=== PATIENT | male | born 1945 | race Caucasian/White ===

== ENCOUNTER 2019-01-08 19:21 | Inpatient (IN) ==
[2019-01-08] MEDS ORDERED: ICU PROTOCOL FOR HYPERGLYCEMIA PRN (23:19)
--- NOTE | 2019-01-08 23:45 | Critical Care Consultation ---
Date of Consultation January 08, 2019 Assessment & Plan (1) Admitted to intensive care unit: Reason Critically Ill: 73-year-old male in acute renal failure from presumed obstructive uropathy presenting with subsequent metabolic acidosis and hyperkalemia. NEURO - * CAM ICU: NEGATIVE * Pain: Consider Fentanyl if needed for flank pain in the setting of multiple renal stones. CARDIAC/VASCULAR - * Transient ?syncopal episode: * Lasted a few seconds. * No associated hypotension. * No seizure-like activity. * Nausea and diaphoresis noted. * EKG w/o acute findings. * Check trop --> will monitor trops in the severely anemic patient w/ potential for global ischemia. See Heme * EKG: NSR@83bpm. No ST/T-wave changes. QTc 493ms. * Monitor on telemetry. RESPIRATORY - * No h/o Pulmonary Disease. * Monitor for increasing O2 requirement s/p aggressive transfusion suggesting post transfusion lung injury (i.e. TACO/TRALI) GI/NUTRITION - * ??BRBPR: * No gross findings on rectal exam: Hemoccult NEGATIVE. * Prophylaxis: Famotidine * NPO currently RENAL/LYTES - * Acute Renal Failure: * Likely 2/2 Obstructive Uropathy in the setting of BPH, Multiple Ureteral Stones. * Initially put out 3L Clear urine at [facility] s/p Zuñiga placement. * Has since had gross hematuria. * In conversation w/ Urology, hematuria likely 2/2 diffuse bladder capillary injury w/ significant bladder dilation. * Monitor closely. Supportive care. * Avoid nephrotoxic Rx * Appreciate AM consultation. * Metabolic Acidosis: * 2/2 ARF. * AB.24/23/117/10, Serum BiCarb 13 * Will add Bicarb gtt. * Monitor electrolytes q4h. * Appreciate Nephrology consultation. * Hyperkalemia: * Likely 2/2 profound metabolic acidosis in combination w/ poor renal clearing. * Will treat as needed (insulin, dextrose, calcium, Kayexalate, bicarb) * Should see improvement w/ institution of BiCarb gtt. * IVF: D5W+150mEq HCO3@150mL/hr - * Prostate Enlargement: * Concerning in the setting of obstructive uropathy. * Keep Zuñiga in place. * Check PSA. * Ureterolithiasis, Nephrolithiasis: * Likely contributing to obstructive uropathy as well. * Agree w/ renal US. * Appreciate Urology consultation. * Gross Hematuria: * Per nephrology - likely diffuse bladder capillary injury. * Supportive care. * No bladder irrigation at this point. * Zuñiga in place - Strict I&Os. ENDO - * No h/o DM or Thyroid Dz * BSGs per unit protocol. ISS --> gtt per unit policy. HEME - * Anemia: * Presented to [facility] at 8.5/25 --> 7.1/21 upon arrival. * This is s/p 3 L so dilution is certainly contributing. * Of concern, however is the profound hematuria w/ significant drop in H&H over 2 hour in the department w/o any further dilution. * Will aggressively transfuse to maintain HGB ~8. * Trend Lactate for s/s of 2' ischemia. * Anticipate level of RBC/bone marrow suppression 2/2 ARF which has likely been deteriorating of the past 4 weeks. Will aggressively transfuse as patient likely to not produce significant RBCs in the acutely ill state. * Consider cell lysis in the anemic patient w/ hyperkalemia. Will add reticulocyte count. Consider haptoglobin, but as this is a send out, may be of little utility currently. ID - * No c/o infectious contribution at this time. * Trend fever curve. LINES/IV ACCESS - * PIVs x3 * Zuñiga DVT PROPHYLAXIS - * Will hold in the setting of anemia and likely degree of auto-anticoagulation in the profound uremic state. * SCDs I have personally spent 85 minutes of critical care time in the direct management of this patient. This is a life/limb threatening event. This includes time spent evaluating patient, direct bedside care, chart review, placing orders, interpretation of diagnostic studies, discussion with consultants, patient, and family members, as well as other required patient management activities. This time is exclusive of all separately billable procedures, and teaching time and separate from and in addition to any other critical care service time. Thank you for allowing us to participate in the care of this patient. Please refer to my attending physician's documentation for any further recommendations. (2) Acute renal failure (ARF): (3) Obstructive and reflux uropathy: (4) Hyperkalemia: (5) BPH (benign prostatic hyperplasia): (6) Hematuria: (7) Metabolic acidosis: (8) Syncope: (9) Anemia: Supervising Physician Co-Signing Physician Notes I have personally evaluated and examined this patient. I agree with assessment and plan of Marco Lopez PA-C. History of Present Illness Attending Physician: Franck Portillo DO History of Present Illness Patient is a 73-year-old male with significant past medical history of gout which is currently controlled with allopurinol alone who initially presented to the [facility] emergency department with complaints of ongoing abdominal discomfort and little to no urine output for the past 5 days. He reports that he has noticed some periumbilical abdominal discomfort rating his pain a 2/10 for the past month. He has noted nausea recently as well. With the poor urine output and nausea, he did present to the emergency department for further evaluation. While at the time in the emergency department, he was noted to have a significantly elevated systolic blood pressure greater than 200. He did receive 0.[address] the abdomen pelvis without contrast was obtained and demonstrated multiple renal stones as well as ureteral stones and bladder stones. His bladder was substantially distended with significant prostamegaly. Zuñiga catheter was placed and the patient drained 3 L of clear urine. Urinalysis demonstrated no signs of infection. Laboratory findings significant for anemia with hemoglobin of 8.5 and hematocrit of 25. Patient was found to be in acute renal failure with a BUN of greater than 150 and a creatinine of 25. Potassium was found to be 6.1. He received 2 L of normal saline in the emergency department and was subsequently transferred to our facility for further evaluation and management. Upon arrival in the ICU via ambulance, the patient was noted to be diaphoretic. He was complaining of some lower back pain which he equates to a prior history of back injury. The back pain is not new for him. Per nursing, during this episode of diaphoresis, he complained of nausea and did transiently lose consciousness for what was thought to be approximately 2 seconds. The patient does not remember this. During this episode, he complained of nausea alone. There was no complaints of chest pain, shortness of breath, pleuritic pain, abdominal pain, or numbness/weakness to the extremities. Patient states that he has had poor urine output for the past month, but acquitted to his history of enlarged prostate. He reports little to no urine output for the past 5 days. He does have the urge to go, but cannot pass urine. In addition, he reports that he has been constipated for the past few days as well and is only been having smears of stool. He did notice some blood in his smears recently, but no marco blood or significant black/tarry stools. Patient currently denies any headaches, dizziness, lightheadedness, chest pain, palpitations, shortness of breath, pleuritic pain, hematemesis, hematochezia or melena. He denies any significant alcohol use or illicit substance abuse. He reports a history of kidney disease. Allergies Allergy/AdvReac Type Severity Reaction Status Date / Time indomethacin [From Indocin] Allergy Unknown Unknown Verified 01/08/19 23:16 Home Medications Home Medications Medication Instructions Recorded Confirmed Type allopurinol PO DAILY 01/08/19 History Patient History Social History Preferred Language: Occitan Communication Ability: Effective Iron Pourer Required: No Beliefs That Will Affect Care: None Current Living Situation: Alone Other Information That Helps Us Care for You: No Feels Safe at Home: Yes Safety Concerns: Feels Safe At This Time Smoking Status: Former smoker Do You Dip or Chew Tobacco: No ; Hx Alcohol Use: No Hx Substance Use: No Review of Systems Review of Systems: A complete 10 point review of systems was reviewed with the patient with pertinent positives and negatives as per history of present illness. All else were negative. Physical Exam Physical Exam: VITAL SIGNS - Vital signs and nursing notes were reviewed. GENERAL - 73-year-old male appearing his stated age who is in no acute distress. Communicates well with provider and answers questions appropriately. SKIN -yellowish hue. HEAD - NC/AT. EYES - PERRL with EOMI bilaterally. Sclera anicteric. Palpebral conjunctiva pink and moist with no injection noted. EARS - No deformities of external structures noted on gross examination bilaterally. NOSE - Midline and without cyanosis. No epistaxis or purulent drainage noted. Septum midline without deviation or septal hematoma noted. MOUTH/OROPHARYNX - Without perioral cyanosis. Buccal mucosa pink and moist and without leukoplakia. Tongue midline with equal elevation of palate bilaterally. NECK - Neck with FROM. Supple to palpation. No nuchal rigidity. LUNGS - Chest wall symmetric without accessory muscle use, intercostals retractions, or central cyanosis. Normal vesicular breath sounds CTA B/L. No wheezes, rales, or rhonchi appreciated. CARDIAC - RRR with S1/S2. No murmur, rubs, or gallops appreciated. ABDOMEN - Abdominal contour flat without pulsations or visible masses. BS normoactive all four quadrants. No tenderness, palpable masses, hepatosplenomegaly, or ascites noted. EXTREMITIES - No clubbing or peripheral cyanosis. No pretibial edema present. +3/5 radial and dorsalis pedis pulses palpated throughout. +5/5 strength noted in UE/LE bilaterally. NEUROLOGIC - Cranial nerves II through XII grossly intact. Sensory intact to light touch throughout. Mild asterixis appreciated. PSYCH - A&Ox3 and cooperates fully with examiner. Pt is very pleasant and in teracts well with examiner. Results & Data Vital Signs (Past 12 Hours) Vital Signs Temp Pulse Pulse Resp BP BP Pulse Ox 01/08/19 23:01 36.7 C 86 25 H 103/59 L 100 01/08/19 23:00 92 H 16 163/103 H 98 PG Care Time/CCT Total # of Minutes Spent Total Time Spent with Patient: Total time spent is greater than 50% in coordination of care (as documented) at patient's floor/unit and/or counseling patient: Critical Care Time: Yes Total Critical Care Time: 85
[2019-01-08 23:52] LABS: iSTAT Allen Test Pass; iSTAT Art Bld Gas pCO2 Correct 23 mmHg (35-46); iSTAT Art Bld Gas pH Corrected 7.248 (7.35-7.45); iSTAT Arterial Blood Gas HCO3 10 meg/L (19-24); iSTAT Arterial Blood Gas pCO2 23 mmHg (35-46); iSTAT Arterial Blood Gas pH 7.24 (7.35-7.45); iSTAT Carbon Dioxide 11 mEq/l (24-31); iSTAT Site R Radial
[2019-01-08 23:58] LABS: INR 1.1 (0.9-1.1); Partial Thromboplastin Ratio 0.9; Partial Thromboplastin Time 25.7 Seconds (21.0-31.0); Prothrombin Time 11.5 Seconds (9.0-12.0)
[2019-01-09 00:30] LABS: Alanine Aminotransferase 11 U/L (12-78); Albumin Level 3.2 gm/dl (3.4-5.0); Alkaline Phosphatase 75 U/L (45-117); Aspartate Aminotransferase 6 U/L (15-37); BUN Creatinine Ratio 7.1 (10-20); Bilirubin Direct 0.1 mg/dl (0-0.2); Bilirubin,Total 0.5 mg/dl (0.2-1); Blood Urea Nitrogen 152 mg/dl (7-18); Carbon Dioxide 13 mmol/L (21-32); Chloride 109 mmol/L (98-107); Creatinine Clr Calc Pharmacy 2.9 ml/min; Est GFR (African American) 2.1; Est GFR (Non-African American) 1.8; Glucose 148 mg/dl (70-99); Magnesium 3.4 mg/dl (1.8-2.4); Phosphorus 8.7 mg/dl (2.5-4.9); Potassium 6.1 mmol/L (3.5-5.1); Sodium 139 mmol/L (136-145); Total Protein 7.1 gm/dl (6.4-8.2); Troponin I < 0.015 ng/ml (0-0.045)
[2019-01-09] MEDS ORDERED: NovoLIN-R INSULIN PER UNIT CHARGE IV STA (00:31)
[2019-01-09] MEDS ORDERED: DEXTROSE 50% 50 ML SYRINGE IV ONE (00:31)
[2019-01-09 00:33] LABS: Basophils # (auto) 0.01 K/uL (0-0.2); Basophils % (auto) 0.1 %; Eosinophils # (auto) 0.01 K/uL (0-0.5); Eosinophils % (auto) 0.1 %; Hematocrit (blood only) 20.9 % (42-52); Hemoglobin 7.1 g/dL (14.0-18.0); Immature Granulocytes # (auto) 0.02 K/uL (0.00-0.02); Immature Granulocytes % (auto) 0.2 %; Lymphocytes # (auto) 0.52 K/uL (1.2-3.4); Lymphocytes % (auto) 4.3 %; Mean Corpuscular Volume 91.7 fL (80-100); Mean Platelet Volume 11.1 fL (7.4-10.4); Monocytes # (auto) 0.39 K/uL (0.11-0.59); Monocytes % (auto) 3.2 %; Neutrophils # (auto) 11.26 K/uL (1.4-6.5); Neutrophils % (auto) 92.1 %; Platelet Count 143 K/uL (130-400); RDW Coefficient of Variation 14.1 % (11.5-14.5); RDW Standard Deviation 46.5 fL (36.4-46.3); Red Blood Count 2.28 M/uL (4.7-6.1); White Blood Count 12.21 K/uL (4.8-10.8)
[2019-01-09] MEDS ORDERED: SODIUM CHLORIDE 0.9% 250 ML IV PRN ×4 (00:33→19:52)
[2019-01-09 00:39] LABS: RBC Morphology Unremarkable
[2019-01-09] MEDS ORDERED: INSULIN HUMAN REGULAR PER UNIT 10 UNITS in SYRINGE 9.9 ML IV ONE (00:45)
[2019-01-09] MEDS ORDERED: CALCIUM GLUCONATE 10% 1,000 MG in SODIUM CHLORIDE 0.9% 50 ML IV ONE (00:45)
[2019-01-09 00:49] LABS: Immature Retic Fraction 6.8 % (2.3-13.4); Reticulated Hemoglobin 33.2 pg (28.2-36.6); Reticulocyte % 1.5 % (0.5-2.0); Reticulocytes # 0.03 10^6/uL (0.02-0.10)
[2019-01-09] MEDS: FAMOTIDINE 20 MG in SYRINGE 3 ML IV SCH ×3 (01:00→21:22)
[2019-01-09] MEDS: SODIUM BICARBONATE 8.4% 150 MEQ in DEXTROSE 5% 1,000 ML IV SCH ×4 (01:00→23:24)
--- NOTE | 2019-01-09 01:44 | History and Physical Report ---
DATE OF ADMISSION: 01/08/2019 CHIEF COMPLAINT: Abdominal pain, found to have MACI and hyperkalemia. HISTORY OF PRESENT ILLNESS: This is a 73-year-old male with past medical history significant gout, diagnosed with enlarged prostate about 4 years ago, but he did not follow up. He is from [place]. His family doctor is at [facility]. Currently, he has changed doctor and he is following with a nurse practitioner,has history of gout. Denies any other medical problems. He is having some abdominal discomfort since about 2-3 weeks, like whenever he leans forward, heavy ball like feeling in his belly and since last 1 week he is having very little amount of urine. He is constipated since the last few days and today also noticed small amount of blood in the stools. He went to the [facility] where he was found to have creatinine of 20.5, potassium of 6.4, and CAT scan of the abdomen and pelvis done, which showed prostatomegaly and obstructive uropathy, also multiple stones in the ureter and kidneys, status post Zuñiga catheter at [facility] and drained about 3 liters of urine and was transferred here for further management. Now, he is having hematuria in the Zuñiga bag. The patient says he is feeling somewhat chilly and shaky and he thinks possibly his blood pressure is going up and down, it is going on for the last few days. Denies any headache. Complains of some dizziness. No blurred vision, no sore throat, no difficulty swallowing. No appetite since last couple of days. Denies any chest pain, no shortness of breath, no cough, was feeling nauseous. He had some swelling of the legs, but that is gone now. No rash. Otherwise, until this happened, he was very active. He lives alone. His sister lives in [place]. ALLERGIES: INDOCIN. PAST MEDICAL HISTORY: As mentioned above. PAST SURGICAL HISTORY: Appendectomy, tonsillectomy, arthroscopy of his wrist and elbow. MEDICATIONS: Allopurinol. FAMILY HISTORY: Father of alcoholism. SOCIAL HISTORY: Used to smoke pipe, quit about 7 years ago. Denies alcoholism. No drug use. Lives alone. REVIEW OF SYMPTOMS: As per HPI. Rest of review of symptoms negative. PHYSICAL EXAMINATION: GENERAL: The patient is of moderate build, not in acute distress. VITAL SIGNS: Temperature 36.7, pulse 86, respiratory rate 24, blood pressure 103/59, oxygen 100% on room air. HEENT: No pallor, no icterus. Pupils equal, round, and reactive to light. Oral mucosa moist. NECK: No JVD, no neck masses, no carotid bruit, no lymphadenopathy. CARDIOVASCULAR: S1, S2 heard. Regular rate and rhythm. No murmur, no gallop. RESPIRATORY SYSTEM: Normal AP diameter. No accessory muscle use. No wheezing, no crackles. ABDOMEN: Soft, bowel sounds present. Mild abdominal discomfort. Palpation of mass in the lower abdomen. No flank tenderness. CENTRAL NERVOUS SYSTEM: Cranial nerves II-XII grossly intact. Nonfocal. EXTREMITIES: No edema, no erythema. LABORATORY DATA: Labs done at [facility] show PT 12.5, INR 1, APTT 31.8. WBC 5.9, hemoglobin 8.5, hematocrit 25.4, platelets 126. Lactic acid is 0.6. Sodium 138, potassium 6.4, chloride 100, bicarbonate 16, anion gap 28, blood urea nitrogen 175, creatinine 125, glucose 110, calcium 9.4, total bilirubin 0.5, AST 7, ALT 14, alkaline phosphatase 88. Amylase 265. Lipase 3400. Urinalysis unremarkable. CT abdomen and pelvis, markedly distended bladder, enlarged prostate, multiple calculi in kidneys, ureters and urinary bladder. EKG done in our hospital. Normal sinus rhythm with rate of 83, Q-waves in inferior leads. ASSESSMENT AND PLAN: This is a 73-year-old male presents with abdominal discomfort and found to have acute kidney injury and obstructive uropathy. 1. Acute kidney injury with creatinine of 25 in the [facility] labs and also CAT scan showing distended bladder with prostatomegaly and renal stones in kidney and ureter, drained about 3 liters of fluid after Zuñiga was placed at [facility]. He was notified he had enlarged prostate about 4 years ago, but did not follow up. We will continue Zuñiga. Fluids as per the rn employee health. We will consult nephrology and urology.Will get renal ultrasound. Closely monitor in the ICU. 2. Hyperkalemia. Potassium of 6.2. We will repeat the labs now. EKG looks okay, if still elevated, we will give calcium gluconate, insulin and dextrose. The patient also has anion gap metabolic acidosis secondary to above. We will discuss with the critical care about placing him on bicarbonate drip, consulting nephrology. 3. gout, on allopurinol. 4. Anemia, hemoglobin of 8.5. We will repeat labs now. He said he had a small blood in the stools today and also having Hematuria. We will check the stool sample. If necessary, we will consult GI. Urology is consulted. We will transfuse as needed. Could also be from his ongoing illness. 5. Deep venous thrombosis prophylaxis, SCDs. DISPOSITION: Closely monitor in the ICU. Level 1 full code only if there is a chance of recovery as per my discussion with the patient. MTDD
[2019-01-09 02:11] LABS: Hematocrit (blood only) 17.2 % (42-52); Hemoglobin 5.8 g/dL (14.0-18.0)
[2019-01-09 02:44] LABS: Calcium 7.9 mg/dl (8.5-10.1); Creatinine Clr Calc Pharmacy 2.9 ml/min; Est GFR (African American) 2.1; Est GFR (Non-African American) 1.8; Magnesium 3.3 mg/dl (1.8-2.4); Potassium 6.1 mmol/L (3.5-5.1)
[2019-01-09] MEDS ORDERED: SODIUM BICARB 8.4% INJ 50 MEQ/50 ML SYR IV STA (02:59)
[2019-01-09 03:01] LABS: Phosphorus 8.4 mg/dl (2.5-4.9)
[2019-01-09 03:14] LABS: BUN Creatinine Ratio 7.4 (10-20)
--- NOTE | 2019-01-09 06:01 | Critical Care Progress Note ---
Date of Service January 09, 2019 Assessment & Plan (1) Obstructive and reflux uropathy: Reason Critically Ill: 73-year-old male who presented to [facility] with weakness and abdominal distension and was found to have a Cr>21.5 & BUN >180, had 3L of fluid expressed following Christopher cath at OSH, and who was transferred here for further care and whose course was complicated by acute anemia with sanginous/serosanginous output into his christopher catheter. Neuro - CAM ICU: NEGATIVE No pain at time of exam. Fentanyl 50-100mcg PRN for pain if needed Cardiac - History of syncopal episode - Single episode lasting a few seconds prior to admission and without seizure activity, hypotension, or EKG change but with nausea and diaphoresis. - Trop I initially negative, .079 at midnight, repeat downtrending to .076 @ noon - EKG nsr without ST depression/elevation or T wave inversions. - Monitor on tele Respiratory - - No history of pulmonary disease - Lungs clear to auscultation, no congestion on CXR. - At risk for TACO/TRALI given xfusions GI - NPO advance to renal diet Famotidine 20mg IV BID Reported BRBPR, hemoccult negative RENAL/LYTES - Acute Renal Failure 2/2 Obstructive Uropathy - Admission cr 21.5 with BUN 180, no known prior renal disease - 3L clear urine output at OSH s/p christopher placement - 3L drained at once, hematuria since. Suspect diffuse bladder capillary injury. Discussed with urology. - Urology consulted, nephrology consulted - L Jugular dialysis access line placed, scheduled for dialysis today Metabolic Acidosis 2/2 Acute Renal Failure - Bicarb IV 150cc/hr - BMP Q8H - Dialysis per nephrology Hyperkalemia 2/2 ARF & metabolic acidosis - s/p insulin, dextrose, calcium, bicarb tx - Pending dialysis tx - Obstructive Uropathy 2/2 Prostatomegaly vs Nephrolithiasis - PSA 21, consistent with observed prostatomegaly - Renal US showed severe bilateral hydroureteronephrosis, a large bladder mass vs pseudomass noted by radiology to be less likely though not excluded for neoplasm given it was not on CT. Urologic consultation for cystoscopy recommended. Bladder continues to be distended, christopher was clamped prior to exam. Heterogenous clot on bedside US, case discussed with Urology who will see him at bedside this afternoon with possible placement of triple lumen Hematuria 2/2 diffuse capillary injury - Continue to follow - Clot management as noted above ENDO - Insulin aspart SSI Adequate glycemic control today HEME - - Hgb nathaniel from 5.8 to 8.8 follow 2uPRBC, +1 unit pRBC this AM for hgb fall to 7.0 - Hematuria with clot present as noted above - CBC Q8H ID - No concerns for infection at this point. Monitor fever curve. INTEGUMENTARY - No acute concerns LINES/IV ACCESS - PIVs intact. DVT PROPHYLAXIS - Heparin 5,000u SQ BID Thank you for allowing us to be part of this patient's care. Please refer to []'s documentation for any further recommendations. (2) Acute renal failure (ARF): (3) Hyperkalemia: (4) BPH (benign prostatic hyperplasia): (5) Hematuria: (6) Metabolic acidosis: (7) Anemia: (8) Nephrolithiasis: (9) Hyperphosphatemia: (10) Hypertension: (11) Admitted to intensive care unit: Supervising Physician Co-Signing Physician Notes Dr. Mcghee was resident physician during care of patient. I separately evaluated patient for burnett portions of the history and the exam. I was present during the critical portion of medical decision making, and I discussed the case with the resident. I generally agree with the findings and plan. Patient will require urgent dialysis secondary to significant hyperkalemia and significant uremia. Patient is coherent and able to consent, understands gravity of situation has coherent thought processes and logical reasoning. Patient still has hematuria however it is not clotting, he has received 3 units packed red blood cells and we will continue to trend his H&H and BMP at the same time. Will start renal diet. Discussed with nephrology the patient to undergo hemodialysis today, I assisted with the placement of a left IJ temporary hemodialysis catheter. Reviewed nephrology notes and concur. I have personally spent 45 minutes of critical care time in the direct management of this patient. This is a life/limb threatening event. This includes time spent evaluating patient, direct bedside care, chart review, placing orders, interpretation of diagnostic studies, discussion with consultants, patient, and/or family members regarding treatment decisions, as well as other required patient management activities. This time is exclusive of all separately billable procedures, and teaching time and separate from and in addition to any other critical care service time. Subjective Mr. Mckenzie reports he feels fatigued today. He reports that prior to transfer to [facility] he felt tremulous, lighteaded,dizzy, and gobally weak. He reports since catheterization at OSH and transfer to [facility] he feels his tremors have gotten better. His lightheadedness/dizzyness have improved but 'I have not been out of bed yet so can't really be sure.' He denies abdominal pain, back pain, shortness of breath, chest pain, chest pressure, palpitations, back pain, flank pain, and focal weakness this morning. He reports that he didn't experience abdominal pain at any point prior to admission, but rather felt 'some pressure' and noticed 'a bowling ball in my belly.' He denies past cardiac, respiratory, urinary, alcohol, and substance use. Endorses former tobacco use. He is concerned about what the next steps in his care are, and whether he will require dialysis. His son is present at time of vist and was updated on both his presentation and history. Review of Systems Review of Systems: Constitutional: Denies fever, chills, malaise, weight change Eyes: Denies double vision, vision change, eye pain ENT: Denies ear pain, sore throat, sinus pain Cardiovascular: Denies chest pain, chest pressure, palpitations Respiratory: Denies shortness of breath, sputum production, difficulty breathing. Endorses mild cough this morning. Gastrointestinal: Denies abdominal pain, nausea, vomiting, constipation, diarrhea. Endorses low abdominal distension improved from prior. Genitourinary: Denies pain with urination. Christopher in place. Musculoskeletal: Denies endorses global weakness without focal weakness, muscle aches/pain, joint aches/pain Integumentary:Denies rash, lesions, bruising Neurological: Denies headache, numbness, tingling, focal weakness Physical Exam Physical Exam: General: A&Ox3. NAD. Cooperative. Answers questions appropriately. Thought process linear, goal directed. HEENT: Atraumatic, normocephalic. PERLAA. EoM intact without nystagmus. No scleral icterus. Pulm: CTAB A&P. -wheezes, -rales, -rhonchi. Symmetrical chest rise. No increase work of breathing. No respiratory distress. Cardiac: RRR, -mrg. Radial pulses intact and symmetrical. Abdominal: Firm low central/RLQ abdominal distension. Nontender. BS present. No CVA tenderness. : Christopher in place, clamped, with serosanguinous urine in catheter bag. Ext: Mild asterixis. No distal extremity edema. Sensation intact in distal extremiteis, strength 5/5 in distal extremities including ict customer support officer, wrist flexi on/extension, elbow flexion/extension, and ankle dorsiflexion/plantarflexion. Results & Data Vital Signs (Past 12 Hours) Vital Signs Temp Pulse Pulse Resp BP BP Pulse Ox 01/09/19 05:36 36.4 C L 16 134/89 98 01/09/19 05:25 36.4 C L 78 20 135/90 100 01/09/19 05:05 36.9 C 82 20 135/80 99 01/09/19 04:44 36.7 C 92 H 14 135/81 100 01/09/19 04:20 36.4 C L 82 18 138/89 99 01/09/19 03:49 36.6 C 86 20 136/75 100 01/09/19 03:34 36.5 C 93 H 20 131/73 100 01/09/19 03:16 36.7 C 85 20 109/70 99 01/09/19 02:30 36.7 C 92 H 18 101/59 L 98 01/09/19 02:15 36.7 C 98 H 20 105/72 100 01/09/19 01:56 36.7 C 101 H 20 80/55 L 100 01/09/19 01:00 92 H 14 110/72 100 01/09/19 00:15 87 16 104/63 100 01/09/19 00:00 98 H 13 93/59 L 99 01/08/19 23:01 36.7 C 86 25 H 103/59 L 100 01/08/19 23:00 92 H 16 163/103 H 98 PG Care Time/CCT Total # of Minutes Spent Total Time Spent with Patient: Total time spent is greater than 50% in coordination of care (as documented) at patient's floor/unit and/or counseling patient: Critical Care Time: Yes Total Critical Care Time: 45 Resident Activity Tracking Resident Involvement: Resident Care Provided Care Provided: Adult [facility] Medicine
[2019-01-09 07:06] LABS: INR 1.1 (0.9-1.1); Prothrombin Time 11.5 Seconds (9.0-12.0)
[2019-01-09 07:20] LABS: Basophilic Stippling 1+; Basophils # (auto) 0.01 K/uL (0-0.2); Basophils % (auto) 0.1 %; Hematocrit (blood only) 25.4 % (42-52); Hemoglobin 8.8 g/dL (14.0-18.0); Immature Granulocytes # (auto) 0.02 K/uL (0.00-0.02); Immature Granulocytes % (auto) 0.2 %; Lymphocytes # (auto) 0.47 K/uL (1.2-3.4); Lymphocytes % (auto) 4.8 %; Mean Corpuscular Hgb Conc 34.6 g/dL (32-36); Mean Corpuscular Volume 87.3 fL (80-100); Mean Platelet Volume 11.2 fL (7.4-10.4); Monocytes # (auto) 0.47 K/uL (0.11-0.59); Monocytes % (auto) 4.8 %; Neutrophils # (auto) 8.75 K/uL (1.4-6.5); Neutrophils % (auto) 90.1 %; Platelet Count 99 K/uL (130-400); Platelet Estimate Decreased (Normal); RDW Coefficient of Variation 14.2 % (11.5-14.5); RDW Standard Deviation 45.5 fL (36.4-46.3); Red Blood Count 2.91 M/uL (4.7-6.1); White Blood Count 9.72 K/uL (4.8-10.8)
[2019-01-09 07:22] LABS: BUN Creatinine Ratio 7.2 (10-20); Creatinine Clr Calc Pharmacy 3.1 ml/min; Est GFR (African American) 2.3; Magnesium 3.3 mg/dl (1.8-2.4); Phosphorus 8.4 mg/dl (2.5-4.9); Troponin I 0.079 ng/ml (0-0.045)
--- NOTE | 2019-01-09 07:39 | XRay Report ---
XR chest 1V portable HISTORY: Shortness of breath. congestion? COMPARISON: None. FINDINGS: The lungs are clear. Cardiac silhouette is normal in size. No pleural effusions. No pneumot horax. IMPRESSION: No acute process. Electronically signed by: Sanchez Yanes M.D. 01/09/2019 7:37 AM
--- NOTE | 2019-01-09 07:41 | Urology Consultation ---
Date of Consultation January 09, 2019 Assessment & Plan (1) BPH (benign prostatic hyperplasia): (2) Hematuria: 73yo M with ZHOU, bilateral hydronephrosis and hydroureter with severe MACI, hematuria Continue strict I&Os Discussed with Dr. Grande, need to allow for max drainage/decompression of bladder for a few days, and allow for medical stability prior to discussing surgical intervention/stenting. CT images reviewed, possible small ~2mm left distal ureteral stone however due to degree of hydroureter, pt will likely pass this spontaneously. NO plans for acute surgical intervention at this time, okay to provide diet from our standpoint. Appreciate nephrology's recommendations. Thank you for allowing us to participate in the acute care of Mr. Potts. We will continue to monitor peripherally while inpatient. Supervising Physician Co-Signing Physician Notes CT reviewed agree with above History of Present Illness Reason for Consultation: AUR, bilateral hydro, MACI Requesting Physician: Dr. Portillo Attending Physician: Franck Portillo, DO History of Present Illness 73yo M with PMHx BPH and gout admitted through [facility] with c/o worsening abdominal pain, constipation and urinary retention for a 2-3 weeks time. On presentation to [facility], his creatinine was 20.5, potassium of 6.5. CT reveals grossly bilateral severe hydronephrosis and hydroureter with distended bladder, BPH, few bladder stones. Possibly with bilateral ureteral stones, nonobstructing due to degree of hydroureter.. He did report some chills after christopher catheter placed, labile BPs. Christopher catheter placed in [facility], drained ~3L output then turned to hematuria. In addition, he was found to be hyperglycemic and acutely anemic, receiving transfusion while assessing pt this AM He appears comfortable on exam today, son at bedside. He is alert and oriented, on RA. Denies n/v/f/c. NPO awaiting our recommendations. He has previously followed with Urology in [place], has not been seen in a few years. Does not take any medications for BPH Stays active and exercises routinely, in otherwise good health. Allergies Allergy/AdvReac Type Severity Reaction Status Date / Time indomethacin [From Indocin] Allergy Unknown Unknown Verified 01/08/19 23:16 Patient History Social History Preferred Language: Divehi Communication Ability: Effective Creative Coordinator Required: No Beliefs That Will Affect Care: None Current Living Situation: Alone Other Information That Helps Us Care for You: No Feels Safe at Home: Yes Safety Concerns: Feels Safe At This Time Smoking Status: Former smoker Do You Dip or Chew Tobacco: No ; Hx Alcohol Use: No Hx Substance Use: No Review of Systems Review of Systems: Constitutional: Denies fever, chills, sweats, malaise Eyes: Denies problem reported ENMT: Denies dizziness Resp: Denies cough, Denies shortness of breath CV: Denies JVD GI: Denies nausea/vomiting : +hematuria, Denies suprapubic or flank pain, dysuria, urgency, frequency, MS: Denies swelling, stiffness Integ: Denies rash, erythema Neuro: Denies falls, weakness Psych: Denies behavior change Endo: Denies polyphagia, polydipsia Heme: Denies easy bleeding Physical Exam Constitutional: no acute distress and not ill appearing Eyes: no nystagmus ENMT: Ears: no hearing impairment Neck: trachea midline Respiratory: no respiratory distress and no cough Cardiovascular: Vessels: no JVD Chest (Breasts): Chest: normal inspection of chest Gastrointestinal (Abdomen): Inspection/Auscultation: abdomen not distended and no abdominal edema Percussion/Palpation: abdomen soft and + abdomen firm; abdomen nontender and no guarding Musculoskeletal: Head/Neck/Chest: normocephalic and head atraumatic Skin: no rashes, warm and dry Neurologic: awake; not confused and not obtunded Psychiatric: Orientation: alert and oriented x 3 Eye Contact: good eye contact Affect: no depressed affect Genitourinary: no CVA tenderness circumcised, 16fr christopher cather draining maroon colored urine. Has not required irrigation per nursing. Lymphatic: no lymphadenopathy and no lymphedema Results & Data Vital Signs (Past 12 Hours) Vital Signs Temp Pulse Pulse Resp BP BP Pulse Ox 01/09/19 07:33 37.1 C 82 23 153/116 H 98 01/09/19 07:27 37.1 C 97 H 17 152/103 H 99 01/09/19 06:40 36.5 C 91 H 20 170/95 H 99 01/09/19 06:10 36.9 C 89 14 152/78 H 99 01/09/19 05:55 36.5 C 85 20 166/83 H 100 01/09/19 05:36 36.4 C L 16 134/89 98 01/09/19 05:25 36.4 C L 78 20 135/90 100 01/09/19 05:05 36.9 C 82 20 135/80 99 01/09/19 04:44 36.7 C 92 H 14 135/81 100 01/09/19 04:20 36.4 C L 82 18 138/89 99 01/09/19 03:49 36.6 C 86 20 136/75 100 01/09/19 03:34 36.5 C 93 H 20 131/73 100 01/09/19 03:16 36.7 C 85 20 109/70 99 01/09/19 02:30 36.7 C 92 H 18 101/59 L 98 01/09/19 02:15 36.7 C 98 H 20 105/72 01/09/19 01:56 36.7 C 101 H 20 80/55 L 100 01/09/19 01:00 92 H 14 110/72 01/09/19 00:15 87 16 104/63 100 01/09/19 00:00 98 H 13 93/59 L 99 01/08/19 23:01 36.7 C 86 25 H 103/59 L 100 01/08/19 23:00 92 H 16 163/103 H 98
[2019-01-09 07:48] LABS: Base Excess VBG -4.9 mEq/L; HCO3 VBG 19 mmol/L; PCO2 VBG 32 mmHg (38-50); PO2 VBG 30 mmHg
[2019-01-09 07:53] LABS: Oxygen Saturation VBG < 60.0 %
--- NOTE | 2019-01-09 08:22 | Hospitalist Progress Note ---
Date of Service January 09, 2019 Assessment & Plan (1) Anemia: (2) Syncope: (3) Metabolic acidosis: (4) Hematuria: (5) BPH (benign prostatic hyperplasia): (6) Hyperkalemia: (7) Obstructive and reflux uropathy: (8) Acute renal failure (ARF): (9) Admitted to intensive care unit: ASSESSMENT AND PLAN: This is a 73-year-old male presents with abdominal discomfort and found to have acute kidney injury and obstructive uropathy. 1. Acute kidney injury with creatinine of 25 in the [facility] labs and also CAT scan showing distended bladder with prostatomegaly and renal stones in kidney and ureter, drained about 3 liters of fluid after Zuñiga was placed at [place]. He was notified he had enlarged prostate about 4 years ago, but did not follow up. We will continue Zuñiga. Fluids as per the feather sawyer. We will consult nephrology and urology.Will get renal ultrasound. Closely monitor in the ICU. 2. Hyperkalemia. Potassium of 6.2. We will repeat the labs now. EKG looks okay, if still elevated, we will give calcium gluconate, insulin and dextrose. The patient also has anion gap metabolic acidosis secondary to above. We will discuss with the critical care about placing him on bicarbonate drip, consulting nephrology. 3. gout, on allopurinol. 4. Anemia, hemoglobin of 8.5. We will repeat labs now. He said he had a small blood in the stools today and also having Hematuria. We will check the stool sample. If necessary, we will consult GI. Urology is consulted. We will transfuse as needed. Could also be from his ongoing illness. 5. Deep venous thrombosis prophylaxis, SCDs. ROS-No Headache, No Visual Changes, No Nausea, No Vomiting, No Fever, No Chills, No Neck Pain or Stiffness, No Chest Pain, No Palpitations, No SOB, No MOREIRA, No Cough, No Sputum, No Wheezing, No Abdominal Pain, No Diarrhea, No Hematemesis, No Hemoptysis, No Unexpected Weight Loss, No Flank pain, No Melena, No Hematochezia, No Frequency, No Urgency, No Burning, No Hematuria, No Rashes, No Diaphoresis. Appetite is Normal Physical Exam Gen-AAO x 3, NAD, Afebrile Head-NCAT, EOMI, PERRLA, Anicteric Sclera, No Posterior Pharyngeal Erythema Neck-Supple, No JVD, No Thyromegaly, No Masses, No LAD, No Bruits Lungs-Clear to Auscultation Bilaterally, No Rales, No Rhonchi, No Wheezing, No Crepitus Chest-No S4, +S1, +S2, No S3, No Murmurs, No Rubs, No Gallops, No Ectopy Abdomen-Soft, Bowel Sounds Present, Non Tender, Non Distended, No Hepatomegaly, No Splenomegaly, No Palpable Masses, No Rebound, No Rigidity, No Guarding Musculoskeletal-Full Range of Motion Bilaterally, No CVAT Extremities-No Cyanosis, No Clubbing, No Edema Nuero-Cranial Nerves II-XII grossly intact, Motor WNL, DTRs WNL, Strength WNL, Non Focal Psych-Normal Mood Results & Data Vital Signs (Past 12 Hours) Vital Signs Temp Pulse Pulse Resp BP BP Pulse Ox 01/09/19 07:33 37.1 C 82 23 153/116 H 98 01/09/19 07:27 37.1 C 97 H 17 152/103 H 99 01/09/19 06:40 36.5 C 91 H 20 170/95 H 99 01/09/19 06:10 36.9 C 89 14 152/78 H 99 01/09/19 05:55 36.5 C 85 20 166/83 H 100 01/09/19 05:36 36.4 C L 16 134/89 98 01/09/19 05:25 36.4 C L 78 20 135/90 100 01/09/19 05:05 36.9 C 82 20 135/80 99 01/09/19 04:44 36.7 C 92 H 14 135/81 100 01/09/19 04:20 36.4 C L 82 18 138/89 99 01/09/19 03:49 36.6 C 86 20 136/75 100 01/09/19 03:34 36.5 C 93 H 20 131/73 100 01/09/19 03:16 36.7 C 85 20 109/70 99 01/09/19 02:30 36.7 C 92 H 18 101/59 L 98 01/09/19 02:15 36.7 C 98 H 20 105/72 100 01/09/19 01:56 36.7 C 101 H 20 80/55 L 100 01/09/19 01:00 92 H 14 110/72 100 01/09/19 00:15 87 16 104/63 100 01/09/19 00:00 98 H 13 93/59 L 99 01/08/19 23:01 36.7 C 86 25 H 103/59 L 100 01/08/19 23:00 92 H 16 163/103 H 98 Current Diagnoses Anemia, unspecified (01/08/19) Acidosis (01/08/19) Hyperkalemia (01/08/19) Obstructive and reflux uropathy, unspecified (01/08/19) Acute kidney failure, unspecified (01/08/19) Benign prostatic hyperplasia without lower urinary tract symptoms (01/08/19) Hematuria, unspecified (01/08/19) Syncope and collapse (01/08/19) Other specified health status (01/08/19) Allergies indomethacin [From Indocin] Allergy (Unknown, Verified 01/08/19 23:16) Unknown Height/Weight/Isolation Height 5 ft 7 in Weight 76.8 kg Chemistry 01/08/19 01/09/19 01/09/19 23:34 01:57 06:25 Sodium 139 138 139 Potassium 6.1 H* 6.1 H* 6.0 H Chloride 109 H 108 H 105 Carbon Dioxide 13 L 14 L 19 L Anion Gap 18.0 H 17.0 H 15.0 H BUN 152 H 159 H 142 H Creatinine 21.50 H* 21.60 H* 19.90 H* D Glucose 148 H 261 H 210 H
[2019-01-09] MEDS: HEPARIN SOD 5,000 UNIT/0.5 ML VIAL SQ SCH ×2 (09:18→21:22)
--- NOTE | 2019-01-09 09:48 | Nephrology Consultation ---
Date of Consultation January 09, 2019 Assessment & Plan (1) Acute renal failure (ARF): Patient with acute renal failure likely due to chronic obstructive uropathy. CAT scan showed evidence of obstructive uropathy and multiple kidney stones at the outside hospital. We do not have official report. He is getting a renal ultrasound today. He is clearly uremic with multiple electrolyte derangements. I recommend starting hemodialysis for uremia, hyperkalemia and acidosis. He has consented to dialysis. We will dialyze him today for 2 hours, blood flow 250, dialysate flow 500 and no UF on a 1K bath. We will plan to dialyze him tomorrow as well. Plan was discussed with ICU attending (2) Hyperkalemia: Due to acute renal failure and acidosis. Agree with isotonic bicarbonate infusion until dialysis. We can stop the bicarb drip once a dialysis catheter is placed. We will dialyze him on a 1K bath. Patient should be on a renal diet (3) Anemia: Likely due to chronic renal failure. Will check iron stores and obtain further records from primary care doctor. He will likely need iron and Procrit if we are sure that he does not have prostate cancer. (4) Nephrolithiasis: Patient with kidney stones on imaging. He will need outpatient follow-up with nephrology for metabolic work-up of his kidney stones and further recommendations on management. (5) Hyperphosphatemia: We will start him on Renvela 800 mg 3 times daily with meals. (6) Hypertension: Blood pressure is high. Anticipate improvement with dialysis. He will likely need beta-alberto given episodes of tachycardia. No need to start antihypertensives now. Will wait to see the blood pressure trend after dialysis. History of Present Illness Reason for Consultation: Acute renal failure and hyperkalemia Requesting Physician: Eric Travis MD Attending Physician: Franck Portillo DO History of Present Illness This is a 73-year-old male with the past medical history of gout and BPH with elevated PSA 4 years ago but decided not to follow through with medical recommendations and has been managing conservatively by diet and exercise was admitted on 01/08/2019 with acute renal failure. He reports progressively worsening urinary symptoms such as urinary hesitancy and dribbling. The symptoms progressed to abdominal pain and distention which took him to the ER in [facility]. He was found to have a creatinine of 25 and a BUN of 175 with potassium of 6.4. CAT scan showed multiple small nonobstructive kidney stones and obstructive uropathy per ER report. Zuñiga catheter was placed, he was given normal saline IV and referred. He otherwise feels well denying any shortness of breath or confusion. He has nausea but no diarrhea. He did have some bloody stools yesterday. He reports some palpitations. Blood pressure was high with systolic of about 200 yesterday but now down to 150. He is also anemic with hemoglobin of 8.8. He does not smoke or drink alcohol. He lives in [place]. Son was at the bedside. Allergies Allergy/AdvReac Type Severity Reaction Status Date / Time indomethacin [From Indocin] Allergy Unknown Unknown Verified 01/08/19 23:16 Home Medications Home Medications Medication Instructions Recorded Confirmed Type allopurinol PO DAILY 01/08/19 History Patient History Social History Preferred Language: Latvian Communication Ability: Effective Global Account Executive Required: No Beliefs That Will Affect Care: None Current Living Situation: Alone Other Information That Helps Us Care for You: No Feels Safe at Home: Yes Safety Concerns: Feels Safe At This Time Smoking Status: Former smoker Do You Dip or Chew Tobacco: No ; Hx Alcohol Use: No Hx Substance Use: No Review of Systems Review of Systems: All systems reviewed & are unremarkable except as noted in HPI & below Physical Exam Physical Exam: General exam: Appears comfortable, no acute distress HEENT: Pupils are equal and reactive to light. moderate pallor Neck: No JVD, neck is supple trachea is midline Respiratory system: Clear breath sounds bilaterally. Gastrointestinal: Abdomen is soft, non distended, non tender, bowel sounds are present CVS: Regular rate and rhythm. No murmurs, rubs or gallops Musculoskeletal: No joint or muscle tenderness Extremities: Non tender, no edema, peripheral pulses are present Neuro: Oriented, + flapping tremors, no focal neurological deficits Skin: No rashes Results & Data Vital Signs (Past 12 Hours) Vital Signs Temp Pulse Pulse Resp BP BP Pulse Ox 01/09/19 07:33 37.1 C 82 23 153/116 H 98 01/09/19 07:27 37.1 C 97 H 17 152/103 H 99 01/09/19 06:40 36.5 C 91 H 20 170/95 H 99 08/27/19 06:10 36.9 C 89 14 152/78 H 99 01/09/19 05:55 36.5 C 85 20 166/83 H 100 01/09/19 05:36 36.4 C L 16 134/89 98 01/09/19 05:25 36.4 C L 78 20 135/90 100 01/09/19 05:05 36.9 C 82 20 135/80 99 01/09/19 04:44 36.7 C 92 H 14 135/81 100 01/09/19 04:20 36.4 C L 82 18 138/89 99 01/09/19 03:49 36.6 C 86 20 136/75 100 01/09/19 03:34 36.5 C 93 H 20 131/73 100 01/09/19 03:16 36.7 C 85 20 109/70 99 01/09/19 02:30 36.7 C 92 H 18 101/59 L 98 01/09/19 02:15 36.7 C 98 H 20 105/72 100 01/09/19 01:56 36.7 C 101 H 20 80/55 L 100 01/09/19 01:00 92 H 14 110/72 100 01/09/19 00:15 87 16 104/63 100 01/09/19 00:00 98 H 13 93/59 L 99 01/08/19 23:01 36.7 C 86 25 H 103/59 L 100 01/08/19 23:00 92 H 16 163/103 H 98 Laboratory Results Laboratory Results - last 24 hr 01/08/19 01/08/19 01/08/19 22:54 23:34 23:34 WBC 12.21 H RBC 2.28 L Hgb 7.1 L Hct 20.9 L* MCV 91.7 MCH 31.1 MCHC 34.0 RDW Std Deviation 46.5 H RDW Coeff of Yessy 14.1 Plt Count 143 MPV 11.1 H Immature Gran % (Auto) 0.2 Neut % (Auto) 92.1 Lymph % (Auto) 4.3 Doddridge % (Auto) 3.2 Eos % (Auto) 0.1 Baso % (Auto) 0.1 Reticulocyte % (Auto) 1.5 Immature Gran # (Auto) 0.02 Neut # (Auto) 11.26 H Lymph # (Auto) 0.52 L Doddridge # (Auto) 0.39 Eos # (Auto) 0.01 Baso # (Auto) 0.01 Reticulocyte # 0.03 Absolute Nucleated RBC 0.00 Nucleated RBC % (auto) 0.0 Platelet Estimate RBC Morphology Unremarkable Basophilic Stippling Immature Retic Fraction 6.8 Retic Hgb Content 33.2 PT INR APTT PTT Ratio Sample Site POC pH POC pCO2 POC pO2 POC HCO3 POC Total CO2 POC Base Excess ABG pH (Temp Correct) ABG pCO2 (Temp Corrct POC ABG pO2 at Pt Temp POC ABG O2 Sat Henrique Test VBG pH VBG pCO2 VBG pO2 VBG HCO3 VBG O2 Saturation VBG Base Excess Barometric Pressure O2 Delivery Device Sodium Potassium Chloride Carbon Dioxide Anion Gap BUN Creatinine Est Cr Clr Drug Dosing Est GFR ( Amer) Est GFR (Non-Af Amer) BUN/Creatinine Ratio Glucose POC Glucose Lactate Calcium Ionized Calcium Phosphorus Magnesium Total Bilirubin Direct Bilirubin AST ALT Alkaline Phosphatase Troponin I Total Protein Albumin Lipase Prostate Specific Ag Procalcitonin Nasal Screen MRSA (PCR) Negative Stool Occult Bld Scrn Hepatitis C Ab Screen Neg Blood Type Blood Type Recheck Antibody Screen Crossmatch 01/08/19 01/08/19 01/08/19 23:34 23:34 23:34 WBC RBC Hgb Hct MCV MCH MCHC RDW Std Deviation RDW Coeff of Yessy Plt Count MPV Immature Gran % (Auto) Neut % (Auto) Lymph % (Auto) Doddridge % (Auto) Eos % (Auto) Baso % (Auto) Reticulocyte % (Auto) Immature Gran # (Auto) Neut # (Auto) Lymph # (Auto) Doddridge # (Auto) Eos # (Auto) Baso # (Auto) Reticulocyte # Absolute Nucleated RBC Nucleated RBC % (auto) Platelet Estimate RBC Morphology Basophilic Stippling Immature Retic Fraction Retic Hgb Content PT 11.5 INR 1.1 APTT 25.7 PTT Ratio 0.9 Sample Site POC pH POC pCO2 POC pO2 POC HCO3 POC Total CO2 POC Base Excess ABG pH (Temp Correct) ABG pCO2 (Temp Corrct POC ABG pO2 at Pt Temp POC ABG O2 Sat Henrique Test VBG pH VBG pCO2 VBG pO2 VBG HCO3 VBG O2 Saturation VBG Base Excess Barometric Pressure O2 Delivery Device Sodium 139 Potassium 6.1 H* Chloride 109 H Carbon Dioxide 13 L Anion Gap 18.0 H BUN 152 H Creatinine 21.50 H* Est Cr Clr Drug Dosing 2.9 Est GFR ( Amer) 2.1 Est GFR (Non-Af Amer) 1.8 BUN/Creatinine Ratio 7.1 L Glucose 148 H POC Glucose Lactate 1.7 Calcium 8.0 L Ionized Calcium Phosphorus 8.7 H Magnesium 3.4 H Total Bilirubin 0.5 Direct Bilirubin 0.1 AST 6 L ALT 11 L Alkaline Phosphatase 75 Troponin I < 0.015 Total Protein 7.1 Albumin 3.2 L Lipase 1634 H Prostate Specific Ag 21.700 H Procalcitonin Nasal Screen MRSA (PCR) Stool Occult Bld Scrn Hepatitis C Ab Screen Blood Type Blood Type Recheck Antibody Screen Crossmatch 01/08/19 01/08/19 01/08/19 23:34 23:34 23:34 WBC RBC Hgb Hct MCV MCH MCHC RDW Std Deviation RDW Coeff of Yessy Plt Count MPV Immature Gran % (Auto) Neut % (Auto) Lymph % (Auto) Doddridge % (Auto) Eos % (Auto) Baso % (Auto) Reticulocyte % (Auto) Immature Gran # (Auto) Neut # (Auto) Lymph # (Auto) Doddridge # (Auto) Eos # (Auto) Baso # (Auto) Reticulocyte # Absolute Nucleated RBC Nucleated RBC % (auto) Platelet Estimate RBC Morphology Basophilic Stippling Immature Retic Fraction Retic Hgb Content PT INR APTT PTT Ratio Sample Site POC pH POC pCO2 POC pO2 POC HCO3 POC Total CO2 POC Base Excess ABG pH (Temp Correct) ABG pCO2 (Temp Corrct POC ABG pO2 at Pt Temp POC ABG O2 Sat Henrique Test VBG pH VBG pCO2 VBG pO2 VBG HCO3 VBG O2 Saturation VBG Base Excess Barometric Pressure O2 Delivery Device Sodium Potassium Chloride Carbon Dioxide Anion Gap BUN Creatinine Est Cr Clr Drug Dosing Est GFR ( Amer) Est GFR (Non-Af Amer) BUN/Creatinine Ratio Glucose POC Glucose Lactate Calcium Ionized Calcium 1.03 L Phosphorus Magnesium Total Bilirubin Direct Bilirubin AST ALT Alkaline Phosphatase Troponin I Total Protein Albumin Lipase Prostate Specific Ag Procalcitonin 0.23 Nasal Screen MRSA (PCR) Stool Occult Bld Scrn Hepatitis C Ab Screen Blood Type O Negative Blood Type Recheck Antibody Screen NEGATIVE Crossmatch See Detail 01/08/19 01/09/19 01/09/19 23:39 00:59 01:00 WBC RBC Hgb Hct MCV MCH MCHC RDW Std Deviation RDW Coeff of Yessy Plt Count MPV Immature Gran % (Auto) Neut % (Auto) Lymph % (Auto) Doddridge % (Auto) Eos % (Auto) Baso % (Auto) Reticulocyte % (Auto) Immature Gran # (Auto) Neut # (Auto) Lymph # (Auto) Doddridge # (Auto) Eos # (Auto) Baso # (Auto) Reticulocyte # Absolute Nucleated RBC Nucleated RBC % (auto) Platelet Estimate RBC Morphology Basophilic Stippling Immature Retic Fraction Retic Hgb Content PT INR APTT PTT Ratio Sample Site R Radial POC pH 7.24 L POC pCO2 23 L POC pO2 117 H POC HCO3 10 L POC Total CO2 11 L POC Base Excess -17.0 L ABG pH (Temp Correct) 7.248 L ABG pCO2 (Temp Corrct 23 L POC ABG pO2 at Pt Temp 115 POC ABG O2 Sat 98.0 H Henrique Test Pass VBG pH VBG pCO2 VBG pO2 VBG HCO3 VBG O2 Saturation VBG Base Excess Barometric Pressure O2 Delivery Device Room Air Sodium Potassium Chloride Carbon Dioxide Anion Gap BUN Creatinine Est Cr Clr Drug Dosing Est GFR ( Amer) Est GFR (Non-Af Amer) BUN/Creatinine Ratio Glucose POC Glucose Lactate Calcium Ionized Calcium Phosphorus Magnesium Total Bilirubin Direct Bilirubin AST ALT Alkaline Phosphatase Troponin I Total Protein Albumin Lipase Prostate Specific Ag Procalcitonin Nasal Screen MRSA (PCR) Stool Occult Bld Scrn Negative Hepatitis C Ab Screen Blood Type Blood Type Recheck O Negative Antibody Screen Crossmatch 01/09/19 01/09/19 01/09/19 01:57 01:57 06:25 WBC 9.72 RBC 2.91 L Hgb 5.8 L* 8.8 L D Hct 17.2 L* 25.4 L MCV 87.3 MCH 30.2 MCHC 34.6 RDW Std Deviation 45.5 RDW Coeff of Yessy 14.2 Plt Count 99 L MPV 11.2 H Immature Gran % (Auto) 0.2 Neut % (Auto) 90.1 Lymph % (Auto) 4.8 Doddridge % (Auto) 4.8 Eos % (Auto) 0.0 Baso % (Auto) 0.1 Reticulocyte % (Auto) Immature Gran # (Auto) 0.02 Neut # (Auto) 8.75 H Lymph # (Auto) 0.47 L Doddridge # (Auto) 0.47 Eos # (Auto) 0.00 Baso # (Auto) 0.01 Reticulocyte # Absolute Nucleated RBC Nucleated RBC % (auto) Platelet Estimate Decreased L RBC Morphology Basophilic Stippling 1+ Immature Retic Fraction Retic Hgb Content PT INR APTT PTT Ratio Sample Site POC pH POC pCO2 POC pO2 POC HCO3 POC Total CO2 POC Base Excess ABG pH (Temp Correct) ABG pCO2 (Temp Corrct POC ABG pO2 at Pt Temp POC ABG O2 Sat Henrique Test VBG pH VBG pCO2 VBG pO2 VBG HCO3 VBG O2 Saturation VBG Base Excess Barometric Pressure O2 Delivery Device Sodium 138 Potassium 6.1 H* Chloride 108 H Carbon Dioxide 14 L Anion Gap 17.0 H BUN 159 H Creatinine 21.60 H* Est Cr Clr Drug Dosing 2.9 Est GFR ( Amer) 2.1 Est GFR (Non-Af Amer) 1.8 BUN/Creatinine Ratio 7.4 L Glucose 261 H POC Glucose Lactate Calcium 7.9 L Ionized Calcium Phosphorus 8.4 H Magnesium 3.3 H Total Bilirubin Direct Bilirubin AST ALT Alkaline Phosphatase Troponin I Total Protein Albumin Lipase Prostate Specific Ag Procalcitonin Nasal Screen MRSA (PCR) Stool Occult Bld Scrn Hepatitis C Ab Screen Blood Type Blood Type Recheck Antibody Screen Crossmatch 01/09/19 01/09/19 01/09/19 06:25 06:25 06:25 WBC RBC Hgb Hct MCV MCH MCHC RDW Std Deviation RDW Coeff of Yessy Plt Count MPV Immature Gran % (Auto) Neut % (Auto) Lymph % (Auto) Doddridge % (Auto) Eos % (Auto) Baso % (Auto) Reticulocyte % (Auto) Immature Gran # (Auto) Neut # (Auto) Lymph # (Auto) Doddridge # (Auto) Eos # (Auto) Baso # (Auto) Reticulocyte # Absolute Nucleated RBC Nucleated RBC % (auto) Platelet Estimate RBC Morphology Basophilic Stippling Immature Retic Fraction Retic Hgb Content PT INR APTT PTT Ratio Sample Site POC pH POC pCO2 POC pO2 POC HCO3 POC Total CO2 POC Base Excess ABG pH (Temp Correct) ABG pCO2 (Temp Corrct POC ABG pO2 at Pt Temp POC ABG O2 Sat Henrique Test VBG pH Cancelled VBG pCO2 Cancelled VBG pO2 Cancelled VBG HCO3 Cancelled VBG O2 Saturation Cancelled VBG Base Excess Cancelled Barometric Pressure Cancelled O2 Delivery Device Sodium 139 Potassium 6.0 H Chloride 105 Carbon Dioxide 19 L Anion Gap 15.0 H BUN 142 H Creatinine 19.90 H* D Est Cr Clr Drug Dosing 3.1 Est GFR ( Amer) 2.3 Est GFR (Non-Af Amer) 2.0 BUN/Creatinine Ratio 7.2 L Glucose 210 H POC Glucose Lactate Calcium 8.0 L Ionized Calcium 0.95 L Phosphorus 8.4 H Magnesium 3.3 H Total Bilirubin Direct Bilirubin AST ALT Alkaline Phosphatase Troponin I 0.079 H* Total Protein Albumin Lipase Prostate Specific Ag Procalcitonin Nasal Screen MRSA (PCR) Stool Occult Bld Scrn Hepatitis C Ab Screen Blood Type Blood Type Recheck Antibody Screen Crossmatch 01/09/19 01/09/19 01/09/19 06:25 06:25 07:38 WBC RBC Hgb Hct MCV MCH MCHC RDW Std Deviation RDW Coeff of Yessy Plt Count MPV Immature Gran % (Auto) Neut % (Auto) Lymph % (Auto) Doddridge % (Auto) Eos % (Auto) Baso % (Auto) Reticulocyte % (Auto) Immature Gran # (Auto) Neut # (Auto) Lymph # (Auto) Doddridge # (Auto) Eos # (Auto) Baso # (Auto) Reticulocyte # Absolute Nucleated RBC Nucleated RBC % (auto) Platelet Estimate RBC Morphology Basophilic Stippling Immature Retic Fraction Retic Hgb Content PT 11.5 INR 1.1 APTT PTT Ratio Sample Site POC pH POC pCO2 POC pO2 POC HCO3 POC Total CO2 POC Base Excess ABG pH (Temp Correct) ABG pCO2 (Temp Corrct POC ABG pO2 at Pt Temp POC ABG O2 Sat Henrique Test VBG pH 7.40 VBG pCO2 32 L VBG pO2 30 VBG HCO3 19 VBG O2 Saturation < 60.0 VBG Base Excess -4.9 Barometric Pressure 733.3 O2 Delivery Device Sodium Potassium Chloride Carbon Dioxide Anion Gap BUN Creatinine Est Cr Clr Drug Dosing Est GFR ( Amer) Est GFR (Non-Af Amer) BUN/Creatinine Ratio Glucose POC Glucose Lactate 1.4 Calcium Ionized Calcium Phosphorus Magnesium Total Bilirubin Direct Bilirubin AST ALT Alkaline Phosphatase Troponin I Total Protein Albumin Lipase Prostate Specific Ag Procalcitonin Nasal Screen MRSA (PCR) Stool Occult Bld Scrn Hepatitis C Ab Screen Blood Type Blood Type Recheck Antibody Screen Crossmatch 01/09/19 08:13 WBC RBC Hgb Hct MCV MCH MCHC RDW Std Deviation RDW Coeff of Yessy Plt Count MPV Immature Gran % (Auto) Neut % (Auto) Lymph % (Auto) Doddridge % (Auto) Eos % (Auto) Baso % (Auto) Reticulocyte % (Auto) Immature Gran # (Auto) Neut # (Auto) Lymph # (Auto) Doddridge # (Auto) Eos # (Auto) Baso # (Auto) Reticulocyte # Absolute Nucleated RBC Nucleated RBC % (auto) Platelet Estimate RBC Morphology Basophilic Stippling Immature Retic Fraction Retic Hgb Content PT INR APTT PTT Ratio Sample Site POC pH POC pCO2 POC pO2 POC HCO3 POC Total CO2 POC Base Excess ABG pH (Temp Correct) ABG pCO2 (Temp Corrct POC ABG pO2 at Pt Temp POC ABG O2 Sat Henrique Test VBG pH VBG pCO2 VBG pO2 VBG HCO3 VBG O2 Saturation VBG Base Excess Barometric Pressure O2 Delivery Device Sodium Potassium Chloride Carbon Dioxide Anion Gap BUN Creatinine Est Cr Clr Drug Dosing Est GFR ( Amer) Est GFR (Non-Af Amer) BUN/Creatinine Ratio Glucose POC Glucose 226 H Lactate Calcium Ionized Calcium Phosphorus Magnesium Total Bilirubin Direct Bilirubin AST ALT Alkaline Phosphatase Troponin I Total Protein Albumin Lipase Prostate Specific Ag Procalcitonin Nasal Screen MRSA (PCR) Stool Occult Bld Scrn Hepatitis C Ab Screen Blood Type Blood Type Recheck Antibody Screen Crossmatch
[2019-01-09] MEDS ORDERED: SODIUM CHLORIDE 0.9% 1000ML 1,000 ML IV PRN (09:53)
--- NOTE | 2019-01-09 09:56 | Ultrasound Report ---
US renal/blad retro comp CLINICAL HISTORY: 73 years-old Male presenting with obstructive uropathy. kidney stones. TECHNIQUE: Real-time grayscale and limited color Doppler ultrasound imaging of the kidneys and bladde r was performed. COMPARISON: Outside CT of the abdomen and pelvis from 01/08/2019. FINDINGS: Right kidney: Increased echogenicity of renal parenchyma with decreased corticomedullary differentiat ion. Right kidney measures 2 cm. Severe hydronephrosis distention proximal right ureter. 5 mm hyperec hogenic focus with tingling artifact at the upper pole, likely correlating with the known calculi rosmery dent on recent CT. Exophytic 5.3 cm cyst also noted. Left kidney: Increased echogenicity of renal parenchyma with decreased corticomedullary differentiati on. Left kidney measures 13.3 cm. Severe hydronephrosis with distention of the proximal left ureter. Small exophytic cysts noted. Bladder: Distended bladder lumen. A large heterogeneously hyperechoic mass is noted within the bladde r lumen measuring 16.6 x 9.8 x 14.6 cm. This is avascular on color Doppler and was not evident on CT. The Zuñiga catheter balloon is located within the apparent mass. There is a separate polypoid isoecho ic lesion more inferiorly measuring 4.6 x 4.4 cm. Bilateral ureteral jets not visualized. Other: None. IMPRESSION: 1. Severe bilateral hydroureteronephrosis. 2. Large bladder mass or pseudomass. As this was not seen on CT, neoplasm is considered less likely though not excluded. This could alternatively represent a hematoma or ball of infectious debris. Sammy tional polypoid focus in the bladder lumen is also indeterminate. Urologic consultation for cystoscop y recommended. 3. Distended urinary bladder. It is uncertain if the Zuñiga catheter is appropriately draining the bl adder as it is contained within the large mass. Electronically signed by: Brando Walters M.D. 01/09/2019 9:55 AM
--- NOTE | 2019-01-09 10:28 | Procedure Note ---
Procedure Note Date of Service January 09, 2019 Note INTERNAL JUGULAR CENTRAL LINE PROCEDURE NOTE: Hemodialysis catheter Procedure: Internal Jugular hemodialysis catheter placement Attending: Dr. Sumit Valentin Provider: NADIA Sherwood Indication: Hemodialysis Anesthesia:Lidocaine 1% Consent was signed and placed on the chart prior to procedure. Indication, risks, and benefits were explained at length. A time-out was completed verifying correct patient, procedure, site, posit ioning, and implants(s) or special equipment if applicable. Patients left neck was cleansed and draped in the typical sterile fashion using Chloraprep. The Internal Jugular Vein and Carotid Artery were identified using ultrasound. The superficial tissue was anesthetized using 3 mL of 1% lidocaine without epinephrine under direct visualization with the ultrasound. After adequate anesthetization was achieved, the Internal Jugular vein was cannulated under direct ultrasound guidance using an introducer needle on a syringe. Good venous blood return was maintained prior to removal of syringe from introducer needle. Using Seldinger Technique, a guide wire was advanced through the introducer needle without resistance. The introducer needle was removed and ultrasound images were obtained of the guide wire within the Internal Jugular Vein and saved to the patients medical record. A small incision was made in penetrating fashion at the guide wire insertion site utilizing an 11 blade scalpel. The dilator was advanced to the vessel without resistance. The dilator was exchanged for the triple lumen catheter which was advanced into the vessel without resistance. The guide wire was removed intact from the catheter without issue. Caps were placed on each catheter tip with confirmation of good blood flow from each lumen. Each port was easily flushed with sterile saline. The catheter was placed at 15 cm and sutured in place. BioPatch was applied to the catheter and a sterile Tegaderm dressing was applied over the catheter with careful attention to sterility. Patient tolerated procedure well. No immediate complications were met. Post procedure x-ray was completed, placement was appropriate and no pneumothorax was noted. Images obtained are saved for permanent record Procedural Ultrasound Guidance: Procedure Date: 01/09/2019 Indication: HD cath insertion for hemodialysis Attending: Dr. Sumit Valentin Provider: NADIA Sherwood Artery AND Vein visualized: Yes Compressible Vein: Yes Guidewire or Short Catheter seen in vein prior to dilation: Yes Line confirmed in Vein with ultrasound: Yes Images obtained are saved for permanent record. Supervising Physician Co-Signing Physician Notes I was present and assisted during the entire procedure Coding CPT Codes Tubes, Drains, and Vasc Access - Tubes, Drains, and Vasc Access: Insertion of cannula for hemodialysis ([id number]) Tubes, Drains, and Vasc Access - Tubes, Drains, and Vasc Access: Ultrasound Guidance For Vascular ([id number])
[2019-01-09] MEDS ORDERED: DEXTROSE 50% 50 ML SYRINGE IV PRN (10:30)
[2019-01-09] MEDS ORDERED: GLUCOSE 40% GEL 15 GM TUBE PO PRN (10:30)
[2019-01-09] MEDS ORDERED: GLUCOSE 10 TABS/TUBE PO PRN (10:30)
[2019-01-09] MEDS ORDERED: CARBOHYDRATES FOR HYPOGLYCEMIA PO PRN (10:30)
[2019-01-09] MEDS ORDERED: GLUCAGON FOR INJ 1 MG VIAL SQ PRN (10:30)
--- NOTE | 2019-01-09 10:36 | XRay Report ---
XR chest 1V portable CLINICAL HISTORY: 73 years-old Male presenting with lines. TECHNIQUE: Portable upright AP view of the chest was obtained. COMPARISON: 01/09/2019 at 6:38 AM. FINDINGS: Left internal jugular central venous catheter terminates in the upper SVC with a transverse orientati on of the terminus, new from prior. Cardiomediastinal silhouette normal. No focal opacity. No large e ffusion or pneumothorax. Osseous structures normal. Hyperdense material projects over the epigastrium likely oral contrast within the bowel. IMPRESSION: 1. Interval placement of a left IJ catheter with acceptable positioning. 2. No evidence of a pneumothorax allowing for portable technique. Electronically signed by: Brando Walters M.D. 01/09/2019 10:35 AM
[2019-01-09 10:57] LABS: Base Excess VBG -1.8 mEq/L; HCO3 VBG 22 mmol/L; PCO2 VBG 36 mmHg (38-50); PO2 VBG 26 mmHg; pH VBG 7.42 (7.36-7.41)
[2019-01-09 10:58] LABS: Hematocrit (blood only) 19.9 % (42-52)
[2019-01-09 11:06] LABS: Oxygen Saturation VBG < 60.0 %
[2019-01-09 11:15] LABS: Iron 53 mcg/dl (35-175); Transferrin 133 mg/dl (200-360); Transferrin Percent Saturation 28 % (20-50)
[2019-01-09] MEDS: CALCIUM ACETATE 667 MG CAP PO SCH ×2 (11:22→18:10)
[2019-01-09] MEDS: INSULIN ASPART 100 UNITS/ML 3 ML PEN SC SCH ×4 (11:30→21:20)
[2019-01-09 11:33] LABS: BUN Creatinine Ratio 7.2 (10-20); Calcium 7.9 mg/dl (8.5-10.1); Creatinine Clr Calc Pharmacy 3.2 ml/min; Est GFR (African American) 2.4; Est GFR (Non-African American) 2.1; Hepatitis B Surface Antibody Immune; Magnesium 3.1 mg/dl (1.8-2.4); Phosphorus 8.6 mg/dl (2.5-4.9); Potassium 5.1 mmol/L (3.5-5.1); Vitamin D, 25 Hydrox 42.1 ng/ml (30-100)
[2019-01-09 11:44] LABS: Hepatitis B Surface Antigen Neg (Neg)
[2019-01-09 12:40] LABS: BUN Creatinine Ratio 7.3 (10-20); Calcium 7.9 mg/dl (8.5-10.1); Creatinine Clr Calc Pharmacy 3.2 ml/min; Est GFR (African American) 2.4; Est GFR (Non-African American) 2.1; Potassium 4.6 mmol/L (3.5-5.1); Troponin I 0.076 ng/ml (0-0.045)
[2019-01-09 14:16] LABS: HCO3 VBG 27 mmol/L; PCO2 VBG 39 mmHg (38-50); PO2 VBG 29 mmHg; pH VBG 7.46 (7.36-7.41)
[2019-01-09 14:22] LABS: Oxygen Saturation VBG < 60.0 %
[2019-01-09 14:36] LABS: Magnesium 2.5 mg/dl (1.8-2.4); Phosphorus 5.2 mg/dl (2.5-4.9); Potassium 3.3 mmol/L (3.5-5.1)
[2019-01-09] MEDS ORDERED: PNEUMOCOCCAL ADMINISTRATION CHARGE ONE (16:15)
[2019-01-09] MEDS ORDERED: PNEUMOCOCCAL POLYSACCHARIDES 25 MCG/0.5 ML VIAL/SYR IM ONE (16:15)
[2019-01-09] MEDS ORDERED: fentaNYL citrate 100 MCG/2 ML VIAL ONE (16:28)
[2019-01-09] MEDS ORDERED: fentaNYL citrate 100 MCG/2 ML VIAL IV STA (16:57)
[2019-01-09 18:58] LABS: Base Excess VBG 4.4 mEq/L; pH VBG 7.48 (7.36-7.41)
[2019-01-09 19:17] LABS: Magnesium 2.7 mg/dl (1.8-2.4); Phosphorus 7.5 mg/dl (2.5-4.9)
[2019-01-09 19:24] LABS: BUN Creatinine Ratio 6.9 (10-20); Calcium 7.5 mg/dl (8.5-10.1); Creatinine Clr Calc Pharmacy 4.3 ml/min; Est GFR (African American) 3.4; Potassium 4.2 mmol/L (3.5-5.1)
[2019-01-09 19:50] LABS: Hematocrit (blood only) 18.6 % (42-52); Hemoglobin 6.6 g/dL (14.0-18.0); Mean Corpuscular Hgb Conc 35.5 g/dL (32-36); Mean Corpuscular Volume 84.9 fL (80-100); Mean Platelet Volume 11.1 fL (7.4-10.4); Platelet Count 77 K/uL (130-400); RDW Coefficient of Variation 14.3 % (11.5-14.5); RDW Standard Deviation 44.3 fL (36.4-46.3); Red Blood Count 2.19 M/uL (4.7-6.1); White Blood Count 7.41 K/uL (4.8-10.8)
[2019-01-09 19:54] LABS: Giant Platelets 1+; Immature Granulocytes # (auto) 0.01 K/uL (0.00-0.02); Immature Granulocytes % (auto) 0.1 %; Lymphocytes # (auto) 0.36 K/uL (1.2-3.4); Lymphocytes % (auto) 4.9 %; Monocytes # (auto) 0.39 K/uL (0.11-0.59); Monocytes % (auto) 5.3 %; Neutrophils # (auto) 6.65 K/uL (1.4-6.5); Neutrophils % (auto) 89.7 %
[2019-01-09 22:09] LABS: Base Excess VBG 5.9 mEq/L; Oxygen Saturation VBG 65.3 %; pH VBG 7.49 (7.36-7.41)
[2019-01-09 22:22] LABS: Magnesium 2.6 mg/dl (1.8-2.4)
[2019-01-09 23:24] LABS: Hematocrit (blood only) 21.9 % (42-52); Hemoglobin 7.8 g/dL (14.0-18.0)
[2019-01-10 03:49] LABS: Hematocrit (blood only) 20.8 % (42-52); Hemoglobin 7.4 g/dL (14.0-18.0); Mean Corpuscular Hgb Conc 35.6 g/dL (32-36); Mean Corpuscular Volume 85.2 fL (80-100); Mean Platelet Volume 11.3 fL (7.4-10.4); Platelet Count 76 K/uL (130-400); RDW Coefficient of Variation 14.1 % (11.5-14.5); Red Blood Count 2.44 M/uL (4.7-6.1); White Blood Count 8.49 K/uL (4.8-10.8)
[2019-01-10 03:59] LABS: Eosinophils # (auto) 0.01 K/uL (0-0.5); Eosinophils % (auto) 0.1 %; Immature Granulocytes # (auto) 0.02 K/uL (0.00-0.02); Immature Granulocytes % (auto) 0.2 %; Lymphocytes # (auto) 0.82 K/uL (1.2-3.4); Lymphocytes % (auto) 9.7 %; Monocytes % (auto) 8.2 %; Neutrophils # (auto) 6.94 K/uL (1.4-6.5); Neutrophils % (auto) 81.8 %; RBC Morphology Unremarkable
[2019-01-10 04:08] LABS: Alanine Aminotransferase 8 U/L (12-78); Albumin Level 2.7 gm/dl (3.4-5.0); Alkaline Phosphatase 55 U/L (45-117); Aspartate Aminotransferase 7 U/L (15-37); Bilirubin Direct < 0.1 mg/dl (0-0.2); Bilirubin,Total 0.4 mg/dl (0.2-1); Blood Urea Nitrogen 103 mg/dl (7-18); Calcium 7.3 mg/dl (8.5-10.1); Carbon Dioxide 35 mmol/L (21-32); Chloride 94 mmol/L (98-107); Creatinine Clr Calc Pharmacy 4.3 ml/min; Est GFR (African American) 3.4; Glucose 141 mg/dl (70-99); Magnesium 2.6 mg/dl (1.8-2.4); Phosphorus 8.7 mg/dl (2.5-4.9); Potassium 4.1 mmol/L (3.5-5.1); Sodium 137 mmol/L (136-145); Total Protein 5.3 gm/dl (6.4-8.2)
--- NOTE | 2019-01-10 05:45 | Critical Care Progress Note ---
Date of Service January 10, 2019 Assessment & Plan (1) Obstructive and reflux uropathy: Reason Critically Ill: 73-year-old male who presented to OSH with weakness and abdominal distension and was found to have a Cr>21.5 & BUN >180, had 3L of fluid expressed following Christopher cath at OSH, and who was transferred here for further care and whose course was complicated by acute anemia with sanginous/serosanginous output into his christopher catheter. Neuro - [facility]: NEGATIVE No pain at time of exam. Fentanyl 50-100mcg PRN for pain if needed Cardiac - History of syncopal episode - Single episode lasting a few seconds prior to admission and without seizure activity, hypotension, or EKG change but with nausea and diaphoresis. - Trop I peaked at 0.079 and down trended on 01/09/2019 - EKG nsr without ST depression/elevation or T wave inversions. - Monitor on tele Respiratory - - No history of pulmonary disease - Lungs clear to auscultation, no congestion on CXR. - At risk for TACO/TRALI given xfusions GI - Renal diet, poor appetite today nutrition consulted Discontinue famotidine 20 mg IV Reported BRBPR, hemoccult negative RENAL/LYTES - Acute Renal Failure 2/2 Obstructive Uropathy - Admission cr 21.5 with BUN 180, no known prior renal disease -3 L bladder irrigation over 24 hours, draining lightly sanguinous urine. Increase irrigation flow rate given residual clot on bedside ultrasound. - Urology, nephrology following. Appreciate recommendations. - L Jugular dialysis access line placed, scheduled for second round of dialysis today. His electrolytes and creatinine have not worsened in the interval since last hemodialysis, suggesting improving/present renal function. Creatinine stable at 14.5. Metabolic Acidosis 2/2 Acute Renal Failure -Discontinued bicarb IV - BMP Q8H - Dialysis per nephrology Hyperkalemia 2/2 ARF & metabolic acidosis Normalized to 4.1 today, no interval worsening since last dialysis - s/p insulin, dextrose, calcium, bicarb tx Continue BMP as above - Pending dialysis tx - Obstructive Uropathy 2/2 Prostatomegaly vs Nephrolithiasis - PSA 21, consistent with observed prostatomegaly -Bladder clot irrigated yesterday, triple-lumen with continuous irrigation placed. Residual clot noted on exam this morning, irrigation flow rate increas ed. Acute blood loss anemia 2/2 hematuria with suspected bladder diffuse capillary injury - Continue to follow - Clot management as noted above Hemoglobin stable this morning, transfusion threshold 7.0 Epo discussed with nephrology, they would not administer Procrit at this time given his prostatomegaly and increased PSA without biopsy/definitive work-up. They expressed concern for worsening of any underlying prostate cancer. Recommended further evaluation by urology prior to any administration. ENDO - Insulin aspart SSI Adequate glycemic control today HEME - - Hgb 7.2 from 7.4 this morning, 7.8 following 1 unit RBC yesterday. Platelets 76K following dialysis - Hematuria with clot present as noted above Transfuse 1 unit packed red blood cells, 1 unit platelets this morning - CBC Q8H ID - No concerns for infection at this point. Monitor fever curve. INTEGUMENTARY - No acute concerns LINES/IV ACCESS - PIVs intact. Left dual-lumen jugular HD central catheter in place DVT PROPHYLAXIS - Heparin 5,000u SQ BID Thank you for allowing us to be part of this patient's care. Please refer to Dr. Valentin's documentation for any further recommendations. Supervising Physician Co-Signing Physician Notes Dr. Mcghee was resident physician during care of patient. I separately evaluated patient for burnett portions of the history and the exam. I was present during the critical portion of medical decision making, and I discussed the case with the resident. I generally agree with the findings and plan. Urine continues to clear, his creatinine has not increased in approximately 10 hours from dialysis site just that he is actually producing urine. They are planning another 2-hour run of dialysis today. He has started to eat a little bit. We will discontinue additional IV fluids and I discussed Procrit with nephrology they would wait until there are records regarding possible prostate cancer evaluation. He will receive 1 unit of packed red blood cells 1 unit of platelets today for ongoing blood loss presumptive oozing from the bladder. I have personally spent 40 minutes of critical care time in the direct management of this patient. This is a life/limb threatening event. This includes time spent evaluating patient, direct bedside care, chart review, placing orders, interpretation of diagnostic studies, discussion with consultants, patient, and/or family members regarding treatment decisions, as well as other required patient management activities. This time is exclusive of all separately billable procedures, and teaching time and separate from and in addition to any other critical care service time. Subjective Serafin reports he feels fatigued today. He feels like his abdomen is continued to feel swollen. He reports he was very worn down yesterday after pain at his catheter during dialysis, back pain during dialysis, and from having his bladder irrigated. He is not in pain this morning, and is not nauseous although he notes intermittent hiccups and a overall poor appetite. He has tried to force himself to eat a little bit of eggs and toast. Denies current abdominal pain, pain at Christopher catheter, pain at his left hemodialysis catheter site. Denies fever, chills, sweats. Denies chest pain, chest pressure, palpitations. No lightheadedness, syncope, presyncope. He is concerned about pain during dialysis today, and will use the call zazueta if he experiences any tugging or pain at his catheter site. No other questions or concerns at this time. Per signout he received 1 unit of red blood cells at 2200 last night, hemoglobin recheck overnight stable. Review of Systems Review of Systems: Constitutional: Denies fever, chills. Endorses fatigue. Eyes: Denies double vision, vision change, eye pain ENT: Denies ear pain, sore throat, sinus pain Cardiovascular: Denies chest pain, chest pressure, palpitations Respiratory: Denies shortness of breath, sputum production, difficulty breathing. Endorses mild cough this morning. Gastrointestinal: Denies abdominal pain, nausea, vomiting, constipation, diarrhea. Endorses a feeling of abdominal fullness, without pain today. Endorses decreased/poor appetite. Genitourinary: Denies pain with urination. Christopher in place. No pain at Christopher site. Musculoskeletal: Denies endorses global weakness without focal weakness, muscle aches/pain, joint aches/pain Integumentary:Denies rash, lesions, bruising Neurological: Denies headache, numbness, tingling, focal weakness Physical Exam Physical Exam: General: A&Ox3. NAD. Cooperative. Answers questions appropriately. Thought process linear, goal directed. HEENT: Atraumatic, normocephalic. PERLAA. EoM intact without nystagmus. No scleral icterus. Pulm: CTAB A&P. -wheezes, -rales, -rhonchi. Symmetrical chest rise. No increase work of breathing. No respiratory distress. Cardiac: RRR, -mrg. Radial pulses intact and symmetrical. Abdominal: Firm low central abdominal distension. Nontender. BS present. No CVA tenderness. Bedside ultrasound performed and shows small heterogenous area consistent with intracystic clot improved from prior. Irrigation flow into bladder cavity observed on Doppler. : Triple-lumen Christopher in place, irrigation running, with serosanguinous urine in catheter bag. Ext: Mild asterixis. No distal extremity edema. 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 Results & Data Vital Signs (Past 12 Hours) Vital Signs Temp Pulse Resp BP Pulse Ox 01/10/19 05:00 70 17 136/67 94 01/10/19 04:00 36.9 C 67 15 141/74 H 96 01/10/19 03:00 72 16 141/67 H 97 01/10/19 02:00 69 17 125/60 94 01/10/19 01:00 70 14 139/98 97 01/10/19 00:00 36.5 C 77 16 134/84 94 01/09/19 23:00 75 16 159/78 H 97 01/09/19 22:05 36.7 C 74 20 102/89 97 01/09/19 22:00 36.6 C 71 16 164/82 H 97 01/09/19 21:21 36.5 C 76 20 144/85 H 100 01/09/19 20:51 36.6 C 75 20 144/85 H 98 01/09/19 20:36 36.7 C 78 16 148/87 H 100 01/09/19 20:18 36.6 C 81 20 142/93 H 100 01/09/19 20:00 36.6 C 82 14 138/80 99 01/09/19 19:00 77 15 104/62 97 01/09/19 18:00 80 11 L 132/65 97 PG Care Time/CCT Total # of Minutes Spent Total Time Spent with Patient: Total time spent is greater than 50% in coordination of care (as documented) at patient's floor/unit and/or counseling patient: Resident Activity Tracking Resident Involvement: Resident Care Provided Care Provided: Adult [facility]
[2019-01-10 06:00] LABS: Estimated Average Glucose 111 mg/dl; Hemoglobin A1C 5.5 % (4.5-5.6)
[2019-01-10] MEDS ORDERED: SODIUM CHLORIDE 0.9% 1000ML 1,000 ML IV SCH (06:30)
[2019-01-10] MEDS: CALCIUM ACETATE 667 MG CAP PO SCH ×3 (07:45→17:15)
[2019-01-10] MEDS: HEPARIN SOD 5,000 UNIT/0.5 ML VIAL SQ SCH ×2 (07:45→21:39)
[2019-01-10] MEDS: FAMOTIDINE 20 MG in SYRINGE 3 ML IV SCH (07:47)
[2019-01-10] MEDS: INSULIN ASPART 100 UNITS/ML 3 ML PEN SC SCH ×4 (07:58→21:39)
[2019-01-10 08:12] LABS: Hematocrit (blood only) 20.4 % (42-52); Hemoglobin 7.2 g/dL (14.0-18.0)
[2019-01-10] MEDS ORDERED: SODIUM CHLORIDE 0.9% 250 ML IV PRN ×2 (08:15→08:27)
[2019-01-10] MEDS ORDERED: SENNA 8.6 MG TAB PO PRN (08:50)
[2019-01-10] MEDS ORDERED: SODIUM CHLORIDE 0.9% 1000ML 1,000 ML IV PRN (09:08)
[2019-01-10] MEDS: BISACODYL 5 MG TABEC PO PRN (09:09)
[2019-01-10] MEDS: POLYETHYLENE (MIRALAX) 17 GM PACK PO PRN (09:09)
[2019-01-10 10:24] LABS: Reticulocyte % 1.1 % (0.5-2.0); Reticulocytes # 0.03 10^6/uL (0.02-0.10)
--- NOTE | 2019-01-10 11:39 | Urology Progress Note ---
Date of Service January 10, 2019 Assessment & Plan (1) Hematuria: 73yo M with obstructive uropathy, severe bilateral hydroureteronephrosis, MACI, anemia Continue CBI, titrate to light pink. Hand irrigate PRN for clots. Will continue to monitor H/H after transfusions. We will continue to follow with primary service. Subjective 73yo M with obstructive uropathy, severe bilateral hydroureteronephrosis, MACI, anemia Last evening approx 5PM, pt was re-evaluated by Dr. Cross due to blocked catheter. Zuñiga changed to 20fr, irrigated for copious amount of clot then converted to 24fr hematuria 3-way catheter with CBI. Per nursing pt did not require hand irrigation overnight, and once on dayshift for small clot. CBI running at moderate drip rate to keep to light pink, clear. I performed additional hand irrigation at bedside with 180cc sterile water, with light red return, no clots. Pt tolerated well. Emergent HD initiated yesterday. Pt has received multiple blood products as well. Pt states he feels better today than yesterday. Spirits are low, but he is understanding of his current situation. Review of Systems Review of Systems: All systems reviewed & are unremarkable except as noted in HPI & below Physical Exam Constitutional: no acute distress and not ill appearing Eyes: no nystagmus ENMT: Ears: no hearing impairment Neck: trachea midline Respiratory: no respiratory distress and no cough Cardiovascular: Vessels: no JVD Chest (Breasts): Chest: normal inspection of chest Gastrointestinal (Abdomen): Inspection/Auscultation: abdomen not distended and no abdominal edema Percussion/Palpation: abdomen soft; abdomen nontender Musculoskeletal: Head/Neck/Chest: normocephalic and head atraumatic Skin: no rashes, warm and dry Neurologic: awake; not confused and not obtunded Psychiatric: Orientation: alert and oriented x 3 Eye Contact: good eye contact Affect: no depressed affect Genitourinary: bladder normal to inspection; no CVA tenderness 24fr 3-way hematuria catheter intact, CBI draining light pink Lymphatic: no lymphadenopathy and no lymphedema Results & Data Vital Signs (Past 12 Hours) Vital Signs Temp Pulse Pulse Resp BP Pulse Ox 01/10/19 11:30 82 136/83 01/10/19 11:25 36.9 C 83 14 136/83 98 01/10/19 11:15 79 155/93 H 01/10/19 11:00 76 164/76 H 01/10/19 10:55 37.1 C 79 21 164/76 H 94 01/10/19 10:45 79 153/82 H 01/10/19 10:40 37 C 79 19 154/81 H 96 01/10/19 10:30 79 154/81 H 01/10/19 10:24 36.8 C 77 18 151/77 H 97 01/10/19 10:15 36.9 C 78 01/10/19 09:29 37 C 92 H 20 155/70 H 96 01/10/19 09:15 37 C 76 19 146/110 H 96 01/10/19 08:55 36.9 C 79 14 156/77 H 94 01/10/19 06:00 68 15 113/64 94 01/10/19 05:00 70 17 136/67 94 01/10/19 04:00 36.9 C 67 15 141/74 H 96 01/10/19 03:00 72 16 141/67 H 97 01/10/19 02:00 69 17 125/60 94 01/10/19 01:00 70 14 139/98 97 01/10/19 00:00 36.5 C 77 16 134/84 94
--- NOTE | 2019-01-10 12:34 | Nephrology Progress Note ---
Date of Service January 10, 2019 Assessment & Plan (1) Acute renal failure (ARF): Patient with acute renal failure likely due to chronic obstructive uropathy. CAT scan showed evidence of obstructive uropathy and multiple kidney stones at the outside hospital. Renal U/S showed bilateral hydronephrosis. He tolerated HD yesterday. We will dialyze him today for 2.5 hours, blood flow 250, dialysate flow 500 and no UF on a 2K bath. We will plan to dialyze him tomorrow as well. No need to check phosphorus daily. Plan was discussed with ICU attending (2) Hyperkalemia: Due to acute renal failure and acidosis. Improving with dialysis. We will dialyze him on a 2K bath. Patient should be on a renal diet (3) Anemia: Likely due to chronic renal failure. Other differentials include malignancy such as myeloma and cancers given patient is not uptodate with cancer screening. Will obtain further records from primary care doctor. He is getting a unit of blood. I am hesitant to give epogen with prior records to ascertain that patient does not have cancer (4) Nephrolithiasis: Patient with kidney stones on imaging. He will need outpatient follow-up with nephrology for metabolic work-up of his kidney stones and further recommendations on management. (5) Hyperphosphatemia: We will conitnue Renvela 800 mg 3 times daily with meals. Can check Phos once a week. No need to check daily (6) Hypertension: Blood pressure is high. Anticipate improvement with dialysis. No need to start antihypertensives now. Will wait to see the blood pressure trend after dialysis. Subjective Patient was seen and examined while on dialysis. he is tolerating dialysis well but CVC with low blood flow. he reports no SOB or leg swelling. he is getting bladder irrigation for the hematuria. he has back pain Review of Systems Review of Systems: All systems reviewed & are unremarkable except as noted in HPI & below Physical Exam Physical Exam: General exam: Appears comfortable, no acute distress HEENT: Pupils are equal and reactive to light Neck: No JVD, neck is supple trachea is midline Respiratory system: Clear breath sounds bilaterally. Gastrointestinal: Abdomen is soft, non distended, non tender, bowel sounds are present CVS: Regular rate and rhythm. No murmurs, rubs or gallops Musculoskeletal: No joint or muscle tenderness Extremities: Non tender, no edema, peripheral pulses are present Neuro: Oriented, no tremors, no focal neurological deficits Skin: No rashes Results & Data Vital Signs (Past 12 Hours) Vital Signs Temp Pulse Pulse Resp BP Pulse Ox 01/10/19 12:25 37 C 79 23 146/75 H 98 01/10/19 12:15 87 146/75 H 01/10/19 12:00 84 126/50 L 01/10/19 11:45 81 151/88 H 01/10/19 11:30 82 136/83 01/10/19 11:25 36.9 C 83 14 136/83 98 01/10/19 11:15 79 155/93 H 01/10/19 11:00 76 164/76 H 01/10/19 10:55 37.1 C 79 21 164/76 H 94 01/10/19 10:45 79 153/82 H 01/10/19 10:40 37 C 79 19 154/81 H 96 01/10/19 10:30 79 154/81 H 01/10/19 10:24 36.8 C 77 18 151/77 H 97 01/10/19 10:15 36.9 C 78 01/10/19 09:29 37 C 92 H 20 155/70 H 96 01/10/19 09:15 37 C 76 19 146/110 H 96 01/10/19 08:55 36.9 C 79 14 156/77 H 94 01/10/19 06:00 68 15 113/64 94 01/10/19 05:00 70 17 136/67 94 01/10/19 04:00 36.9 C 67 15 141/74 H 96 01/10/19 03:00 72 16 141/67 H 97 01/10/19 02:00 69 17 125/60 94 01/10/19 01:00 70 14 139/98 97 Laboratory Results Laboratory Results - last 24 hr 01/08/19 01/09/19 01/09/19 23:34 10:30 11:54 WBC RBC Hgb Hct MCV MCH MCHC RDW Std Deviation RDW Coeff of Yessy Plt Count MPV Immature Gran % (Auto) Neut % (Auto) Lymph % (Auto) [place] % (Auto) Eos % (Auto) Baso % (Auto) Reticulocyte % (Auto) Immature Gran # (Auto) Neut # (Auto) Lymph # (Auto) [place] # (Auto) Eos # (Auto) Baso # (Auto) Reticulocyte # Giant Platelets RBC Morphology VBG pH VBG pCO2 VBG pO2 VBG HCO3 VBG O2 Saturation VBG Base Excess Barometric Pressure Sodium 140 Potassium 4.6 Chloride 102 Carbon Dioxide 25 Anion Gap 13.0 H BUN 142 H Creatinine 19.40 H* Est Cr Clr Drug Dosing 3.2 Est GFR ( Amer) 2.4 Est GFR (Non-Af Amer) 2.1 BUN/Creatinine Ratio 7.3 L Glucose 210 H POC Glucose Estimat Average Glucose Hemoglobin A1c Calcium 7.9 L Ionized Calcium Phosphorus Magnesium Total Bilirubin Direct Bilirubin AST ALT Alkaline Phosphatase Troponin I 0.076 H* Total Protein Albumin Urine Color Cancelled Urine Appearance Cancelled Urine pH Cancelled Ur Specific Ingram Cancelled Urine Protein Cancelled Urine Glucose (UA) Cancelled Urine Ketones Cancelled Urine Blood Cancelled Urine Nitrite Cancelled Urine Bilirubin Cancelled Urine Urobilinogen Cancelled Ur Leukocyte Esterase Cancelled Urine WBC (Auto) Cancelled Urine RBC (Auto) Cancelled U Hyaline Cast (Auto) Cancelled U Epithel Cells (Auto) Cancelled Urine Bacteria (Auto) Cancelled Ur Renal Epithelial Cell Cancelled Urine Crystals Cancelled Calcium Oxalate Crystal Cancelled Uric Acid Crystals Cancelled Triple Phos Crystals Cancelled Other Crystals Cancelled Amorphous Sediment Cancelled Granular Casts Cancelled Waxy Casts Cancelled RBC Casts Cancelled WBC Casts Cancelled Other Casts Cancelled Urine Mucus Cancelled Urine Other Cancelled Urine Trichomonas Cancelled Urine Yeast Cancelled Urine Sperm Cancelled Ur Oval Fat Bodies Cancelled Blood Type O Negative Antibody Screen NEGATIVE Crossmatch See Detail 01/09/19 01/09/19 01/09/19 14:00 14:00 14:00 WBC RBC Hgb Hct MCV MCH MCHC RDW Std Deviation RDW Coeff of Yessy Plt Count MPV Immature Gran % (Auto) Neut % (Auto) Lymph % (Auto) [place] % (Auto) Eos % (Auto) Baso % (Auto) Reticulocyte % (Auto) Immature Gran # (Auto) Neut # (Auto) Lymph # (Auto) [place] # (Auto) Eos # (Auto) Baso # (Auto) Reticulocyte # Giant Platelets RBC Morphology VBG pH 7.46 H VBG pCO2 39 VBG pO2 29 VBG HCO3 27 VBG O2 Saturation < 60.0 VBG Base Excess 3.0 Barometric Pressure 732.1 Sodium Cancelled Potassium 3.3 L D Chloride Cancelled Carbon Dioxide Cancelled Anion Gap Cancelled BUN Cancelled Creatinine Cancelled Est Cr Clr Drug Dosing Cancelled Est GFR ( Amer) Cancelled Est GFR (Non-Af Amer) Cancelled BUN/Creatinine Ratio Cancelled Glucose Cancelled POC Glucose Estimat Average Glucose Hemoglobin A1c Calcium Cancelled Ionized Calcium 0.99 L Phosphorus 5.2 H D Magnesium 2.5 H Total Bilirubin Direct Bilirubin AST ALT Alkaline Phosphatase Troponin I Total Protein Albumin Urine Color Urine Appearance Urine pH Ur Specific Ingram Urine Protein Urine Glucose (UA) Urine Ketones Urine Blood Urine Nitrite Urine Bilirubin Urine Urobilinogen Ur Leukocyte Esterase Urine WBC (Auto) Urine RBC (Auto) U Hyaline Cast (Auto) U Epithel Cells (Auto) Urine Bacteria (Auto) Ur Renal Epithelial Cell Urine Crystals Calcium Oxalate Crystal Uric Acid Crystals Triple Phos Crystals Other Crystals Amorphous Sediment Granular Casts Waxy Casts RBC Casts WBC Casts Other Casts Urine Mucus Urine Other Urine Trichomonas Urine Yeast Urine Sperm Ur Oval Fat Bodies Blood Type Antibody Screen Crossmatch 01/09/19 01/09/19 01/09/19 14:00 17:02 18:31 WBC RBC Hgb Hct MCV MCH MCHC RDW Std Deviation RDW Coeff of Yessy Plt Count MPV Immature Gran % (Auto) Neut % (Auto) Lymph % (Auto) [place] % (Auto) Eos % (Auto) Baso % (Auto) Reticulocyte % (Auto) Immature Gran # (Auto) Neut # (Auto) Lymph # (Auto) [place] # (Auto) Eos # (Auto) Baso # (Auto) Reticulocyte # Giant Platelets RBC Morphology VBG pH VBG pCO2 VBG pO2 VBG HCO3 VBG O2 Saturation VBG Base Excess Barometric Pressure Sodium Potassium Cancelled Chloride Carbon Dioxide Anion Gap BUN Creatinine Est Cr Clr Drug Dosing Est GFR ( Amer) Est GFR (Non-Af Amer) BUN/Creatinine Ratio Glucose POC Glucose 229 H Estimat Average Glucose Hemoglobin A1c Calcium Ionized Calcium Phosphorus 7.5 H D Magnesium 2.7 H Total Bilirubin Direct Bilirubin AST ALT Alkaline Phosphatase Troponin I Total Protein Albumin Urine Color Urine Appearance Urine pH Ur Specific Ingram Urine Protein Urine Glucose (UA) Urine Ketones Urine Blood Urine Nitrite Urine Bilirubin Urine Urobilinogen Ur Leukocyte Esterase Urine WBC (Auto) Urine RBC (Auto) U Hyaline Cast (Auto) U Epithel Cells (Auto) Urine Bacteria (Auto) Ur Renal Epithelial Cell Urine Crystals Calcium Oxalate Crystal Uric Acid Crystals Triple Phos Crystals Other Crystals Amorphous Sediment Granular Casts Waxy Casts RBC Casts WBC Casts Other Casts Urine Mucus Urine Other Urine Trichomonas Urine Yeast Urine Sperm Ur Oval Fat Bodies Blood Type Antibody Screen Crossmatch 01/09/19 01/09/19 01/09/19 18:31 18:31 18:31 WBC RBC Hgb Hct MCV MCH MCHC RDW Std Deviation RDW Coeff of Yessy Plt Count MPV Immature Gran % (Auto) Neut % (Auto) Lymph % (Auto) [place] % (Auto) Eos % (Auto) Baso % (Auto) Reticulocyte % (Auto) Immature Gran # (Auto) Neut # (Auto) Lymph # (Auto) [place] # (Auto) Eos # (Auto) Baso # (Auto) Reticulocyte # Giant Platelets RBC Morphology VBG pH 7.48 H VBG pCO2 39 VBG pO2 32 VBG HCO3 28 VBG O2 Saturation 64.0 VBG Base Excess 4.4 Barometric Pressure 731.0 Sodium 138 Potassium 4.2 D Chloride 98 Carbon Dioxide 29 Anion Gap 11.0 BUN 100 H Creatinine 14.50 H* D Est Cr Clr Drug Dosing 4.3 Est GFR ( Amer) 3.4 Est GFR (Non-Af Amer) 3.0 BUN/Creatinine Ratio 6.9 L Glucose 191 H POC Glucose Estimat Average Glucose Hemoglobin A1c Calcium 7.5 L Ionized Calcium 0.95 L Phosphorus Magnesium Total Bilirubin Direct Bilirubin AST ALT Alkaline Phosphatase Troponin I Total Protein Albumin Urine Color Urine Appearance Urine pH Ur Specific Ingram Urine Protein Urine Glucose (UA) Urine Ketones Urine Blood Urine Nitrite Urine Bilirubin Urine Urobilinogen Ur Leukocyte Esterase Urine WBC (Auto) Urine RBC (Auto) U Hyaline Cast (Auto) U Epithel Cells (Auto) Urine Bacteria (Auto) Ur Renal Epithelial Cell Urine Crystals Calcium Oxalate Crystal Uric Acid Crystals Triple Phos Crystals Other Crystals Amorphous Sediment Granular Casts Waxy Casts RBC Casts WBC Casts Other Casts Urine Mucus Urine Other Urine Trichomonas Urine Yeast Urine Sperm Ur Oval Fat Bodies Blood Type Antibody Screen Crossmatch 01/09/19 01/09/19 01/09/19 19:12 21:16 21:58 WBC 7.41 RBC 2.19 L Hgb 6.6 L* Hct 18.6 L* MCV 84.9 MCH 30.1 MCHC 35.5 RDW Std Deviation 44.3 RDW Coeff of Yessy 14.3 Plt Count 77 L MPV 11.1 H Immature Gran % (Auto) 0.1 Neut % (Auto) 89.7 Lymph % (Auto) 4.9 [place] % (Auto) 5.3 Eos % (Auto) 0.0 Baso % (Auto) 0.0 Reticulocyte % (Auto) Immature Gran # (Auto) 0.01 Neut # (Auto) 6.65 H Lymph # (Auto) 0.36 L [place] # (Auto) 0.39 Eos # (Auto) 0.00 Baso # (Auto) 0.00 Reticulocyte # Giant Platelets 1+ RBC Morphology VBG pH VBG pCO2 VBG pO2 VBG HCO3 VBG O2 Saturation VBG Base Excess Barometric Pressure Sodium Potassium Chloride Carbon Dioxide Anion Gap BUN Creatinine Est Cr Clr Drug Dosing Est GFR ( Amer) Est GFR (Non-Af Amer) BUN/Creatinine Ratio Glucose POC Glucose 165 H Estimat Average Glucose Hemoglobin A1c Calcium Ionized Calcium Phosphorus 8.0 H Magnesium 2.6 H Total Bilirubin Direct Bilirubin AST ALT Alkaline Phosphatase Troponin I Total Protein Albumin Urine Color Urine Appearance Urine pH Ur Specific Ingram Urine Protein Urine Glucose (UA) Urine Ketones Urine Blood Urine Nitrite Urine Bilirubin Urine Urobilinogen Ur Leukocyte Esterase Urine WBC (Auto) Urine RBC (Auto) U Hyaline Cast (Auto) U Epithel Cells (Auto) Urine Bacteria (Auto) Ur Renal Epithelial Cell Urine Crystals Calcium Oxalate Crystal Uric Acid Crystals Triple Phos Crystals Other Crystals Amorphous Sediment Granular Casts Waxy Casts RBC Casts WBC Casts Other Casts Urine Mucus Urine Other Urine Trichomonas Urine Yeast Urine Sperm Ur Oval Fat Bodies Blood Type Antibody Screen Crossmatch 01/09/19 01/09/19 01/09/19 21:58 21:58 22:59 WBC RBC Hgb 7.8 L Hct 21.9 L MCV MCH MCHC RDW Std Deviation RDW Coeff of Yessy Plt Count MPV Immature Gran % (Auto) Neut % (Auto) Lymph % (Auto) [place] % (Auto) Eos % (Auto) Baso % (Auto) Reticulocyte % (Auto) Immature Gran # (Auto) Neut # (Auto) Lymph # (Auto) [place] # (Auto) Eos # (Auto) Baso # (Auto) Reticulocyte # Giant Platelets RBC Morphology VBG pH 7.49 H VBG pCO2 40 VBG pO2 32 VBG HCO3 30 VBG O2 Saturation 65.3 VBG Base Excess 5.9 Barometric Pressure 731.3 Sodium Potassium Chloride Carbon Dioxide Anion Gap BUN Creatinine Est Cr Clr Drug Dosing Est GFR ( Amer) Est GFR (Non-Af Amer) BUN/Creatinine Ratio Glucose POC Glucose Estimat Average Glucose Hemoglobin A1c Calcium Ionized Calcium 0.93 L Phosphorus Magnesium Total Bilirubin Direct Bilirubin AST ALT Alkaline Phosphatase Troponin I Total Protein Albumin Urine Color Urine Appearance Urine pH Ur Specific Ingram Urine Protein Urine Glucose (UA) Urine Ketones Urine Blood Urine Nitrite Urine Bilirubin Urine Urobilinogen Ur Leukocyte Esterase Urine WBC (Auto) Urine RBC (Auto) U Hyaline Cast (Auto) U Epithel Cells (Auto) Urine Bacteria (Auto) Ur Renal Epithelial Cell Urine Crystals Calcium Oxalate Crystal Uric Acid Crystals Triple Phos Crystals Other Crystals Amorphous Sediment Granular Casts Waxy Casts RBC Casts WBC Casts Other Casts Urine Mucus Urine Other Urine Trichomonas Urine Yeast Urine Sperm Ur Oval Fat Bodies Blood Type Antibody Screen Crossmatch 01/10/19 01/10/19 01/10/19 03:14 03:14 03:14 WBC 8.49 RBC 2.44 L Hgb 7.4 L Hct 20.8 L* MCV 85.2 MCH 30.3 MCHC 35.6 RDW Std Deviation 44.0 RDW Coeff of Yessy 14.1 Plt Count 76 L MPV 11.3 H Immature Gran % (Auto) 0.2 Neut % (Auto) 81.8 Lymph % (Auto) 9.7 [place] % (Auto) 8.2 Eos % (Auto) 0.1 Baso % (Auto) 0.0 Reticulocyte % (Auto) Immature Gran # (Auto) 0.02 Neut # (Auto) 6.94 H Lymph # (Auto) 0.82 L [place] # (Auto) 0.70 H Eos # (Auto) 0.01 Baso # (Auto) 0.00 Reticulocyte # Giant Platelets RBC Morphology Unremarkable VBG pH VBG pCO2 VBG pO2 VBG HCO3 VBG O2 Saturation VBG Base Excess Barometric Pressure Sodium 137 Potassium 4.1 Chloride 94 L Carbon Dioxide 35 H Anion Gap 8.0 BUN 103 H Creatinine 14.50 H* Est Cr Clr Drug Dosing 4.3 Est GFR ( Amer) 3.4 Est GFR (Non-Af Amer) 3.0 BUN/Creatinine Ratio 7.0 L Glucose 141 H POC Glucose Estimat Average Glucose 111 Hemoglobin A1c 5.5 Calcium 7.3 L Ionized Calcium Phosphorus 8.7 H Magnesium 2.6 H Total Bilirubin 0.4 Direct Bilirubin < 0.1 AST 7 L ALT 8 L Alkaline Phosphatase 55 Troponin I Total Protein 5.3 L D Albumin 2.7 L Urine Color Urine Appearance Urine pH Ur Specific Ingram Urine Protein Urine Glucose (UA) Urine Ketones Urine Blood Urine Nitrite Urine Bilirubin Urine Urobilinogen Ur Leukocyte Esterase Urine WBC (Auto) Urine RBC (Auto) U Hyaline Cast (Auto) U Epithel Cells (Auto) Urine Bacteria (Auto) Ur Renal Epithelial Cell Urine Crystals Calcium Oxalate Crystal Uric Acid Crystals Triple Phos Crystals Other Crystals Amorphous Sediment Granular Casts Waxy Casts RBC Casts WBC Casts Other Casts Urine Mucus Urine Other Urine Trichomonas Urine Yeast Urine Sperm Ur Oval Fat Bodies Blood Type Antibody Screen Crossmatch 01/10/19 01/10/19 01/10/19 03:14 07:32 07:47 WBC RBC Hgb 7.2 L Hct 20.4 L* MCV MCH MCHC RDW Std Deviation RDW Coeff of Yessy Plt Count MPV Immature Gran % (Auto) Neut % (Auto) Lymph % (Auto) [place] % (Auto) Eos % (Auto) Baso % (Auto) Reticulocyte % (Auto) Immature Gran # (Auto) Neut # (Auto) Lymph # (Auto) [place] # (Auto) Eos # (Auto) Baso # (Auto) Reticulocyte # Giant Platelets RBC Morphology VBG pH VBG pCO2 VBG pO2 VBG HCO3 VBG O2 Saturation VBG Base Excess Barometric Pressure Sodium Potassium Chloride Carbon Dioxide Anion Gap BUN Creatinine Est Cr Clr Drug Dosing Est GFR ( Amer) Est GFR (Non-Af Amer) BUN/Creatinine Ratio Glucose POC Glucose 127 H Estimat Average Glucose Hemoglobin A1c Calcium Ionized Calcium 0.92 L Phosphorus Magnesium Total Bilirubin Direct Bilirubin AST ALT Alkaline Phosphatase Troponin I Total Protein Albumin Urine Color Urine Appearance Urine pH Ur Specific Ingram Urine Protein Urine Glucose (UA) Urine Ketones Urine Blood Urine Nitrite Urine Bilirubin Urine Urobilinogen Ur Leukocyte Esterase Urine WBC (Auto) Urine RBC (Auto) U Hyaline Cast (Auto) U Epithel Cells (Auto) Urine Bacteria (Auto) Ur Renal Epithelial Cell Urine Crystals Calcium Oxalate Crystal Uric Acid Crystals Triple Phos Crystals Other Crystals Amorphous Sediment Granular Casts Waxy Casts RBC Casts WBC Casts Other Casts Urine Mucus Urine Other Urine Trichomonas Urine Yeast Urine Sperm Ur Oval Fat Bodies Blood Type Antibody Screen Crossmatch 01/10/19 01/10/19 07:47 12:21 WBC RBC Hgb Hct MCV MCH MCHC RDW Std Deviation RDW Coeff of Yessy Plt Count MPV Immature Gran % (Auto) Neut % (Auto) Lymph % (Auto) [place] % (Auto) Eos % (Auto) Baso % (Auto) Reticulocyte % (Auto) 1.1 Immature Gran # (Auto) Neut # (Auto) Lymph # (Auto) [place] # (Auto) Eos # (Auto) Baso # (Auto) Reticulocyte # 0.03 Giant Platelets RBC Morphology VBG pH VBG pCO2 VBG pO2 VBG HCO3 VBG O2 Saturation VBG Base Excess Barometric Pressure Sodium Potassium Chloride Carbon Dioxide Anion Gap BUN Creatinine Est Cr Clr Drug Dosing Est GFR ( Amer) Est GFR (Non-Af Amer) BUN/Creatinine Ratio Glucose POC Glucose 123 H Estimat Average Glucose Hemoglobin A1c Calcium Ionized Calcium Phosphorus Magnesium Total Bilirubin Direct Bilirubin AST ALT Alkaline Phosphatase Troponin I Total Protein Albumin Urine Color Urine Appearance Urine pH Ur Specific Ingram Urine Protein Urine Glucose (UA) Urine Ketones Urine Blood Urine Nitrite Urine Bilirubin Urine Urobilinogen Ur Leukocyte Esterase Urine WBC (Auto) Urine RBC (Auto) U Hyaline Cast (Auto) U Epithel Cells (Auto) Urine Bacteria (Auto) Ur Renal Epithelial Cell Urine Crystals Calcium Oxalate Crystal Uric Acid Crystals Triple Phos Crystals Other Crystals Amorphous Sediment Granular Casts Waxy Casts RBC Casts WBC Casts Other Casts Urine Mucus Urine Other Urine Trichomonas Urine Yeast Urine Sperm Ur Oval Fat Bodies Blood Type Antibody Screen Crossmatch
[2019-01-10 13:16] LABS: Hematocrit (blood only) 22.4 % (42-52); Hemoglobin 7.7 g/dL (14.0-18.0); Mean Corpuscular Hgb Conc 34.4 g/dL (32-36); Mean Corpuscular Volume 84.2 fL (80-100); RDW Coefficient of Variation 14.3 % (11.5-14.5); RDW Standard Deviation 43.5 fL (36.4-46.3); Red Blood Count 2.66 M/uL (4.7-6.1)
[2019-01-10 13:19] LABS: Mean Platelet Volume 10.1 fL (7.4-10.4); Platelet Count 87 K/uL (130-400)
[2019-01-10 13:37] LABS: Eosinophils # (auto) 0.01 K/uL (0-0.5); Eosinophils % (auto) 0.1 %; Giant Platelets 1+; Immature Granulocytes # (auto) 0.03 K/uL (0.00-0.02); Immature Granulocytes % (auto) 0.2 %; Lymphocytes # (auto) 0.45 K/uL (1.2-3.4); Lymphocytes % (auto) 3.4 %; Monocytes # (auto) 0.79 K/uL (0.11-0.59); Neutrophils # (auto) 11.82 K/uL (1.4-6.5); Neutrophils % (auto) 90.3 %
[2019-01-10 13:49] LABS: BUN Creatinine Ratio 7.1 (10-20); Calcium 7.7 mg/dl (8.5-10.1); Creatinine Clr Calc Pharmacy 6.2 ml/min; Est GFR (African American) 5.3; Est GFR (Non-African American) 4.6; Potassium 3.7 mmol/L (3.5-5.1)
--- NOTE | 2019-01-10 14:37 | Hospitalist Progress Note ---
Date of Service January 10, 2019 Assessment & Plan (1) Acute renal failure (ARF): Acute Renal Failure Hyperkalemia Metabolic Acidosis ARF likely due to Obstructive Uropathy --Renal USD:Severe bilateral hydroureteronephrosis.. Large bladder mass or pseudomass. As this was not seen on CT, neoplasm is considered less likely though not excluded. This could alternatively represent a hematoma or ball of infectious debris. Additional polypoid focus in the bladder lumen is also indeterminate. Urologic consultation for cystoscopy recommended. Distended urinary bladder. It is uncertain if the Zuñiga catheter is appropriately draining the bladder as it is contained within the large mass. --Continue Hemodialysis as per Nephrology Monitor renal function Avoid Nephrotoxic agents as able Acidosis resolved IV bicarbonate therapy discontinued Appreciate Nephrology/Critical Care Input Acute blood loss anemia Secondary to hematuria ? Bladder diffuse capillary injury S/P PRBC, FFP, Platelet transfusion Monitor CBC Transfuse PRN Hyperphosphatemia Continue Renvela Monitor electrolytes HTN: Slightly elevated Likely improves with HD No plan to start on meds for now monitor Hematuria Nephrolithiasis Continue CBI as per Urology Appreciate Urology Input DVT Px: Heparin SQ May need to hold heparin if Hb drops Code Status Full Code Disposition: Monitor in ICU Subjective Patient is seen and examined at bedside Sates feeling slightly better today Getting hemodialysis this morning Complains of generalized weakness On CBI for hematuria Denies any chest pain, SOB, dizziness, nausea, abd pain Family at bedside Review of Systems Review of Systems: All systems reviewed & are unremarkable except as noted in HPI & below Physical Exam Physical Exam: Physical Exam: Vitals signs as noted above General Appearance:Moderately built and nourished, no apparent distress Head: normocephalic, Atraumatic Eyes: normal inspection, EOMI Neck: supple, Trachea midline Respiratory/Chest: Normal breath sounds, CTA Cardiovascular: S1, S2, No murmur Abdomen/GI:Soft, Non tender, Bowel sounds present Extremities/Musculoskelatal:normal inspection, no edema Neurologic/Psych:AAOX3, grossly no focal neurological deficits Skin: normal color, warm Results & Data Vital Signs (Past 12 Hours) Vital Signs Temp Pulse Pulse Resp BP BP Pulse Ox 01/10/19 13:10 36.9 C 72 16 146/79 H 97 01/10/19 12:40 36.7 C 81 138/74 01/10/19 12:30 80 152/72 H 01/10/19 12:25 37 C 79 23 146/75 H 98 01/10/19 12:15 87 146/75 H 01/10/19 12:00 84 126/50 L 01/10/19 11:45 81 151/88 H 01/10/19 11:30 82 136/83 01/10/19 11:25 36.9 C 83 14 136/83 98 01/10/19 11:15 79 155/93 H 01/10/19 11:00 76 164/76 H 01/10/19 10:55 37.1 C 79 21 164/76 H 94 01/10/19 10:45 79 153/82 H 01/10/19 10:40 37 C 79 19 154/81 H 96 01/10/19 10:30 79 154/81 H 01/10/19 10:24 36.8 C 77 18 151/77 H 97 01/10/19 10:15 36.9 C 78 01/10/19 09:29 37 C 92 H 20 155/70 H 96 01/10/19 09:15 37 C 76 19 146/110 H 96 01/10/19 08:55 36.9 C 79 14 156/77 H 94 01/10/19 06:00 68 15 113/64 94 01/10/19 05:00 70 17 136/67 94 01/10/19 04:00 36.9 C 67 15 141/74 H 96 01/10/19 03:00 72 16 141/67 H 97 Laboratory Results Short CBC 01/09/19 01/09/19 01/10/19 Range/Units 19:12 22:59 03:14 WBC 7.41 8.49 (4.8-10.8) K/uL Hgb 6.6 L* 7.8 L 7.4 L (14.0-18.0) g/dL Hct 18.6 L* 21.9 L 20.8 L* (42-52) % Plt Count 77 L 76 L (130-400) K/uL 01/10/19 01/10/19 Range/Units 07:47 13:04 WBC 13.10 H (4.8-10.8) K/uL Hgb 7.2 L 7.7 L (14.0-18.0) g/dL Hct 20.4 L* 22.4 L (42-52) % Plt Count 87 L (130-400) K/uL BMP 01/09/19 01/09/19 01/10/19 14:00 18:31 03:14 Sodium 138 137 Potassium 3.3 L D 4.2 D 4.1 Chloride 98 94 L Carbon Dioxide 29 35 H BUN 100 H 103 H Creatinine 14.50 H* D 14.50 H* Glucose 191 H 141 H Calcium 7.5 L 7.3 L 01/10/19 13:04 Sodium 137 Potassium 3.7 Chloride 98 Carbon Dioxide 31 BUN 72 H Creatinine 10.10 H* D Glucose 128 H Calcium 7.7 L Liver Function 01/10/19 Range/Units 03:14 Total Bilirubin 0.4 (0.2-1) mg/dl Direct Bilirubin < 0.1 (0-0.2) mg/dl AST 7 L (15-37) U/L ALT 8 L (12-78) U/L Alkaline Phosphatase 55 (45-117) U/L Albumin 2.7 L (3.4-5.0) gm/dl
[2019-01-10 21:07] LABS: Hematocrit (blood only) 21.4 % (42-52); Hemoglobin 7.4 g/dL (14.0-18.0); Mean Corpuscular Hgb Conc 34.6 g/dL (32-36); Mean Corpuscular Volume 84.6 fL (80-100); RDW Coefficient of Variation 14.7 % (11.5-14.5); RDW Standard Deviation 45.4 fL (36.4-46.3); Red Blood Count 2.53 M/uL (4.7-6.1); White Blood Count 10.79 K/uL (4.8-10.8)
[2019-01-10 21:31] LABS: Platelet Count 84 K/uL (130-400)
[2019-01-10 21:35] LABS: Basophilic Stippling Occasional; Eosinophils # (auto) 0.02 K/uL (0-0.5); Eosinophils % (auto) 0.2 %; Immature Granulocytes # (auto) 0.02 K/uL (0.00-0.02); Immature Granulocytes % (auto) 0.2 %; Lymphocytes # (auto) 0.74 K/uL (1.2-3.4); Lymphocytes % (auto) 6.9 %; Monocytes # (auto) 0.81 K/uL (0.11-0.59); Monocytes % (auto) 7.5 %; Neutrophils % (auto) 85.2 %
[2019-01-11 00:22] LABS: Hematocrit (blood only) 21.3 % (42-52); Hemoglobin 7.5 g/dL (14.0-18.0)
[2019-01-11 04:58] LABS: Hematocrit (blood only) 20.5 % (42-52); Mean Corpuscular Hgb Conc 34.1 g/dL (32-36); Mean Corpuscular Volume 85.8 fL (80-100); Platelet Count 93 K/uL (130-400); RDW Standard Deviation 46.6 fL (36.4-46.3); Red Blood Count 2.39 M/uL (4.7-6.1); White Blood Count 9.07 K/uL (4.8-10.8)
[2019-01-11 05:13] LABS: Eosinophils # (auto) 0.04 K/uL (0-0.5); Eosinophils % (auto) 0.4 %; Immature Granulocytes # (auto) 0.02 K/uL (0.00-0.02); Immature Granulocytes % (auto) 0.2 %; Lymphocytes # (auto) 0.82 K/uL (1.2-3.4); Monocytes # (auto) 0.74 K/uL (0.11-0.59); Monocytes % (auto) 8.2 %; Neutrophils # (auto) 7.45 K/uL (1.4-6.5); Neutrophils % (auto) 82.2 %; Toxic Granulation 1+
--- NOTE | 2019-01-11 05:16 | Critical Care Progress Note ---
Date of Service January 11, 2019 Assessment & Plan (1) Obstructive and reflux uropathy: Reason Critically Ill: 73-year-old male who presented to OSH with weakness and abdominal distension and was found to have a Cr>21.5 & BUN >180, had 3L of fluid expressed following Christopher cath at OSH, and who was transferred here for further care and whose course was complicated by acute anemia with sanginous/serosanginous output into his christopher catheter. Neuro - [facility]: NEGATIVE No pain at time of clinical exam Cardiac - History of syncopal episode - Single episode lasting a few seconds prior to admission and without seizure activity, hypotension, or EKG change but with nausea and diaphoresis. - Trop I peaked at 0.079 and down trended on 01/09/2019 - EKG nsr without ST depression/elevation or T wave inversions. No recurrence of syncopal or cardiac symptoms overnight Respiratory - - No history of pulmonary disease - Lungs clear to auscultation, good air movement, no respiratory distress - At risk for TACO/TRALI given xfusions GI - Renal diet, poor appetite today. Nutrition seen yesterday, will make diet optimization's and provide boost today. RENAL/LYTES - Acute Renal Failure 2/2 Obstructive Uropathy - Admission cr 21.5 with BUN 180, no known prior renal disease - continuous bladder irrigation through triple-lumen Christopher - Urology, nephrology following. Appreciate recommendations. - L Jugular dialysis access line placed, tolerated dialysis well yesterday however poor flow rates per dialysis team His potassium and sodium remained stable, however his BUN and creatinine up trended in the interval between dialysis yesterday. Creatinine from 10 to 11, BUN from 72 to 79. His electrolytes were stable yesterday in the dialysis interval. Given interval worsening of creatinine and BUN today would delay removal of his HD catheter and continue dialysis at this time. Metabolic Acidosis 2/2 Acute Renal Failure - BMP Q8H -Clinically improved, VBG pH normalized 01/09 with subsequent normalization of PCO2 and HCO3 Hyperkalemia 2/2 ARF & metabolic acidosis Potassium remains normal at 3.6 today, no worsening since last dialysis treatment Continue BMP as above Continue to follow [place] [facility] function between dialysis Hypocalcemia Calcium 7.5, corrected calcium approximately 8.5 - Obstructive Uropathy 2/2 Prostatomegaly vs Nephrolithiasis - PSA 21, consistent with observed prostatomegaly -Following triple-lumen Christopher placement and bladder irrigation his abdominal distention has been improving and 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 Patient's reports he discussed potential work-up for prostatomegaly with urology yesterday, is pending further evaluation at this time. Will discuss with uro-. Acute blood loss anemia 2/2 hematuria with suspected bladder diffuse capillary injury - Continue to follow - Clot management and bladder irrigation as noted above Hemoglobin 7.0 from 7.5, transfusion threshold below 7.0. Recheck H&H in 8 hours. Epo discussed with nephrology, they would not administer Procrit at this time given his prostatomegaly and increased PSA without biopsy/definitive work-up. They expressed concern for worsening of any underlying prostate cancer. Recommended further evaluation by urology prior to any administration. ENDO - Insulin aspart SSI Adequate glycemic control today HEME - - Hgb 7.0 from 7.5, recheck as above - Hematuria with clot present as noted above Received 1 unit packed red blood cells and 1 unit of platelets yesterday - CBC Q8H ID - No concerns for infection at this point. Monitor fever curve. INTEGUMENTARY - No acute concerns LINES/IV ACCESS - PIVs intact. Left dual-lumen jugular HD central catheter in place Triple-lumen Christopher catheter in place, irrigation running DVT PROPHYLAXIS - Heparin 5,000u SQ BID Disposition: Stable for downgrade to med/surg Thank you for allowing us to be part of this patient's care. Please refer to Dr. Valentin's documentation for any further recommendations. Supervising Physician Co-Signing Physician Notes Dr. Mcghee was resident physician during care of patient. I separately evaluated patient for burnett portions of the history and the exam. I was present during the critical portion of medical decision making, and I discussed the case with the resident. I generally agree with the findings and plan. Patient is slated for another round of hemodialysis today. If there does not appear to be significant recovery patient may benefit from permacath placement. Stable for downgrade to MedSurg telemetry. Subjective Reports he feels mostly okay today, similar to yesterday. He feels the tremulousness and "shakes" have improved since yesterday. He has had some slight intermittent pain at the tip of his penis near the Christopher catheter insertion site, none at time of visit. Denies fevers, chills, sweats. Denies abdominal pain, continues to endorse a feeling of abdominal distention which she thinks is slowly improving. Denies chest pain, chest pressure, palpitations, shortness of breath, difficulty breathing. He had a bowel movement yesterday which was liquidy and he passed a large amount of gas. No blood/melena in his bowel movement. He is curious when he can have his dialysis catheter removed, and whether he will require dialysis today. No other questions or concerns at this time. Review of Systems Review of Systems: Constitutional: Denies fever, chills. Endorses fatigue, improved from prior. Eyes: Denies double vision, vision change, eye pain ENT: Denies ear pain, sore throat, sinus pain Cardiovascular: Denies chest pain, chest pressure, palpitations Respiratory: Denies shortness of breath, sputum production, difficulty breathing. Endorses mild cough this morning. Gastrointestinal: Denies abdominal pain, nausea, vomiting. BM as noted in HPI.. Endorses a feeling of abdominal fullness, without pain today. Continues to endorse decreased appetite, tried some food yesterday and is not sure if his appetite is increased since. Genitourinary: Denies pain with urination. Christopher in place. Intermittent discomfort at Christopher site as noted in HPI. Musculoskeletal: Denies endorses global fatigue without focal weakness, muscle aches/pain, joint aches/pain Integumentary:Denies rash, lesions, bruising Neurological: Denies headache, numbness, tingling. Does not feel tremulous this morning. Physical Exam Physical Exam: General: A&Ox3. NAD. Cooperative. Answers questions appropriately. Thought process linear, goal directed. HEENT: Atraumatic, normocephalic. PERLAA. EoM intact without nystagmus. No scleral icterus. Pulm: CTAB A&P. -wheezes, -rales, -rhonchi. Symmetrical chest rise. No increase work of breathing. No respiratory distress. Cardiac: RRR, -mrg. Radial pulses intact and symmetrical. Abdominal: Firm low central abdominal distension, improved from prior. Nontender. BS increased. : Triple-lumen Christopher in place, irrigation running, with light pink urine in catheter bag. Ext: Trace asterixis in first and second digits, greatly improved from prior. No distal extremity edema. Sensation intact in distal extremiteis, strength 5/5 in distal extremities including integration director, wrist flexion/extension, elbow flexion/extension, and ankle dorsiflexion/plantarflexion. Results & Data Vital Signs (Past 12 Hours) Vital Signs Temp Pulse Pulse Resp BP BP Pulse Ox 01/11/19 04:00 80 16 152/72 H 96 01/11/19 03:20 36.9 C 01/11/19 03:04 74 20 130/64 97 01/11/19 02:00 74 18 100/53 L 95 01/11/19 01:00 70 17 132/60 95 01/11/19 00:00 36.4 C L 72 15 144/69 H 96 01/10/19 23:00 74 20 109/81 97 01/10/19 22:01 67 15 95 01/10/19 22:00 68 15 134/68 96 01/10/19 21:01 70 15 96 01/10/19 21:00 67 15 133/70 96 01/10/19 20:01 76 23 100 01/10/19 20:00 37.0 C 78 21 154/84 H 100 01/10/19 19:00 67 19 131/66 95 01/10/19 18:01 77 18 94 01/10/19 18:00 75 18 94/51 L 94 PG Care Time/CCT Total # of Minutes Spent Total Time Spent with Patient: Total time spent is greater than 50% in coordination of care (as documented) at patient's floor/unit and/or counseling patient: Resident Activity Tracking Resident Involvement: Resident Care Provided Care Provided: Adult Hospital Medicine
[2019-01-11 05:27] LABS: BUN Creatinine Ratio 7.1 (10-20); Calcium 7.5 mg/dl (8.5-10.1); Creatinine Clr Calc Pharmacy 5.6 ml/min; Est GFR (African American) 4.7; Est GFR (Non-African American) 4.1; Magnesium 2.4 mg/dl (1.8-2.4); Phosphorus 6.7 mg/dl (2.5-4.9); Potassium 3.6 mmol/L (3.5-5.1)
[2019-01-11] MEDS: INSULIN ASPART 100 UNITS/ML 3 ML PEN SC SCH ×4 (07:57→21:18)
[2019-01-11] MEDS: CALCIUM ACETATE 667 MG CAP PO SCH ×3 (07:58→18:36)
[2019-01-11] MEDS: HEPARIN SOD 5,000 UNIT/0.5 ML VIAL SQ SCH ×2 (08:14→21:35)
--- NOTE | 2019-01-11 09:24 | Urology Progress Note ---
Date of Service January 11, 2019 Assessment & Plan (1) Hematuria: 73yo M with obstructive uropathy, severe bilateral hydroureteronephrosis, MACI, anemia Pt evaluated with Dr. Lopez at bedside today. No plans for surgical intervention at this time. H/H remains slow despite multiple blood transfusions however pt is hemodynamically stable. Continue CBI, titrate to light pink. Hand irrigate PRN for clots. We will continue to monitor with primary service. Please see notes per my attending as indicated. Subjective 73yo M acute kidney failure secondary to obstructive uropathy, bilateral hydroureteronephrosis, acute anemia Pt is starting to feel subjectively better, slight appetite today which is an improvement. Denies fever/chills,n/v. Pt denies abdominal pain or new distention at this time. CBI continues to drip at slow rate, requiring hand irrigation more commonly yesterday than today. H/H remains low at 20.5/7.0 despite 6units PRBCs, 2units FFP, 2 unit platelets. Review of Systems Review of Systems: All systems reviewed & are unremarkable except as noted in HPI & below Physical Exam Constitutional: no acute distress and not ill appearing Eyes: no nystagmus ENMT: Ears: no hearing impairment Neck: trachea midline Respiratory: no respiratory distress and no cough Cardiovascular: Vessels: no JVD Chest (Breasts): Chest: normal inspection of chest Gastrointestinal (Abdomen): Inspection/Auscultation: abdomen not distended and no abdominal edema Percussion/Palpation: abdomen soft; abdomen nontender Musculoskeletal: Head/Neck/Chest: normocephalic and head atraumatic Skin: no rashes, warm and dry Neurologic: awake; not confused and not obtunded Psychiatric: Orientation: alert and oriented x 3 Eye Contact: good eye contact Affect: no depressed affect Genitourinary: bladder normal to inspection; no CVA tenderness CBI running to mild/moderate hematuria, no clots observed today Lymphatic: no lymphadenopathy and no lymphedema Results & Data Vital Signs (Past 12 Hours) Vital Signs Temp Pulse Pulse Resp BP BP Pulse Ox 01/11/19 05:00 72 16 150/64 H 96 01/11/19 04:00 80 16 152/72 H 96 01/11/19 03:20 36.9 C 01/11/19 03:04 74 20 130/64 97 01/11/19 02:00 74 18 100/53 L 95 01/11/19 01:00 70 17 132/60 95 01/11/19 00:00 36.4 C L 72 15 144/69 H 96 01/10/19 23:00 74 20 109/81 97 01/10/19 22:01 67 15 95 01/10/19 22:00 68 15 134/68 96
[2019-01-11] MEDS ORDERED: BELLADONNA/OPIUM SUPP 60 MG SUPP PR PRN (10:23)
[2019-01-11 13:01] LABS: Hematocrit (blood only) 21.8 % (42-52); Hemoglobin 7.4 g/dL (14.0-18.0)
--- NOTE | 2019-01-11 14:36 | Hospitalist Progress Note ---
Date of Service January 11, 2019 Assessment & Plan (1) Acute renal failure (ARF): Acute Renal Failure Obstructive Uropathy Hyperkalemia Metabolic Acidosis ARF likely due to Obstructive Uropathy/BPH/Nephrolithiasis --Renal USD:Severe bilateral hydroureteronephrosis.. Large bladder mass or pseudomass. As this was not seen on CT, neoplasm is considered less likely though not excluded. This could alternatively represent a hematoma or ball of infectious debris. Additional polypoid focus in the bladder lumen is also indeterminate. Urologic consultation for cystoscopy recommended. Distended urinary bladder. It is uncertain if the Zuñiga catheter is appropriately draining the bladder as it is contained within the large mass. SPEP:pending --Continue Hemodialysis as per Nephrology Monitor renal function Avoid Nephrotoxic agents as able Acidosis resolved IV bicarbonate therapy discontinued Appreciate Nephrology/Critical Care Input Monitor renal function Acute blood loss anemia Secondary to hematuria ? Bladder diffuse capillary injury S/P PRBC, FFP, Platelet transfusion Monitor CBC Transfuse PRN Hb:7.4 today Hyperphosphatemia Continue Renvela Monitor electrolytes BPH: PSA 21 Started on Proscar HTN: BP better today Likely improves with HD No plan to start on meds for now monitor Hematuria Nephrolithiasis Continue CBI as per Urology Appreciate Urology Input DVT Px: Heparin SQ May need to hold heparin if Hb drops Code Status Full Code Disposition: To be determined Subjective Patient is seen and examined at bedside Subjectively feels improving Reports mild discomfort at the catheter site On continuous bladder irrigation No new complaints Planned for hemodialysis tomorrow Denies any chest pain, SOB, dizziness, nausea, abd pain Hb 7.4 today Review of Systems Review of Systems: All systems reviewed & are unremarkable except as noted in HPI & below Physical Exam Physical Exam: Physical Exam: Vitals signs as noted above General Appearance:Moderately built and nourished, no apparent distress Head: normocephalic, Atraumatic Eyes: normal inspection, EOMI Neck: supple, Trachea midline Respiratory/Chest: Normal breath sounds, CTA Cardiovascular: S1, S2, No murmur Abdomen/GI:Soft, Non tender, Bowel sounds present Extremities/Musculoskelatal:normal inspection, no edema Neurologic/Psych:AAOX3, grossly no focal neurological deficits Skin: normal color, warm Results & Data Vital Signs (Past 12 Hours) Vital Signs Temp Pulse Resp BP Pulse Ox 01/11/19 13:32 86 18 129/60 97 08/29/19 13:00 84 18 141/63 H 97 01/11/19 12:00 96 H 18 132/85 97 01/11/19 11:00 89 20 148/76 H 98 01/11/19 09:53 95 H 16 166/66 H 97 01/11/19 08:00 92 H 18 154/73 H 98 01/11/19 07:00 79 18 150/73 H 95 01/11/19 05:00 72 16 150/64 H 96 01/11/19 04:00 80 16 152/72 H 96 01/11/19 03:20 36.9 C 01/11/19 03:04 74 20 130/64 97 Laboratory Results Short CBC 01/10/19 01/11/19 01/11/19 Range/Units 20:49 00:13 04:24 WBC 10.79 9.07 (4.8-10.8) K/uL Hgb 7.4 L 7.5 L 7.0 L (14.0-18.0) g/dL Hct 21.4 L 21.3 L 20.5 L* (42-52) % Plt Count 84 L 93 L (130-400) K/uL 01/11/19 Range/Units 12:51 WBC (4.8-10.8) K/uL Hgb 7.4 L (14.0-18.0) g/dL Hct 21.8 L (42-52) % Plt Count (130-400) K/uL BMP 01/11/19 04:24 Sodium 139 Potassium 3.6 Chloride 100 Carbon Dioxide 31 BUN 79 H Creatinine 11.10 H* D Glucose 101 H Calcium 7.5 L
--- NOTE | 2019-01-11 16:43 | Nephrology Progress Note ---
Date of Service January 11, 2019 Assessment & Plan (1) Acute renal failure (ARF): Patient with acute renal failure likely due to chronic obstructive uropathy. CAT scan showed evidence of obstructive uropathy and multiple kidney stones at the outside hospital. Renal U/S showed bilateral hydronephrosis. He tolerated HD yesterday. Electrolytes are stable and no signs of volume overload. We will hold off dialysis today. No need to check phosphorus daily. He will likely need dialysis tomorrow (2) Hyperkalemia: Due to acute renal failure and acidosis. Improving with dialysis. Patient should be on a renal diet (3) Anemia: Likely due to chronic renal failure. Other differentials include malignancy such as myeloma and cancers given patient is not uptodate with cancer screening. Will obtain further records from primary care doctor. He is getting a unit of blood. I am hesitant to give epogen with prior records to ascertain that patient does not have cancer (4) Nephrolithiasis: Patient with kidney stones on imaging. He will need outpatient follow-up with nephrology for metabolic work-up of his kidney stones and further recommendations on management. (5) Hyperphosphatemia: We will continue Renvela 800 mg 3 times daily with meals. Can check Phos once a week. No need to check daily (6) Hypertension: Blood pressure is controlled. Subjective Patient seen in follow-up by during morning rounds for acute renal failure. No shortness of breath no leg swelling. He continues to have hematuria on bladder irrigation. He tolerated dialysis well yesterday Review of Systems Review of Systems: All systems reviewed & are unremarkable except as noted in HPI & below Physical Exam Physical Exam: General exam: Appears comfortable, no acute distress HEENT: Pupils are equal and reactive to light Neck: No JVD, neck is supple trachea is midline Respiratory system: Clear breath sounds bilaterally. Gastrointestinal: Abdomen is soft, non distended, non tender, bowel sounds are present CVS: Regular rate and rhythm. No murmurs, rubs or gallops Musculoskeletal: No joint or muscle tenderness Extremities: Non tender, no edema, peripheral pulses are present Neuro: Oriented, no tremors, no focal neurological deficits Skin: No rashes Access: Left IJ Results & Data Vital Signs (Past 12 Hours) Vital Signs Pulse Pulse Resp BP Pulse Ox 01/11/19 16:30 90 01/11/19 14:00 81 19 01/11/19 13:32 86 18 129/60 97 01/11/19 13:00 84 18 141/63 H 97 01/11/19 12:00 96 H 18 132/85 97 01/11/19 11:00 89 20 148/76 H 98 01/11/19 09:53 95 H 16 166/66 H 97 01/11/19 08:00 92 H 18 154/73 H 98 01/11/19 07:00 79 18 150/73 H 95 01/11/19 05:00 72 16 150/64 H 96 Laboratory Results Laboratory Results - last 24 hr 01/10/19 01/10/19 01/11/19 20:09 20:49 00:13 WBC 10.79 RBC 2.53 L Hgb 7.4 L 7.5 L Hct 21.4 L 21.3 L MCV 84.6 MCH 29.2 MCHC 34.6 RDW Std Deviation 45.4 RDW Coeff of Yesys 14.7 H Plt Count 84 L MPV 11.0 H Immature Gran % (Auto) 0.2 Neut % (Auto) 85.2 Lymph % (Auto) 6.9 [place] % (Auto) 7.5 Eos % (Auto) 0.2 Baso % (Auto) 0.0 Immature Gran # (Auto) 0.02 Neut # (Auto) 9.20 H Lymph # (Auto) 0.74 L [place] # (Auto) 0.81 H Eos # (Auto) 0.02 Baso # (Auto) 0.00 Toxic Granulation Basophilic Stippling Occasional Sodium Potassium Chloride Carbon Dioxide Anion Gap BUN Creatinine Est Cr Clr Drug Dosing Est GFR ( Amer) Est GFR (Non-Af Amer) BUN/Creatinine Ratio Glucose POC Glucose 120 H Calcium Phosphorus Magnesium 01/11/19 01/11/19 01/11/19 04:24 04:24 06:43 WBC 9.07 RBC 2.39 L Hgb 7.0 L Hct 20.5 L* MCV 85.8 MCH 29.3 MCHC 34.1 RDW Std Deviation 46.6 H RDW Coeff of Yessy 15.0 H Plt Count 93 L MPV 11.0 H Immature Gran % (Auto) 0.2 Neut % (Auto) 82.2 Lymph % (Auto) 9.0 [place] % (Auto) 8.2 Eos % (Auto) 0.4 Baso % (Auto) 0.0 Immature Gran # (Auto) 0.02 Neut # (Auto) 7.45 H Lymph # (Auto) 0.82 L [place] # (Auto) 0.74 H Eos # (Auto) 0.04 Baso # (Auto) 0.00 Toxic Granulation 1+ Basophilic Stippling Sodium 139 Potassium 3.6 Chloride 100 Carbon Dioxide 31 Anion Gap 8.0 BUN 79 H Creatinine 11.10 H* D Est Cr Clr Drug Dosing 5.6 Est GFR ( Amer) 4.7 Est GFR (Non-Af Amer) 4.1 BUN/Creatinine Ratio 7.1 L Glucose 101 H POC Glucose 118 H Calcium 7.5 L Phosphorus 6.7 H D Magnesium 2.4 01/11/19 01/11/19 11:31 12:51 WBC RBC Hgb 7.4 L Hct 21.8 L MCV MCH MCHC RDW Std Deviation RDW Coeff of Yessy Plt Count MPV Immature Gran % (Auto) Neut % (Auto) Lymph % (Auto) [place] % (Auto) Eos % (Auto) Baso % (Auto) Immature Gran # (Auto) Neut # (Auto) Lymph # (Auto) [place] # (Auto) Eos # (Auto) Baso # (Auto) Toxic Granulation Basophilic Stippling Sodium Potassium Chloride Carbon Dioxide Anion Gap BUN Creatinine Est Cr Clr Drug Dosing Est GFR ( Amer) Est GFR (Non-Af Amer) BUN/Creatinine Ratio Glucose POC Glucose 105 H Calcium Phosphorus Magnesium
[2019-01-11 20:55] LABS: Hematocrit (blood only) 20.3 % (42-52)
[2019-01-12 06:35] LABS: Hematocrit (blood only) 21.8 % (42-52); Hemoglobin 7.3 g/dL (14.0-18.0); Mean Corpuscular Hgb Conc 33.5 g/dL (32-36); Mean Corpuscular Volume 86.9 fL (80-100); Mean Platelet Volume 11.3 fL (7.4-10.4); Platelet Count 120 K/uL (130-400); RDW Coefficient of Variation 14.7 % (11.5-14.5); RDW Standard Deviation 46.1 fL (36.4-46.3); Red Blood Count 2.51 M/uL (4.7-6.1); White Blood Count 8.53 K/uL (4.8-10.8)
[2019-01-12 07:26] LABS: BUN Creatinine Ratio 8.7 (10-20); Calcium 8.7 mg/dl (8.5-10.1); Creatinine Clr Calc Pharmacy 6.4 ml/min; Est GFR (African American) 5.5; Est GFR (Non-African American) 4.7; Phosphorus 5.8 mg/dl (2.5-4.9); Potassium 3.4 mmol/L (3.5-5.1)
[2019-01-12] MEDS ORDERED: SODIUM CHLORIDE 0.9% 1000ML 1,000 ML IV PRN (07:44)
[2019-01-12] MEDS: ACETAMINOPHEN 325 MG TAB PO PRN ×2 (08:25→19:56)
[2019-01-12] MEDS: CALCIUM ACETATE 667 MG CAP PO SCH ×3 (08:26→18:34)
[2019-01-12] MEDS: HEPARIN SOD 5,000 UNIT/0.5 ML VIAL SQ SCH (08:28)
[2019-01-12] MEDS: INSULIN ASPART 100 UNITS/ML 3 ML PEN SC SCH ×4 (08:31→21:50)
[2019-01-12] MEDS: FINASTERIDE 5 MG TAB PO SCH (10:38)
--- NOTE | 2019-01-12 10:45 | Urology Progress Note ---
Date of Service January 12, 2019 Assessment & Plan (1) Anemia: (2) Hematuria: 73yo M with obstructive uropathy, severe bilateral hydroureteronephrosis, MACI, anemia He is hemodynamically stable, however continues to have difficulty with clotting despite CBI and minimally improved anemia s/p multiple blood transfusions. Pt had breakfast, consisting of pancakes and oatmeal which he finished at 8:30am. Discussed with Dr. Garcia, anesthesia. Pt considered nonemergent at this time, will be eligible for surgery at 4:30PM. Findings reviewed with Dr. Lopez. Given his continued anemia, in context of CBI with issues with continued clotting and requirement of rapid CBI rate, will proceed with OR for cysto, possible clot evacuation, possible fulguration depending on findings. Risks and benefits to be reviewed with patient by Dr. Lopez. OR notified. Preoperative CXR and EKG complete. Will cover with IV ancef 2gm preoperatively. Subjective 73yo M with obstructive uropathy, severe bilateral hydroureteronephrosis, MACI, anemia Pts son and daughterin law at bedside. Pt is in poor spirits today, frustrated with his situation and issues with CBI. Pt continues on CBI for the third day today. Unfortunately he had 3 episodes of clotting, requiring vigorous hand irrigation. Now running at rapid rate, draining light pink. H/H remains consistently low at 21.8/7.3. Pt continues to receive HD daily. Review of Systems Review of Systems: All systems reviewed & are unremarkable except as noted in HPI & below Physical Exam Constitutional: no acute distress and not ill appearing Eyes: no nystagmus ENMT: Ears: no hearing impairment Neck: trachea midline Respiratory: no respiratory distress and no cough Cardiovascular: Vessels: no JVD Chest (Breasts): Chest: normal inspection of chest Gastrointestinal (Abdomen): Inspection/Auscultation: abdomen not distended and no abdominal edema Percussion/Palpation: abdomen soft; abdomen nontender Musculoskeletal: Head/Neck/Chest: normocephalic and head atraumatic Skin: no rashes, warm and dry Neurologic: awake; not confused and not obtunded Psychiatric: Orientation: alert and oriented x 3 Eye Contact: good eye contact Affect: no depressed affect Genitourinary: no CVA tenderness CBI running at rapid rate, draining light pink Lymphatic: no lymphadenopathy and no lymphedema Results & Data Vital Signs (Past 12 Hours) Vital Signs Temp Pulse Pulse Resp BP Pulse Ox 01/12/19 10:00 37.0 C 94 H 01/12/19 06:34 37.1 C 82 18 177/75 H 97 01/12/19 04:00 37.2 C 89 18 153/78 H 95 01/12/19 00:00 92 H 01/11/19 23:14 36.7 C 97 H 23 184/89 H 96
[2019-01-12] MEDS: ALTEPLASE, RECOMBINANT 1 MG/ML 2ML VIAL IV SCH ×2 (10:55→18:33)
[2019-01-12] MEDS ORDERED: CEFAZOLIN 2000MG 2,000 MG/15 ML SYR IV ONE (11:41)
--- NOTE | 2019-01-12 15:23 | Anesthesiology Consultation ---
Date of Service January 12, 2019 Assessment & Plan (1) Encounter for pre-operative examination: Chart Review Chart Review: Acceptable Risk for Surgery and Patient NOT seen in Pre Admission Testing Consults Requested none History Surgery Operation Date: 01/12/19 08:00 Proposed Procedures p Cystoscopy, Possible Clot Evacuation, Possible Fulguration - Urbano Lopez MD Height/Weight Height: 5 ft 7 in Weight: 75.3 kg Allergies Allergy/AdvReac Type Severity Reaction Status Date / Time indomethacin [From Indocin] Allergy Unknown Unknown Verified 01/08/19 23:16 Medications Home Medications Medication Instructions Recorded Confirmed Last Taken allopurinol PO DAILY 01/08/19 01/07/19 21:00 Active Medications Generic Name Dose Route Start Last Admin Trade Name Freq PRN Reason Stop Dose Admin Acetaminophen 650 mg 01/12/19 07:58 01/12/19 08:25 Tylenol PO 02/11/19 07:57 650 mg Q6H PRN Administration Pain or Fever Bisacodyl 5 mg 01/10/19 08:50 01/10/19 09:09 Dulcolax PO 02/09/19 08:49 5 mg QAM PRN Administration CONSTIPATION Calcium Acetate 667 mg 01/09/19 12:00 01/12/19 12:47 Phoslo PO 02/08/19 11:59 Not Given TIDM GERALD Finasteride 5 mg 01/12/19 09:00 01/12/19 10:38 Proscar PO 02/11/19 08:59 5 mg QAM GERALD Administration Heparin Sodium (Porcine) 5,000 units 01/09/19 09:00 01/12/19 08:28 Heparin Sodium (Porcine) SQ 02/08/19 08:59 5,000 units BID GERALD Administration Insulin Aspart 0 units 01/09/19 09:30 01/12/19 12:47 Novolog Flexpen SC 02/08/19 09:29 Not Given ACHS GERALD Polyethylene Glycol 17 gm 01/10/19 08:51 01/10/19 09:09 Miralax Powder Packet PO 02/09/19 08:50 17 gm QAM PRN Administration CONSTIPATION Sennosides 17.2 mg 01/10/19 08:50 01/10/19 09:13 Senokot PO 02/09/19 08:49 17.2 mg QAM PRN Administration CONSTIPATION Exercise / Class Metabolic Activity III < 4 Walking/Shop/Light housework Past Surgical History Appendectomy, tonsillectomy, arthroscopy of his wrist and elbow. Past Anesthesia History No Hx of Anesthesia Complications and No Family Hx of Anesthesia Complications History of PONV No Hx of PONV and No Hx of Motion Sickness Social History Smoking Status: Former smoker Do You Dip or Chew Tobacco: No Hx Alcohol Use: No Hx Substance Use: No Physical Exam Vital Signs Last Vital Signs Temp 37.0 C 01/12/19 11:59 Pulse 79 01/12/19 15:00 Resp 18 01/12/19 06:34 BP 135/87 01/12/19 15:00 Pulse Ox 97 01/12/19 06:34 Testing Laboratory Results 01/12/19 06:08 01/12/19 06:08 PT 11.5 Seconds (9.0-12.0) 01/09/19 06:25 INR 1.1 (0.9-1.1) 01/09/19 06:25 APTT 25.7 Seconds (21.0-31.0) 01/08/19 23:34 Hemoglobin A1c 5.5 % (4.5-5.6) 01/10/19 03:14 Urine Color Cancelled 01/09/19 10:30 Urine Appearance Cancelled 01/09/19 10:30 Urine pH Cancelled 01/09/19 10:30 Ur Specific [place] Cancelled 01/09/19 10:30 Urine Protein Cancelled 01/09/19 10:30 Urine Glucose (UA) Cancelled 01/09/19 10:30 Urine Ketones Cancelled 01/09/19 10:30 Urine Nitrite Cancelled 01/09/19 10:30 Ur Leukocyte Esterase Cancelled 01/09/19 10:30 Urine WBC (Auto) Cancelled 01/09/19 10:30 Urine RBC (Auto) Cancelled 01/09/19 10:30 U Hyaline Cast (Auto) Cancelled 01/09/19 10:30 U Epithel Cells (Auto) Cancelled 01/09/19 10:30 Urine Bacteria (Auto) Cancelled 01/09/19 10:30 Blood Type O Negative 01/08/19 23:34 Antibody Screen NEGATIVE 01/08/19 23:34 01/12/19 01/12/19 12:01 07:32 POC Glucose 177 H 116 H Electrocardiogram Date: 01/06/19 Findings: + NSR @ (83) Normal sinus rhythm Inferior infarct , age undetermined Cannot rule out Anterior infarct , age undetermined Abnormal ECG No previous ECGs available Confirmed by Morteza Dunn ([id number]) on 01/09/2019 5:01:18 PM Chest X-Ray Date: 01/09/19 XR chest 1V portable CLINICAL HISTORY: 73 years-old Male presenting with lines. TECHNIQUE: Portable upright AP view of the chest was obtained. COMPARISON: 01/09/2019 at 6:38 AM. FINDINGS: Left internal jugular central venous catheter terminates in the upper SVC with a transverse orientation of the terminus, new from prior. Cardiomediastinal silhouette normal. No focal opacity. No large effusion or pneumothorax. Osseous structures normal. Hyperdense material projects over the epigastrium likely oral contrast within the bowel. IMPRESSION: 1. Interval placement of a left IJ catheter with acceptable positioning. 2. No evidence of a pneumothorax allowing for portable technique.
[2019-01-12] MEDS ORDERED: fentaNYL citrate 100 MCG/2 ML VIAL ONE ×2 (16:10→17:12)
[2019-01-12] MEDS ORDERED: fentaNYL citrate 100 MCG/2 ML VIAL IV PRN (16:18)
[2019-01-12] MEDS ORDERED: ONDANSETRON INJ 2 MG/ML 2 ML VIAL IV PRN (16:18)
[2019-01-12] MEDS ORDERED: ALBUMIN HUMAN 5% 12.5 GM/250 ML VIAL IV ONE (16:18)
[2019-01-12] MEDS ORDERED: HYDROmorphone INJ 1 MG/ML SYRINGE IV PRN (16:18)
[2019-01-12] MEDS ORDERED: ATROPINE SULFATE 0.1 MG/ML 10ML SYR IV PRN (16:18)
[2019-01-12] MEDS ORDERED: ePHEDrine sulfate 50 MG/ML AMP IV PRN (16:18)
[2019-01-12] MEDS ORDERED: CEFAZOLIN 2,000 MG/15 ML IV PUSH IV ONE (16:36)
--- NOTE | 2019-01-12 16:52 | Operative Report ---
Post Operative Report Pre & Post Diagnosis Operation Date: 01/12/19 08:00 Preoperative diagnosis: Refractory gross hematuria, clot retention, anemia requiring transfusion, bladder outlet obstruction with obstructive uropathy and renal failure. Postoperative diagnosis: Same. Procedure: Cystoscopy, clot evacuation, fulguration of bladder and prostate bleeders Surgeon: Dr. Urbano Lopez. Anesthesia: General anesthesia with laryngeal mask. EBL: 20 cc EBL, 500 cc of clot evacuated from bladder. Drains left in place: 24 Indonesian hematuria catheter with 20 cc of sterile water in the balloon to continuous bladder irrigation. Specimen sent to pathology: None. Findings: Patulous bladder with greater than 500 cc of thick intravesical clot evacuated, no residual clot within the bladder at the end of the case, diffuse oozing from an enlarged prostate and hemorrhagic bladder. Procedure Operation Date: 01/12/19 08:00 Brief history: Patient is a pleasant 73-year-old male admitted acutely due to urinary retention for greater than 3 L with bilateral hydronephrosis and obstructive uropathy with a creatinine of 20. This has approximately have since admission but the patient has received approximately 6 units of packed red blood cells continue to clot off his indwelling catheter with CBI. Seen his continued difficulties he is being brought to the operating room for evaluation under anesthesia with plan cystoscopy, clot evacuation possible fulguration. Please see progress notes and urology consultations for further details. Intravenous cephalosporins are provided for antibiotic coverage and SCDs used for DVT prophy laxis. Consent is reviewed with the patient and family preoperatively today. Procedure: Patient was properly identified and brought into the operative suite after identification of appropriate consent of the chart. General anesthesia with laryngeal mask was initiated and patient was prepped and draped in the standard fashion for this procedure. Full timeout procedure was followed. Indwelling Zuñiga catheter was removed and 26 Indonesian resectoscope with visual obturator was introduced into the bladder under direct visualization. This demonstrated a urethra with some evidence of anterior Zuñiga trauma at the bulbar urethra followed by lateral lobe hypertrophy of the prostate with prostatic injection and slightly oozing vessels. Within the bladder large amounts of clot was present. This was painstakingly evacuated with greater than 500 cc of thick rubbery clot being removed. After this was complete the bladder was reinspected and noted to be free of any clot. Some gently oozing vessels from the bladder and the prostate were fulgurated using a bipolar button for additional hemostasis. After this was complete no evidence of active bleeding was appreciated with clear irrigant returned with hand irrigation. 24 Indonesian hematuria catheter was replaced using a catheter guide and 20 cc of sterile water was placed within the balloon. This was placed to continuous bladder irrigation and belladonna and opium suppository was provided for additional postoperative analgesia. Anesthesia was reversed and patient was transferred to the recovery room in stable condition. Follow-up CARE: Patient will be readmitted to the floor for further management per the primary service. Would continue the Zuñiga for at least a couple more weeks. Hopefully bladder irrigation can be discontinued soon. I suspect that the majority of the patient's continued bleeding represented clot lysis and evacuation of intravesical clot. Surgeon Urbano Lopez MD [employer] None Estimated Blood Loss 20 Findings Consistent with Post-Op Diagnosis Specimens None Description of Procedure See above I attest to the content of the Intraoperative Record and any orders documented therein. Any exceptions are noted below.
[2019-01-12] MEDS ORDERED: ROCURONIUM BROMIDE 10 MG/ML 5 ML VIAL ONE (17:25)
[2019-01-12] MEDS ORDERED: PROPOFOL IV EMULSION 10 MG/ML 20 ML VIAL IV ONE (17:25)
[2019-01-12] MEDS ORDERED: ONDANSETRON INJ 2 MG/ML 2 ML VIAL ONE (17:25)
[2019-01-12] MEDS ORDERED: LIDOCAINE HCL 2% 2 ML VIAL/AMP(20MG/ML) INFIL ONE (17:25)
[2019-01-12] MEDS ORDERED: PHENYLEPHRINE 100MCG/ML 5ML SYR ONE ×2 (17:25→17:31)
[2019-01-12] MEDS ORDERED: BELLADONNA/OPIUM SUPP 60 MG SUPP PR ONE ×2 (17:49→18:12)
--- NOTE | 2019-01-12 17:54 | Nephrology Progress Note ---
Date of Service January 12, 2019 Assessment & Plan (1) Acute renal failure (ARF): Patient with acute renal failure likely due to chronic obstructive uropathy. CAT scan showed evidence of obstructive uropathy and multiple kidney stones at the outside hospital. Renal U/S showed bilateral hydronephrosis. Patient tolerated dialysis today. He is showing signs of renal recovery with increasing urine output. He was net -1 L yesterday. He also continues bladder irrigation which complicates measurement of urine output. He required TPA for his catheter today. Temporary dialysis catheter should be removed after dialysis. We will monitor over the weekend for renal recovery. If patient n eeds dialysis next week he will need tunneled dialysis catheter. (2) Anemia: Likely due to chronic renal failure. Other differentials include malignancy such as myeloma and cancers given patient is not uptodate with cancer screening. Will obtain further records from primary care doctor. He is s/p multiple units of blood. I am hesitant to give epogen with prior records to ascertain that patient does not have cancer (3) Nephrolithiasis: Patient with kidney stones on imaging. He will need outpatient follow-up with nephrology for metabolic work-up of his kidney stones and further recommendations on management. (4) Hyperphosphatemia: We will continue Renvela 800 mg 3 times daily with meals. Can check Phos once a week. No need to check daily (5) Hypertension: Blood pressure is controlled. Subjective Patient with acute kidney injury requiring dialysis seen in follow-up during morning rounds. Patient was seen and examined while on dialysis in the morning. He feels well denies any shortness of breath but complains of pain while adjusting the Zuñiga catheter. He continues to have bloody urine and on bladder irrigation. Urine output is increasing and patient was net -1 L yesterday. Review of Systems Review of Systems: All systems reviewed & are unremarkable except as noted in HPI & below Physical Exam Physical Exam: General exam: Appears comfortable, no acute distress HEENT: Pupils are equal and reactive to light Neck: No JVD, neck is supple trachea is midline Respiratory system: Clear breath sounds bilaterally. Gastrointestinal: Abdomen is soft, non distended, non tender, bowel sounds are present CVS: Regular rate and rhythm. No murmurs, rubs or gallops Musculoskeletal: No joint or muscle tenderness Extremities: Non tender, no edema, peripheral pulses are present Neuro: Oriented, no tremors, no focal neurological deficits Skin: No rashes Access: Temporary left IJ Results & Data Vital Signs (Past 12 Hours) Vital Signs Temp Pulse Pulse Pulse Resp BP BP 01/12/19 16:20 37.2 C 80 16 101/92 01/12/19 16:18 86 01/12/19 15:00 79 135/87 01/12/19 14:40 79 148/83 H 01/12/19 14:20 78 138/80 01/12/19 14:00 78 133/73 01/12/19 13:40 79 144/79 H 01/12/19 13:20 77 139/78 01/12/19 13:00 80 141/79 H 01/12/19 12:40 84 131/71 01/12/19 12:20 87 114/71 01/12/19 11:59 37.0 C 87 87 145/78 H 01/12/19 10:00 37.0 C 94 H 01/12/19 08:00 83 01/12/19 06:34 37.1 C 82 18 177/75 H Pulse Ox 01/12/19 16:20 97 01/12/19 16:18 01/12/19 15:00 01/12/19 14:40 01/12/19 14:20 01/12/19 14:00 01/12/19 13:40 01/12/19 13:20 01/12/19 13:00 01/12/19 12:40 01/12/19 12:20 01/12/19 11:59 01/12/19 10:00 01/12/19 08:00 01/12/19 06:34 97 Laboratory Results Laboratory Results - last 24 hr 01/11/19 01/11/19 01/12/19 20:42 20:46 06:08 WBC 8.53 RBC 2.51 L Hgb 7.0 L 7.3 L Hct 20.3 L* 21.8 L MCV 86.9 MCH 29.1 MCHC 33.5 RDW Std Deviation 46.1 RDW Coeff of Yessy 14.7 H Plt Count 120 L MPV 11.3 H Sodium Potassium Chloride Carbon Dioxide Anion Gap BUN Creatinine Est Cr Clr Drug Dosing Est GFR ( Amer) Est GFR (Non-Af Amer) BUN/Creatinine Ratio Glucose POC Glucose 132 H Calcium Phosphorus 01/12/19 01/12/19 01/12/19 06:08 07:32 12:01 WBC RBC Hgb Hct MCV MCH MCHC RDW Std Deviation RDW Coeff of Yessy Plt Count MPV Sodium 140 Potassium 3.4 L Chloride 102 Carbon Dioxide 31 Anion Gap 7.0 BUN 85 H Creatinine 9.80 H* D Est Cr Clr Drug Dosing 6.4 Est GFR ( Amer) 5.5 Est GFR (Non-Af Amer) 4.7 BUN/Creatinine Ratio 8.7 L Glucose 112 H POC Glucose 116 H 177 H Calcium 8.7 D Phosphorus 5.8 H
[2019-01-12] MEDS ORDERED: BELLADONNA/OPIUM SUPP 60 MG SUPP PR PRN (18:01)
[2019-01-12] MEDS ORDERED: NEOSTIGMINE METHYLSULFATE 5 MG/5 ML SYR ONE (18:25)
[2019-01-12] MEDS ORDERED: GLYCOPYRROLATE 0.2 MG/ML VIAL ONE (18:25)
--- NOTE | 2019-01-12 19:23 | Hospitalist Progress Note ---
Date of Service January 12, 2019 Assessment & Plan (1) Acute renal failure (ARF): Acute Renal Failure Obstructive Uropathy Hyperkalemia Metabolic Acidosis ARF likely due to Obstructive Uropathy/BPH/Nephrolithiasis --Renal USD:Severe bilateral hydroureteronephrosis.. Large bladder mass or pseudomass. As this was not seen on CT, neoplasm is considered less likely though not excluded. This could alternatively represent a hematoma or ball of infectious debris. Additional polypoid focus in the bladder lumen is also indeterminate. Urologic consultation for cystoscopy recommended. Distended urinary bladder. It is uncertain if the Zuñiga catheter is appropriately draining the bladder as it is contained within the large mass. SPEP:pending --S/P Cystoscopy, clot evacuation, fulguration of bladder and prostate bleeders on 01/12/19 --Continue Hemodialysis as per Nephrology Monitor renal function Avoid Nephrotoxic agents as able Acidosis resolved IV bicarbonate therapy discontinued Appreciate Nephrology/Critical Care/Urology Input Monitor renal function Plan to remove temporary dialysis catheter after dialysis today If patient continues to need dialysis, will need tunneled dialysis catheter placement next week Acute blood loss anemia Secondary to hematuria ? Bladder diffuse capillary injury S/P PRBC, FFP, Platelet transfusion Monitor CBC Transfuse PRN Hb:7.3 today Hyperphosphatemia Continue Renvela Monitor electrolytes BPH: PSA 21 Started on Proscar HTN: Likely improves with HD No plan to start on meds for now monitor Hematuria Nephrolithiasis Continue CBI as per Urology Appreciate Urology Input Management as above DVT Px: Heparin SQ May need to hold heparin if Hb drops Code Status Full Code Disposition: To be determined Subjective Patient is seen and examined at bedside States having mild abdominal discomfort this morning Continues to have hematuria Had continued clotting, requiring rapid CBI rate this morning Plan for cystoscopy, clot evacuation and fulguration of bladder and prostate bleeders by urology today Patient denies any chest pain, shortness of breath, dizziness Also plan for hemodialysis today Hb 7.3 today Review of Systems Review of Systems: All systems reviewed & are unremarkable except as noted in HPI & below Physical Exam Physical Exam: Physical Exam: Vitals signs as noted above General Appearance:Moderately built and nourished, no apparent distress Head: normocephalic, Atraumatic Eyes: normal inspection, EOMI Neck: supple, Trachea midline Respiratory/Chest: Normal breath sounds, CTA Cardiovascular: S1, S2, No murmur Abdomen/GI:Soft, Non tender, Bowel sounds present Extremities/Musculoskelatal:normal inspection, no edema Neurologic/Psych:AAOX3, grossly no focal neurological deficits Skin: normal color, warm Results & Data Vital Signs (Past 12 Hours) Vital Signs Temp Pulse Pulse Pulse Resp BP BP 01/12/19 19:05 64 15 01/12/19 18:55 36.6 C 67 13 01/12/19 18:45 73 15 01/12/19 18:35 75 14 01/12/19 18:25 79 14 01/12/19 18:17 36.8 C 75 16 01/12/19 16:20 37.2 C 80 16 101/92 01/12/19 16:18 86 01/12/19 15:00 79 135/87 01/12/19 14:40 79 148/83 H 01/12/19 14:20 78 138/80 01/12/19 14:00 78 133/73 01/12/19 13:40 79 144/79 H 01/12/19 13:20 77 139/78 01/12/19 13:00 80 141/79 H 01/12/19 12:40 84 131/71 01/12/19 12:20 87 114/71 01/12/19 11:59 37.0 C 87 87 145/78 H 01/12/19 10:00 37.0 C 94 H 01/12/19 08:00 83 BP Pulse Ox 01/12/19 19:05 126/67 100 01/12/19 18:55 120/72 100 01/12/19 18:45 127/76 100 01/12/19 18:35 128/69 100 01/12/19 18:25 121/73 100 01/12/19 18:17 116/68 100 01/12/19 16:20 97 01/12/19 16:18 01/12/19 15:00 01/12/19 14:40 01/12/19 14:20 01/12/19 14:00 01/12/19 13:40 01/12/19 13:20 01/12/19 13:00 01/12/19 12:40 01/12/19 12:20 01/12/19 11:59 01/12/19 10:00 01/12/19 08:00 Laboratory Results Short CBC 01/11/19 01/12/19 Range/Units 20:46 06:08 WBC 8.53 (4.8-10.8) K/uL Hgb 7.0 L 7.3 L (14.0-18.0) g/dL Hct 20.3 L* 21.8 L (42-52) % Plt Count 120 L (130-400) K/uL BMP 01/12/19 06:08 Sodium 140 Potassium 3.4 L Chloride 102 Carbon Dioxide 31 BUN 85 H Creatinine 9.80 H* D Glucose 112 H Calcium 8.7 D
--- NOTE | 2019-01-12 19:39 | Anesthesiology Progress Note ---
Date of Service January 12, 2019 Anesthesia Post Procedure Vital Signs Vital Signs: Temp Pulse Pulse Pulse Resp BP BP 01/12/19 19:05 64 15 01/12/19 18:55 36.6 C 67 13 01/12/19 18:45 73 15 01/12/19 18:35 75 14 01/12/19 18:25 79 14 01/12/19 18:17 36.8 C 75 16 01/12/19 16:20 37.2 C 80 16 101/92 01/12/19 16:18 86 01/12/19 15:00 79 135/87 01/12/19 14:40 79 148/83 H 01/12/19 14:20 78 138/80 01/12/19 14:00 78 133/73 01/12/19 13:40 79 144/79 H 01/12/19 13:20 77 139/78 01/12/19 13:00 80 141/79 H 01/12/19 12:40 84 131/71 01/12/19 12:20 87 114/71 01/12/19 11:59 37.0 C 87 87 145/78 H 01/12/19 10:00 37.0 C 94 H 01/12/19 08:00 83 01/12/19 06:34 37.1 C 82 18 177/75 H 01/12/19 04:00 37.2 C 89 18 153/78 H 01/12/19 00:00 92 H 01/11/19 23:14 36.7 C 97 H 23 184/89 H BP Pulse Ox 01/12/19 19:05 126/67 100 01/12/19 18:55 120/72 100 01/12/19 18:45 127/76 100 01/12/19 18:35 128/69 100 01/12/19 18:25 121/73 100 01/12/19 18:17 116/68 100 01/12/19 16:20 97 01/12/19 16:18 01/12/19 15:00 01/12/19 14:40 01/12/19 14:20 01/12/19 14:00 01/12/19 13:40 01/12/19 13:20 01/12/19 13:00 01/12/19 12:40 01/12/19 12:20 01/12/19 11:59 01/12/19 10:00 01/12/19 08:00 01/12/19 06:34 97 01/12/19 04:00 95 01/12/19 00:00 01/11/19 23:14 96 Transfer of Care Handoff Completed per policy Notes Mental Status: alert / awake / arousable and participated in evaluation Patient Amnestic to Procedure: Yes Nausea / Vomiting: adequately controlled Pain: adequately controlled Airway Patency, RR, SpO2: stable & adequate BP & HR: stable & adequate Hydration State: stable & adequate Anesthetic Complications: no major complications apparent and Pt Satisfied with anesthetic care
[2019-01-12 20:35] LABS: Hematocrit (blood only) 20.8 % (42-52); Hemoglobin 6.9 g/dL (14.0-18.0)
[2019-01-12] MEDS ORDERED: SODIUM CHLORIDE 0.9% 250 ML IV PRN (20:45)
--- NOTE | 2019-01-12 21:23 | Hospitalist Progress Note ---
Date of Service January 12, 2019 Subjective Made aware by RN of hemoglobin drop to 6.9 from 7 range. Persistent hematuria as per documentation. AP Progressive anemia secondary to hematuria Thrombocytopenia Transfuse PRBC to maintain hemoglobin greater than 7. Hold heparin SQ for now. Will relay to AM provider. Results & Data Vital Signs (Past 12 Hours) Vital Signs Temp Pulse Pulse Pulse Resp BP BP 01/12/19 20:52 68 18 01/12/19 20:32 68 18 01/12/19 20:24 67 18 01/12/19 19:05 64 15 01/12/19 18:55 36.6 C 67 13 01/12/19 18:45 73 15 01/12/19 18:35 75 14 01/12/19 18:25 79 14 01/12/19 18:17 36.8 C 75 16 01/12/19 16:20 37.2 C 80 16 101/92 01/12/19 16:18 86 01/12/19 15:00 79 135/87 01/12/19 14:40 79 148/83 H 01/12/19 14:20 78 138/80 01/12/19 14:00 78 133/73 01/12/19 13:40 79 144/79 H 01/12/19 13:20 77 139/78 01/12/19 13:00 80 141/79 H 01/12/19 12:40 84 131/71 01/12/19 12:20 87 114/71 01/12/19 11:59 37.0 C 87 87 145/78 H 01/12/19 10:00 37.0 C 94 H BP Pulse Ox 01/12/19 20:52 120/79 100 01/12/19 20:32 135/79 100 01/12/19 20:24 133/81 100 01/12/19 19:05 126/67 100 01/12/19 18:55 120/72 100 01/12/19 18:45 127/76 100 01/12/19 18:35 128/69 100 01/12/19 18:25 121/73 100 01/12/19 18:17 116/68 100 01/12/19 16:20 97 01/12/19 16:18 01/12/19 15:00 01/12/19 14:40 01/12/19 14:20 01/12/19 14:00 01/12/19 13:40 01/12/19 13:20 01/12/19 13:00 01/12/19 12:40 01/12/19 12:20 01/12/19 11:59 01/12/19 10:00
[2019-01-13 07:16] LABS: Hemoglobin 7.7 g/dL (14.0-18.0); Mean Corpuscular Hgb Conc 33.5 g/dL (32-36); Mean Corpuscular Volume 90.2 fL (80-100); Mean Platelet Volume 10.6 fL (7.4-10.4); Platelet Count 107 K/uL (130-400); RDW Coefficient of Variation 14.3 % (11.5-14.5); RDW Standard Deviation 46.7 fL (36.4-46.3); Red Blood Count 2.55 M/uL (4.7-6.1); White Blood Count 7.27 K/uL (4.8-10.8)
[2019-01-13 08:00] LABS: BUN Creatinine Ratio 7.1 (10-20); Calcium 7.7 mg/dl (8.5-10.1); Est GFR (African American) 11.8; Est GFR (Non-African American) 10.2; Phosphorus 4.4 mg/dl (2.5-4.9); Potassium 3.9 mmol/L (3.5-5.1)
[2019-01-13] MEDS: FINASTERIDE 5 MG TAB PO SCH (08:32)
[2019-01-13] MEDS: CALCIUM ACETATE 667 MG CAP PO SCH ×4 (08:32→17:07)
[2019-01-13] MEDS: INSULIN ASPART 100 UNITS/ML 3 ML PEN SC SCH ×4 (09:11→21:24)
--- NOTE | 2019-01-13 09:21 | Urology Progress Note ---
Date of Service January 13, 2019 Assessment & Plan (1) Hematuria: A/P 73-year-old male with a history of clot retention, postoperative day #1 status post cystoscopy, clot evacuation and fulguration. Rate of CBI increased slightly with improvement in urine. Hand irrigate every shift to rule out small intravesical clots. Ongoing hematuria from diffuse hemorrhagic cystitis. Will require time to resolve. Patient continues to be monitored as an inpatient for his renal function and the need for hemodialysis. We will continue CBI for now. Zuñiga will remain in place for a few weeks time until long-term bladder function management can be determined as an outpatient. Patient vocalizes understanding of the urologic treatment plan. Zuñiga care reviewed with nursing staff. Thank you for allowing us to participate in this patient's acute care. Please contact our service with any questions or concerns. 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 Patient reports that he feels well and that clot irrigation by hand has not been required overnight. CBI running slow this morning with dark pink urine, rapid clearing to light pink on increase of rate with minimal clots. He notes he was out of bed yesterday and is pending further ambulation today. He reports he is groggy but otherwise feeling less bladder pressure and discomfort than preoperatively. Lab work reviewed and creatinine noted to be down to 5. Left-sided hemodialysis catheter has been removed. Review of Systems Constitutional: no fever and no chills Eyes: no diplopia Ear, Nose, Mouth, Throat: no ear trauma Respiratory: no hemoptysis Cardiovascular: no chest pain Integumentary: no acne and no boil Neurologic: no paralysis Psychiatric: no hopelessness Allergy / Immunological: no tongue swelling Physical Exam Constitutional: well developed and well nourished; no acute distress Eyes: eyes not dysmorphic ENMT: Ears: no external ear abnormality Neck: trachea midline; no anterior neck swelling Respiratory: no respiratory distress and does not use accessory muscles Cardiovascular: Vessels: radial pulses present Gastrointestinal (Abdomen): Inspection/Auscultation: abdomen not distended Percussion/Palpation: abdomen soft; abdomen nontender Musculoskeletal: Head/Neck/Chest: normocephalic and neck supple Skin: normal turgor Neurologic: awake; not obtunded Psychiatric: Orientation: oriented x 3 Genitourinary: Zuñiga in place with slow CBI running. Lymphatic: no lymphadenopathy Results & Data Vital Signs (Past 12 Hours) Vital Signs Temp Pulse Pulse Resp BP BP BP 01/13/19 07:23 73 01/13/19 07:12 37.0 C 79 16 138/73 01/13/19 04:13 36.7 C 79 20 134/76 01/13/19 01:06 36.8 C 76 18 121/75 01/13/19 00:16 36.8 C 78 18 121/72 01/12/19 23:25 68 01/12/19 23:16 36.9 C 66 16 110/68 01/12/19 22:46 36.7 C 64 18 125/72 01/12/19 22:31 36.7 C 67 16 125/73 01/12/19 22:28 72 01/12/19 22:14 36.2 C L 67 18 120/75 01/12/19 21:50 68 18 112/67 01/12/19 21:35 66 18 115/70 01/12/19 21:20 68 20 130/78 Pulse Ox 01/13/19 07:23 01/13/19 07:12 100 01/13/19 04:13 99 01/13/19 01:06 100 01/13/19 00:16 100 01/12/19 23:25 01/12/19 23:16 100 01/12/19 22:46 100 01/12/19 22:31 100 01/12/19 22:28 01/12/19 22:14 100 01/12/19 21:50 100 01/12/19 21:35 100 01/12/19 21:20 100 PG Care Time/CCT Total # of Minutes Spent Total Time Spent with Patient: Total time spent is greater than 50% in coordination of care (as documented) at patient's floor/unit and/or counseling patient:
--- NOTE | 2019-01-13 16:44 | Hospitalist Progress Note ---
Date of Service January 13, 2019 Assessment & Plan (1) Acute renal failure (ARF): Acute Renal Failure Obstructive Uropathy Hyperkalemia--Resolved Metabolic Acidosis--Resolved ARF likely due to Obstructive Uropathy/BPH/Nephrolithiasis --Renal USD:Severe bilateral hydroureteronephrosis.. Large bladder mass or pseudomass. As this was not seen on CT, neoplasm is considered less likely though not excluded. This could alternatively represent a hematoma or ball of infectious debris. Additional polypoid focus in the bladder lumen is also indeterminate. Urologic consultation for cystoscopy recommended. Distended urinary bladder. It is uncertain if the Zuñiga catheter is appropriately draining the bladder as it is contained within the large mass. SPEP:pending --S/P Cystoscopy, clot evacuation, fulguration of bladder and prostate bleeders on 01/12/19 --Continue Hemodialysis as per Nephrology Monitor renal function Avoid Nephrotoxic agents as able IV bicarbonate therapy discontinued Appreciate Nephrology/Critical Care/Urology Input Monitor renal function Temporary dialysis catheter was removed If patient continues to need dialysis, will need tunneled dialysis catheter placement next week Monitor renal function Acute blood loss anemia Secondary to hematuria S/P PRBC, FFP, Platelet transfusion Monitor CBC Transfuse PRN Hyperphosphatemia Resolved Renvela discontinued Monitor electrolytes BPH: PSA 21 Started on Proscar HTN: Likely improves with HD No plan to start on meds for now monitor Hematuria Nephrolithiasis Detrusor failure, hematuria and clot retention from hemorrhagic cystitis S/P decompression with Zuñiga catheter S/P cystoscopy, clot evacuation and fulguration Continue CBI as per Urology Appreciate Urology Input Continue Zuñiga for now DVT Px: SCDs Re: Hematuria Code Status Full Code Disposition: Expect to discharge home when stable Subjective Patient is seen and examined at bedside Received 1 unit PRBC overnight, his hemoglobin dropped to 6.9 Hemoglobin 7.7 today Continues to be on CBI Subjective feels much better today Denies any chest pain, shortness of breath, dizziness, nausea Appetite improved Review of Systems Review of Systems: All systems reviewed & are unremarkable except as noted in HPI & below Physical Exam Physical Exam: Physical Exam: Vitals signs as noted above General Appearance:Moderately built and nourished, no apparent distress Head: normocephalic, Atraumatic Eyes: normal inspection, EOMI Neck: supple, Trachea midline Respiratory/Chest: Normal breath sounds, CTA Cardiovascular: S1, S2, No murmur Abdomen/GI:Soft, Non tender, Bowel sounds present Extremities/Musculoskelatal:normal inspection, no edema Neurologic/Psych:AAOX3, grossly no focal neurological deficits Skin: normal color, warm Results & Data Vital Signs (Past 12 Hours) Vital Signs Temp Pulse Pulse Resp BP Pulse Ox 01/13/19 16:10 37.2 C 105 H 18 163/79 H 97 01/13/19 07:23 73 01/13/19 07:12 37.0 C 79 16 138/73 100 Laboratory Results Short CBC 01/12/19 01/13/19 Range/Units 19:59 06:53 WBC 7.27 (4.8-10.8) K/uL Hgb 6.9 L* 7.7 L (14.0-18.0) g/dL Hct 20.8 L* 23.0 L (42-52) % Plt Count 107 L (130-400) K/uL BMP 01/13/19 06:53 Sodium 139 Potassium 3.9 Chloride 103 Carbon Dioxide 32 BUN 37 H D Creatinine 5.22 H* D Glucose 105 H Calcium 7.7 L
--- NOTE | 2019-01-13 16:54 | Anesthesiology Progress Note ---
Date of Service January 13, 2019 Anesthesia Post Procedure Vital Signs Vital Signs: Temp Pulse Pulse Resp BP BP BP 01/13/19 16:10 37.2 C 105 H 18 163/79 H 01/13/19 07:23 73 01/13/19 07:12 37.0 C 79 16 138/73 01/13/19 04:13 36.7 C 79 20 134/76 01/13/19 01:06 36.8 C 76 18 121/75 01/13/19 00:16 36.8 C 78 18 121/72 01/12/19 23:25 68 01/12/19 23:16 36.9 C 66 16 110/68 01/12/19 22:46 36.7 C 64 18 125/72 01/12/19 22:31 36.7 C 67 16 125/73 01/12/19 22:28 72 01/12/19 22:14 36.2 C L 67 18 120/75 01/12/19 21:50 68 18 112/67 01/12/19 21:35 66 18 115/70 01/12/19 21:20 68 20 130/78 01/12/19 21:05 70 20 117/74 01/12/19 20:52 68 18 120/79 01/12/19 20:49 68 18 120/76 01/12/19 20:38 72 18 135/79 01/12/19 20:32 68 18 135/79 01/12/19 20:24 67 18 133/81 01/12/19 20:22 72 18 133/81 01/12/19 19:45 36.7 C 71 18 137/81 01/12/19 19:15 36.3 C L 63 18 130/77 01/12/19 19:05 64 15 126/67 01/12/19 18:55 36.6 C 67 13 120/72 01/12/19 18:45 73 15 127/76 01/12/19 18:35 75 14 128/69 01/12/19 18:25 79 14 121/73 01/12/19 18:17 36.8 C 75 16 116/68 Pulse Ox 01/13/19 16:10 97 01/13/19 07:23 01/13/19 07:12 100 01/13/19 04:13 99 01/13/19 01:06 100 01/13/19 00:16 100 01/12/19 23:25 01/12/19 23:16 01/12/19 22:46 100 01/12/19 22:31 100 01/12/19 22:28 01/12/19 22:14 100 01/12/19 21:50 01/12/19 21:35 01/12/19 21:20 01/12/19 21:05 01/12/19 20:52 01/12/19 20:49 100 01/12/19 20:38 01/12/19 20:32 01/12/19 20:24 01/12/19 20:22 01/12/19 19:45 99 01/12/19 19:15 100 01/12/19 19:05 100 01/12/19 18:55 100 01/12/19 18:45 100 01/12/19 18:35 01/12/19 18:25 100 01/12/19 18:17 100 Pain Intensity Abdomen: Pain Intensity: 1 Transfer of Care Handoff Completed per policy Notes Mental Status: alert / awake / arousable and participated in evaluation Patient Amnestic to Procedure: Yes Nausea / Vomiting: adequately controlled Pain: adequately controlled Airway Patency, RR, SpO2: stable & adequate BP & HR: stable & adequate Hydration State: stable & adequate Anesthetic Complications: no major complications apparent and Pt Satisfied with anesthetic care
--- NOTE | 2019-01-13 19:31 | Nephrology Progress Note ---
Date of Service January 13, 2019 Assessment & Plan (1) Acute renal failure (ARF): improving post obstructive uropathy. Patient with acute renal failure likely due to chronic obstructive uropathy. CAT scan showed evidence of obstructive uropathy and multiple kidney stones at the outside hospital. Renal U/S showed bilateral hydronephrosis. had 3 sessions of acute dialysis, most recently 01/12. temp cath out now/ ordered out. He also continues bladder irrigation which complicates measurement of urine output. We will monitor over the weekend for renal recovery. If patient needs dialysis next week he will need tunneled dialysis catheter. (2) Anemia: Likely due to chronic renal failure. Other differentials include malignancy such as myeloma and cancers given patient is not uptodate with cancer screening. Will obtain further records from primary care doctor. He is s/p multiple units of blood including on 01/12 most recently. would not yet start epogen without prior records to ascertain that patient does not have cancer (3) Nephrolithiasis: Patient with kidney stones on imaging. He will need outpatient follow-up with nephrology for metabolic work-up of his kidney stones and further re commendations on management. (4) Hyperphosphatemia: phosphorus normal today; ok to hold renvela but will may need to resume if renal recovery stalls (5) Hypertension: Blood pressure is controlled. Subjective has few complaints today; seen on rounds 0915 w/ dr berry at bedside; no sob ,no N; tolerating po, ambulating; no edema; tolerating cbi got PRBC last evening Review of Systems Review of Systems: All systems reviewed & are unremarkable except as noted in HPI & below Physical Exam Constitutional: well developed and well nourished on ra maneuvers easily for exam Eyes: EOM intact bilaterally ENMT: Ears: no external ear abnormality Nose: no external nose abnormality Mouth: + dry oral mucous membranes Neck: no nuchal rigidity Respiratory: normal respiratory effort Auscultation: + diminished lung sounds and + crackles (bibasilar) Cardiovascular: RRR, no murmur, no edema Gastrointestinal (Abdomen): Inspection/Auscultation: normal bowel sounds Percussion/Palpation: abdomen soft; abdomen nontender Musculoskeletal: Extremities: strength 5/5 throughout Skin: no rashes, warm and dry Neurologic: chaves, fluent speech, no tremor Psychiatric: A+Ox3, euthymic affect Results & Data Vital Signs (Past 12 Hours) Vital Signs Temp Pulse Pulse Resp BP Pulse Ox 01/13/19 18:00 87 01/13/19 16:10 37.2 C 105 H 18 163/79 H 97 Laboratory Results Abnormal lab results 01/08/19 01/12/19 01/12/19 Range/Units 23:34 19:51 19:59 RBC (4.7-6.1) M/uL Hgb 6.9 L* (14.0-18.0) g/dL Hct 20.8 L* (42-52) % RDW Std Deviation (36.4-46.3) fL Plt Count (130-400) K/uL MPV (7.4-10.4) fL BUN (7-18) mg/dl Creatinine (0.6-1.4) mg/dl BUN/Creatinine Ratio (10-20) Glucose (70-99) mg/dl POC Glucose 113 H (70-99) Calcium (8.5-10.1) mg/dl Crossmatch See Detail 01/12/19 01/13/19 01/13/19 Range/Units 19:59 06:53 06:53 RBC 2.55 L (4.7-6.1) M/uL Hgb 7.7 L (14.0-18.0) g/dL Hct 23.0 L (42-52) % RDW Std Deviation 46.7 H (36.4-46.3) fL Plt Count 107 L (130-400) K/uL MPV 10.6 H (7.4-10.4) fL BUN 37 H D (7-18) mg/dl Creatinine 5.22 H* D (0.6-1.4) mg/dl BUN/Creatinine Ratio 7.1 L (10-20) Glucose 105 H (70-99) mg/dl POC Glucose (70-99) Calcium 7.7 L (8.5-10.1) mg/dl Crossmatch See Detail 01/13/19 01/13/19 01/13/19 Range/Units 07:42 11:43 17:04 RBC (4.7-6.1) M/uL Hgb (14.0-18.0) g/dL Hct (42-52) % RDW Std Deviation (36.4-46.3) fL Plt Count (130-400) K/uL MPV (7.4-10.4) fL BUN (7-18) mg/dl Creatinine (0.6-1.4) mg/dl BUN/Creatinine Ratio (10-20) Glucose (70-99) mg/dl POC Glucose 103 H 132 H 130 H (70-99) Calcium (8.5-10.1) mg/dl Crossmatch
[2019-01-13 22:10] LABS: Hemoglobin 8.2 g/dL (14.0-18.0)
[2019-01-14 06:24] LABS: Hematocrit (blood only) 23.6 % (42-52); Hemoglobin 7.8 g/dL (14.0-18.0)
[2019-01-14 07:10] LABS: BUN Creatinine Ratio 8.5 (10-20); Calcium 8.3 mg/dl (8.5-10.1); Creatinine Clr Calc Pharmacy 10.9 ml/min; Est GFR (African American) 10.5; Est GFR (Non-African American) 9.1; Phosphorus 4.3 mg/dl (2.5-4.9); Potassium 3.4 mmol/L (3.5-5.1)
[2019-01-14] MEDS ORDERED: POTASSIUM CHLORIDE 10 MEQ TABCR PO STA (07:52)
[2019-01-14] MEDS: FINASTERIDE 5 MG TAB PO SCH (09:29)
[2019-01-14] MEDS: INSULIN ASPART 100 UNITS/ML 3 ML PEN SC SCH ×4 (09:44→21:33)
--- NOTE | 2019-01-14 11:21 | Urology Progress Note ---
Date of Service January 14, 2019 Assessment & Plan (1) Hematuria: A/P 73-year-old male with a history of clot retention, postoperative day #2 status post cystoscopy, clot evacuation and fulguration. Patient's hematuria is slowly increasing as expected. Continue to wean CBI and titrate activity upwards. Leg bag training, will likely eventually need clean intermittent catheterization (CIC) training - will arrange as outpatient. No further acute intervention, can hand irrigate on a PRN basis, hematuria catheter in place. Will follow. Thank you for allowing us to participate in this patient's acute care. Please contact our service with any questions or concerns. Subjective 73 yo male POD#2 s/p cysto, clot evac and fulguration. His CBI has been slowing with clearing of the urine - light pink lemonade currently, down from light c coreen yesterday. Nursing and patient notes passage of clots after ambulation and straining for BM. Otherwise patient reports he is feeling somewhat better, family in room. His interval notes are reviewed. Hb stable for the past few days, Cr up slightly to 5.7 without recent HD, HD catheter out. Review of Systems Constitutional: no fever and no chills Eyes: no diplopia Ear, Nose, Mouth, Throat: no ear trauma Respiratory: no hemoptysis Cardiovascular: no chest pain Integumentary: no acne and no boil Neurologic: no paralysis Psychiatric: no hopelessness Allergy / Immunological: no tongue swelling Physical Exam Constitutional: well developed and well nourished; no acute distress Eyes: eyes not dysmorphic ENMT: Ears: no external ear abnormality Neck: trachea midline; no anterior neck swelling Respiratory: no respiratory distress and does not use accessory muscles Cardiovascular: Vessels: radial pulses present Gastrointestinal (Abdomen): Inspection/Auscultation: abdomen not distended Percussion/Palpation: abdomen soft; abdomen nontender Musculoskeletal: Head/Neck/Chest: normocephalic and neck supple Skin: normal turgor Neurologic: awake; not obtunded Psychiatric: Orientation: oriented x 3 Lymphatic: no lymphadenopathy Results & Data Vital Signs (Past 12 Hours) Vital Signs Temp Pulse Pulse Resp BP Pulse Ox 01/14/19 08:00 76 01/14/19 07:14 36.9 C 79 20 139/73 96 01/14/19 02:53 37.2 C 83 20 131/88 95 01/13/19 23:26 36.9 C 88 19 121/75 94 Laboratory Results Laboratory Results - last 48 hr 01/08/19 01/12/19 01/12/19 23:34 12:01 19:51 WBC RBC Hgb Hct MCV MCH MCHC RDW Std Deviation RDW Coeff of Yessy Plt Count MPV Sodium Potassium Chloride Carbon Dioxide Anion Gap BUN Creatinine Est Cr Clr Drug Dosing Est GFR ( Amer) Est GFR (Non-Af Amer) BUN/Creatinine Ratio Glucose POC Glucose 177 H 113 H Calcium Phosphorus Blood Type Antibody Screen Crossmatch See Detail 01/12/19 01/12/19 01/13/19 19:59 19:59 06:53 WBC 7.27 RBC 2.55 L Hgb 6.9 L* 7.7 L Hct 20.8 L* 23.0 L MCV 90.2 MCH 30.2 MCHC 33.5 RDW Std Deviation 46.7 H RDW Coeff of Yessy 14.3 Plt Count 107 L MPV 10.6 H Sodium Potassium Chloride Carbon Dioxide Anion Gap BUN Creatinine Est Cr Clr Drug Dosing Est GFR ( Amer) Est GFR (Non-Af Amer) BUN/Creatinine Ratio Glucose POC Glucose Calcium Phosphorus Blood Type O Negative Antibody Screen NEGATIVE Crossmatch See Detail 01/13/19 01/13/19 01/13/19 06:53 07:42 11:43 WBC RBC Hgb Hct MCV MCH MCHC RDW Std Deviation RDW Coeff of Yessy Plt Count MPV Sodium 139 Potassium 3.9 Chloride 103 Carbon Dioxide 32 Anion Gap 4.0 BUN 37 H D Creatinine 5.22 H* D Est Cr Clr Drug Dosing 12.0 Est GFR ( Amer) 11.8 Est GFR (Non-Af Amer) 10.2 BUN/Creatinine Ratio 7.1 L Glucose 105 H POC Glucose 103 H 132 H Calcium 7.7 L Phosphorus 4.4 D Blood Type Antibody Screen Crossmatch 01/13/19 01/13/19 01/13/19 17:04 20:11 21:12 WBC RBC Hgb 8.2 L Hct 25.0 L MCV MCH MCHC RDW Std Deviation RDW Coeff of Yessy Plt Count MPV Sodium Potassium Chloride Carbon Dioxide Anion Gap BUN Creatinine Est Cr Clr Drug Dosing Est GFR ( Amer) Est GFR (Non-Af Amer) BUN/Creatinine Ratio Glucose POC Glucose 130 H 127 H Calcium Phosphorus Blood Type Antibody Screen Crossmatch 01/14/19 01/14/19 01/14/19 05:50 05:50 07:29 WBC RBC Hgb 7.8 L Hct 23.6 L MCV MCH MCHC RDW Std Deviation RDW Coeff of Yessy Plt Count MPV Sodium 138 Potassium 3.4 L Chloride 102 Carbon Dioxide 29 Anion Gap 7.0 BUN 49 H Creatinine 5.73 H* D Est Cr Clr Drug Dosing 10.9 Est GFR ( Amer) 10.5 Est GFR (Non-Af Amer) 9.1 BUN/Creatinine Ratio 8.5 L Glucose 102 H POC Glucose 114 H Calcium 8.3 L Phosphorus 4.3 Blood Type Antibody Screen Crossmatch PG Care Time/CCT Total # of Minutes Spent Total Time Spent with Patient: Total time spent is greater than 50% in coordination of care (as documented) at patient's floor/unit and/or counseling patient:
--- NOTE | 2019-01-14 12:51 | Nephrology Progress Note ---
Date of Service January 14, 2019 Assessment & Plan (1) Acute renal failure (ARF): acute renal failure likely due to chronic obstructive uropathy; despite increase today in creat has improving post obstructive uropathy. borderline polyuric. had 3 sessions of acute dialysis, most recently 01/12. temp cath out now/ ordered out. He also continues bladder irrigation which complicates measurement of urine output. If patient needs dialysis next week he will need tunneled dialysis catheter but this is unlikely to be needed. serum chemistries acceptable. has also had issues w anemia needing pRBC > for now monitor (had pRBC on 01/12) -daily bmp, hgb -cont strict I/O >>increase in creatinine today reflects actual/more true creatinine value w/o dialysis; no uremic sx or indication for dialysis currently Present on Admission?: Yes (2) Obstructive and reflux uropathy: CAT scan showed evidence of obstructive uropathy and multiple kidney stones at the outside hospital. Renal U/S showed bilateral hydronephrosis. per urology Present on Admission?: Yes Subjective no complaints. ambulating; urology satisfied w/ progress; for prn hand irrigation now and eventually for CIC (as OP). no pain or sob; last HD was 01/13 Review of Systems Review of Systems: All systems reviewed & are unremarkable except as noted in HPI & below Constitutional: no fever Cardiovascular: no chest pain, no dyspnea on exertion and no lightheadedness Gastrointestinal: no abdominal pain good appetite Physical Exam Constitutional: well developed and well nourished on ra eating meal Eyes: EOM intact bilaterally ENMT: Ears: no external ear abnormality Nose: no external nose abnormality Mouth: + dry oral mucous membranes Neck: no nuchal rigidity Respiratory: normal respiratory effort Auscultation: + diminished lung sounds Cardiovascular: RRR, no murmur, no edema Gastrointestinal (Abdomen): Inspection/Auscultation: normal bowel sounds Percussion/Palpation: abdomen soft; abdomen nontender Musculoskeletal: Extremities: strength 5/5 throughout Skin: no rashes, warm and dry Neurologic: chaves, fluent speech, no tremor Psychiatric: A+Ox3, euthymic affect Genitourinary: christopher on CBI Results & Data Vital Signs (Past 12 Hours) Vital Signs Temp Pulse Pulse Resp BP BP Pulse Ox 01/14/19 11:25 36.8 C 79 18 145/78 H 98 09/01/19 08:00 76 01/14/19 07:14 36.9 C 79 20 139/73 96 01/14/19 02:53 37.2 C 83 20 131/88 95 Laboratory Results Abnormal lab results 01/12/19 01/13/19 01/13/19 Range/Units 19:59 17:04 20:11 Hgb (14.0-18.0) g/dL Hct (42-52) % Potassium (3.5-5.1) mmol/L BUN (7-18) mg/dl Creatinine (0.6-1.4) mg/dl BUN/Creatinine Ratio (10-20) Glucose (70-99) mg/dl POC Glucose 130 H 127 H (70-99) Calcium (8.5-10.1) mg/dl Crossmatch See Detail 01/13/19 01/14/19 01/14/19 Range/Units 21:12 05:50 05:50 Hgb 8.2 L 7.8 L (14.0-18.0) g/dL Hct 25.0 L 23.6 L (42-52) % Potassium 3.4 L (3.5-5.1) mmol/L BUN 49 H (7-18) mg/dl Creatinine 5.73 H* D (0.6-1.4) mg/dl BUN/Creatinine Ratio 8.5 L (10-20) Glucose 102 H (70-99) mg/dl POC Glucose (70-99) Calcium 8.3 L (8.5-10.1) mg/dl Crossmatch 01/14/19 01/14/19 Range/Units 07:29 11:28 Hgb (14.0-18.0) g/dL Hct (42-52) % Potassium (3.5-5.1) mmol/L BUN (7-18) mg/dl Creatinine (0.6-1.4) mg/dl BUN/Creatinine Ratio (10-20) Glucose (70-99) mg/dl POC Glucose 114 H 158 H (70-99) Calcium (8.5-10.1) mg/dl Crossmatch (1) Acute renal failure (ARF) Acute renal failure type: unspecified Qualified Code(s): N17.9 - Acute kidney failure, unspecified
--- NOTE | 2019-01-14 17:47 | Hospitalist Progress Note ---
Date of Service January 14, 2019 Assessment & Plan (1) Acute renal failure (ARF): Acute Renal Failure Obstructive Uropathy Hyperkalemia--Resolved Metabolic Acidosis--Resolved ARF likely due to Obstructive Uropathy/BPH/Nephrolithiasis --Renal USD:Severe bilateral hydroureteronephrosis.. Large bladder mass or pseudomass. As this was not seen on CT, neoplasm is considered less likely though not excluded. This could alternatively represent a hematoma or ball of infectious debris. Additional polypoid focus in the bladder lumen is also indeterminate. Urologic consultation for cystoscopy recommended. Distended urinary bladder. It is uncertain if the Zuñiga catheter is appropriately draining the bladder as it is contained within the large mass. SPEP:pending --S/P Cystoscopy, clot evacuation, fulguration of bladder and prostate bleeders on 01/12/19 --Continue Hemodialysis as per Nephrology Monitor renal function Avoid Nephrotoxic agents as able IV bicarbonate therapy discontinued Appreciate Nephrology/Critical Care/Urology Input Monitor renal function Temporary dialysis catheter was removed If patient continues to need dialysis, will need tunneled dialysis catheter placement next week Cr levels slightly worse today Acute blood loss anemia Secondary to hematuria S/P PRBC, FFP, Platelet transfusion Monitor CBC Transfuse PRN Hyperphosphatemia Resolved Renvela discontinued Monitor electrolytes BPH: PSA 21 Started on Proscar HTN: BP improved with HD No plan to start on meds for now monitor BP Hematuria Nephrolithiasis Detrusor failure, hematuria and clot retention from hemorrhagic cystitis S/P decompression with Zuñiga catheter S/P cystoscopy, clot evacuation and fulguration Continue CBI as per Urology Appreciate Urology Input Plan to wean CBI Will likely need CIC as outpatient DVT Px: SCDs Re: Hematuria Code Status Full Code Disposition: Expect to discharge home when stable Subjective Patient is seen and examined at bedside Doing better today No new complaints Hb 7.8 today Cr slightly worse today On CBI Denies any chest pain, SOB, dizziness, nausea, abd pain Review of Systems Review of Systems: All systems reviewed & are unremarkable except as noted in HPI & below Physical Exam Physical Exam: Physical Exam: Vitals signs as noted above General Appearance:Moderately built and nourished, no apparent distress Head: normocephalic, Atraumatic Eyes: normal inspection, EOMI Neck: supple, Trachea midline Respiratory/Chest: Normal breath sounds, CTA Cardiovascular: S1, S2, No murmur Abdomen/GI:Soft, Non tender, Bowel sounds present Extremities/Musculoskelatal:normal inspection, no edema Neurologic/Psych:AAOX3, grossly no focal neurological deficits Skin: normal color, warm Results & Data Vital Signs (Past 12 Hours) Vital Signs Temp Pulse Pulse Resp BP BP Pulse Ox 01/14/19 15:41 85 01/14/19 15:08 36.6 C 88 20 128/72 97 01/14/19 11:25 36.8 C 79 18 145/78 H 98 01/14/19 08:00 76 01/14/19 07:14 36.9 C 79 20 139/73 96 Laboratory Results Short CBC 01/13/19 01/14/19 Range/Units 21:12 05:50 Hgb 8.2 L 7.8 L (14.0-18.0) g/dL Hct 25.0 L 23.6 L (42-52) % BMP 01/14/19 05:50 Sodium 138 Potassium 3.4 L Chloride 102 Carbon Dioxide 29 BUN 49 H Creatinine 5.73 H* D Glucose 102 H Calcium 8.3 L (1) Acute renal failure (ARF) Acute renal failure type: unspecified Qualified Code(s): N17.9 - Acute kidney failure, unspecified
[2019-01-15 07:26] LABS: Hematocrit (blood only) 24.8 % (42-52); Hemoglobin 8.3 g/dL (14.0-18.0); Mean Corpuscular Hgb Conc 33.5 g/dL (32-36); Mean Corpuscular Volume 89.9 fL (80-100); Mean Platelet Volume 10.7 fL (7.4-10.4); Platelet Count 155 K/uL (130-400); RDW Coefficient of Variation 14.7 % (11.5-14.5); RDW Standard Deviation 47.2 fL (36.4-46.3); Red Blood Count 2.76 M/uL (4.7-6.1); White Blood Count 6.76 K/uL (4.8-10.8)
[2019-01-15 08:03] LABS: BUN Creatinine Ratio 10.7 (10-20); Calcium 8.9 mg/dl (8.5-10.1); Creatinine Clr Calc Pharmacy 10.3 ml/min; Est GFR (African American) 9.9; Est GFR (Non-African American) 8.5; Potassium 3.8 mmol/L (3.5-5.1)
[2019-01-15] MEDS: POLYETHYLENE (MIRALAX) 17 GM PACK PO PRN (09:57)
[2019-01-15] MEDS: DOCUSATE SODIUM 100 MG CAP PO SCH ×2 (09:57→20:46)
[2019-01-15] MEDS: FINASTERIDE 5 MG TAB PO SCH (09:58)
[2019-01-15] MEDS: INSULIN ASPART 100 UNITS/ML 3 ML PEN SC SCH ×4 (10:07→20:49)
--- NOTE | 2019-01-15 10:14 | Nephrology Progress Note ---
Date of Service January 15, 2019 Assessment & Plan (1) Acute renal failure (ARF): acute renal failure likely due to chronic obstructive uropathy; again increased creatinine today after dialysis on 01/12; no longer polyuric. had 3 sessions of acute dialysis, most recently 01/12. temp cath out now/ ordered out. He also continues bladder irrigation which complicates measurement of urine output. If patient needs dialysis this week he will need tunneled dialysis catheter - will cont to follow. serum chemistries acceptable. has also had issues w anemia needing pRBC > for now monitor (had pRBC on 01/12) -daily bmp, hgb -cont strict I/O>> discounting CBI, actual I/O are 630/800 >>increase in creatinine today reflects actual/more true creatinine value w/o dialysis; no uremic sx or indication for dialysis currently >will start NS at 80 mL hrly and follow (2) Obstructive and reflux uropathy: CAT scan showed evidence of obstructive uropathy and multiple kidney stones at the outside hospital. Renal U/S showed bilateral hydronephrosis. per urology; suspect bladder mass on u/s is clot Subjective seen at about 11 on rounds this am; no c/o n/v, gi upset or poor po; difficult to assess UOP since he remains on CBI, cont to pass occasional huge clot; no aedema; cont to ambulate Review of Systems Review of Systems: All systems reviewed & are unremarkable except as noted in HPI & below Physical Exam Constitutional: well developed and well nourished on RA, maneuvers readliy for exam Eyes: EOM intact bilaterally ENMT: Ears: no external ear abnormality Nose: no external nose abnormality Mouth: + dry oral mucous membranes Neck: no nuchal rigidity Respiratory: normal respiratory effort Auscultation: + diminished lung sounds Cardiovascular: RRR, no murmur, no edema Gastrointestinal (Abdomen): Inspection/Auscultation: normal bowel sounds Percussion/Palpation: abdomen soft; abdomen nontender Musculoskeletal: Extremities: strength 5/5 throughout Skin: no rashes, warm and dry Neurologic: chaves, fluent speech, no tremor Psychiatric: A+Ox3, euthymic affect Genitourinary: foleyu w/ cbi Results & Data Vital Signs (Past 12 Hours) Vital Signs Temp Pulse Pulse Pulse Resp BP Pulse Ox 01/15/19 07:29 36.7 C 85 18 120/78 97 01/15/19 03:35 36.7 C 77 18 124/74 97 01/15/19 00:00 36.9 C 81 18 110/57 L 97 01/14/19 23:25 74 Laboratory Results Abnormal lab results 01/14/19 01/14/19 01/14/19 Range/Units 11:28 16:30 21:02 RBC (4.7-6.1) M/uL Hgb (14.0-18.0) g/dL Hct (42-52) % RDW Std Deviation (36.4-46.3) fL RDW Coeff of Yessy (11.5-14.5) % MPV (7.4-10.4) fL BUN (7-18) mg/dl Creatinine (0.6-1.4) mg/dl Glucose (70-99) mg/dl POC Glucose 158 H 179 H 182 H (70-99) Phosphorus (2.5-4.9) mg/dl 01/15/19 01/15/19 01/15/19 Range/Units 07:02 07:02 07:41 RBC 2.76 L (4.7-6.1) M/uL Hgb 8.3 L (14.0-18.0) g/dL Hct 24.8 L (42-52) % RDW Std Deviation 47.2 H (36.4-46.3) fL RDW Coeff of Yessy 14.7 H (11.5-14.5) % MPV 10.7 H (7.4-10.4) fL BUN 65 H (7-18) mg/dl Creatinine 6.04 H* D (0.6-1.4) mg/dl Glucose 109 H (70-99) mg/dl POC Glucose 119 H (70-99) Phosphorus 5.0 H (2.5-4.9) mg/dl (1) Acute renal failure (ARF) Acute renal failure type: unspecified Qualified Code(s): N17.9 - Acute kidney failure, unspecified
--- NOTE | 2019-01-15 13:35 | Urology Progress Note ---
Date of Service January 15, 2019 Assessment & Plan (1) Hematuria: A/P 73-year-old male with a history of clot retention, postoperative day #3 status post cystoscopy, clot evacuation and fulguration. Patient's hematuria is slowly increasing as expected. Continue to wean CBI and titrate activity upwards. Leg bag training, will likely eventually need clean intermittent catheterization (CIC) training - will arrange as outpatient. Can clamp CBI for ambulation. Hopefully we can leave it clamped as of tomorrow if he continues to improve. No further acute intervention for now, can hand irrigate on a PRN basis, hematuria catheter in place. Will follow. Thank you for allowing us to participate in this patient's acute care. Please contact our service with any questions or concerns. Subjective 73-year-old male postoperative day #3 status post cystoscopy, clot evacuation and fulguration with a history of bladder outlet obstruction, obstructive uropathy and renal failure. He has not received dialysis over the weekend and a slow upward creep of his creatinine to 6 is noted. CBI is running slow with minimal clots in light pink hematuria. Patient notes he has been ambulatory and out of bed and otherwise is feeling well. He wishes to resume his vigorous exercise regimen. Past notes and events reviewed. Review of Systems Constitutional: no fever and no chills Eyes: no diplopia Ear, Nose, Mouth, Throat: no ear trauma Respiratory: no hemoptysis Cardiovascular: no chest pain Integumentary: no acne and no boil Neurologic: no paralysis Psychiatric: no hopelessness Allergy / Immunological: no tongue swelling Physical Exam Constitutional: well developed and well nourished; no acute distress Eyes: eyes not dysmorphic ENMT: Ears: no external ear abnormality Neck: trachea midline; no anterior neck swelling Respiratory: no respiratory distress and does not use accessory muscles Cardiovascular: Vessels: radial pulses present Gastrointestinal (Abdomen): Inspection/Auscultation: abdomen not distended Percussion/Palpation: abdomen soft; abdomen nontender Musculoskeletal: Head/Neck/Chest: normocephalic and neck supple Skin: normal turgor Neurologic: awake; not obtunded Psychiatric: Orientation: oriented x 3 Lymphatic: no lymphadenopathy Results & Data Vital Signs (Past 12 Hours) Vital Signs Temp Pulse Pulse Pulse Resp BP Pulse Ox 01/15/19 12:33 36.4 C L 102 H 18 150/80 H 97 01/15/19 12:11 36.5 C 89 16 112/73 98 01/15/19 08:00 82 01/15/19 07:29 36.7 C 85 18 120/78 97 01/15/19 03:35 36.7 C 77 18 124/74 97 Laboratory Results Laboratory Results - last 48 hr 01/12/19 01/13/19 01/13/19 19:59 17:04 20:11 WBC RBC Hgb Hct MCV MCH MCHC RDW Std Deviation RDW Coeff of Yessy Plt Count MPV Sodium Potassium Chloride Carbon Dioxide Anion Gap BUN Creatinine Est Cr Clr Drug Dosing Est GFR ( Amer) Est GFR (Non-Af Amer) BUN/Creatinine Ratio Glucose POC Glucose 130 H 127 H Calcium Phosphorus Crossmatch See Detail 01/13/19 01/14/19 01/14/19 21:12 05:50 05:50 WBC RBC Hgb 8.2 L 7.8 L Hct 25.0 L 23.6 L MCV MCH MCHC RDW Std Deviation RDW Coeff of Yessy Plt Count MPV Sodium 138 Potassium 3.4 L Chloride 102 Carbon Dioxide 29 Anion Gap 7.0 BUN 49 H Creatinine 5.73 H* D Est Cr Clr Drug Dosing 10.9 Est GFR ( Amer) 10.5 Est GFR (Non-Af Amer) 9.1 BUN/Creatinine Ratio 8.5 L Glucose 102 H POC Glucose Calcium 8.3 L Phosphorus 4.3 Crossmatch 01/14/19 01/14/19 01/14/19 07:29 11:28 16:30 WBC RBC Hgb Hct MCV MCH MCHC RDW Std Deviation RDW Coeff of Yessy Plt Count MPV Sodium Potassium Chloride Carbon Dioxide Anion Gap BUN Creatinine Est Cr Clr Drug Dosing Est GFR ( Amer) Est GFR (Non-Af Amer) BUN/Creatinine Ratio Glucose POC Glucose 114 H 158 H 179 H Calcium Phosphorus Crossmatch 01/14/19 01/15/19 01/15/19 21:02 07:02 07:02 WBC 6.76 RBC 2.76 L Hgb 8.3 L Hct 24.8 L MCV 89.9 MCH 30.1 MCHC 33.5 RDW Std Deviation 47.2 H RDW Coeff of Yessy 14.7 H Plt Count 155 MPV 10.7 H Sodium 138 Potassium 3.8 Chloride 101 Carbon Dioxide 27 Anion Gap 10.0 BUN 65 H Creatinine 6.04 H* D Est Cr Clr Drug Dosing 10.3 Est GFR ( Amer) 9.9 Est GFR (Non-Af Amer) 8.5 BUN/Creatinine Ratio 10.7 Glucose 109 H POC Glucose 182 H Calcium 8.9 Phosphorus 5.0 H Crossmatch 01/15/19 01/15/19 07:41 11:46 WBC RBC Hgb Hct MCV MCH MCHC RDW Std Deviation RDW Coeff of Yesys Plt Count MPV Sodium Potassium Chloride Carbon Dioxide Anion Gap BUN Creatinine Est Cr Clr Drug Dosing Est GFR ( Amer) Est GFR (Non-Af Amer) BUN/Creatinine Ratio Glucose POC Glucose 119 H 133 H Calcium Phosphorus Crossmatch PG Care Time/CCT Total # of Minutes Spent Total Time Spent with Patient: Total time spent is greater than 50% in coordination of care (as documented) at patient's floor/unit and/or counseling patient:
--- NOTE | 2019-01-15 17:53 | Hospitalist Progress Note ---
Date of Service January 15, 2019 Assessment & Plan (1) Acute renal failure (ARF): Acute Renal Failure Obstructive Uropathy Hyperkalemia--Resolved Metabolic Acidosis--Resolved ARF likely due to Obstructive Uropathy/BPH/Nephrolithiasis --Renal USD:Severe bilateral hydroureteronephrosis.. Large bladder mass or pseudomass. As this was not seen on CT, neoplasm is considered less likely though not excluded. This could alternatively represent a hematoma or ball of infectious debris. Additional polypoid focus in the bladder lumen is also indeterminate. Urologic consultation for cystoscopy recommended. Distended urinary bladder. It is uncertain if the Zuñiga catheter is appropriately draining the bladder as it is contained within the large mass. SPEP:pending --S/P Cystoscopy, clot evacuation, fulguration of bladder and prostate bleeders on 01/12/19 --Continue Hemodialysis as per Nephrology Monitor renal function Avoid Nephrotoxic agents as able IV bicarbonate therapy discontinued Appreciate Nephrology/Critical Care/Urology Input Monitor renal function Temporary dialysis catheter was removed If patient continues to need dialysis, will need tunneled dialysis catheter placement next week Cr levels slightly up today Gentle IV fluids as per Nephro Acute blood loss anemia Secondary to hematuria S/P PRBC, FFP, Platelet transfusion Monitor CBC Transfuse PRN Constipation Continue bowel regimen Hyperphosphatemia Renvela discontinued Monitor electrolytes BPH: PSA 21 Started on Proscar HTN: BP improved with HD No plan to start on meds for now monitor BP Hematuria Nephrolithiasis Detrusor failure, hematuria and clot retention from hemorrhagic cystitis S/P decompression with Zuñiga catheter S/P cystoscopy, clot evacuation and fulguration Continue CBI as per Urology Appreciate Urology Input Plan to wean CBI Will likely need CIC as outpatient DVT Px: SCDs Re: Hematuria Code Status Full Code Disposition: Expect to discharge home when stable Subjective Patient is seen and examined at bedside Reports constipation Cr levels slightly up Gentle IV fluids as per Nephro Hb stable On CBI Denies any chest pain, SOB, dizziness, nausea, abd pain Review of Systems Review of Systems: All systems reviewed & are unremarkable except as noted in HPI & below Physical Exam Physical Exam: Physical Exam: Vitals signs as noted above General Appearance:Moderately built and nourished, no apparent distress Head: normocephalic, Atraumatic Eyes: normal inspection, EOMI Neck: supple, Trachea midline Respiratory/Chest: Normal breath sounds, CTA Cardiovascular: S1, S2, No murmur Abdomen/GI:Soft, Non tender, Bowel sounds present Extremities/Musculoskelatal:normal inspection, no edema Neurologic/Psych:AAOX3, grossly no focal neurological deficits Skin: normal color, warm Results & Data Vital Signs (Past 12 Hours) Vital Signs Temp Pulse Pulse Resp BP Pulse Ox 01/15/19 15:31 37.2 C 87 20 121/74 97 01/15/19 14:59 95 H 01/15/19 12:33 36.4 C L 102 H 18 150/80 H 97 01/15/19 12:11 36.5 C 89 16 112/73 98 01/15/19 08:00 82 01/15/19 07:29 36.7 C 85 18 120/78 97 Laboratory Results Short CBC 01/15/19 Range/Units 07:02 WBC 6.76 (4.8-10.8) K/uL Hgb 8.3 L (14.0-18.0) g/dL Hct 24.8 L (42-52) % Plt Count 155 (130-400) K/uL BMP 01/15/19 07:02 Sodium 138 Potassium 3.8 Chloride 101 Carbon Dioxide 27 BUN 65 H Creatinine 6.04 H* D Glucose 109 H Calcium 8.9 (1) Acute renal failure (ARF) Acute renal failure type: unspecified Qualified Code(s): N17.9 - Acute kidney failure, unspecified
[2019-01-15] MEDS ORDERED: SODIUM CHLORIDE 0.9% 1000ML 1,000 ML IV SCH (18:15)
[2019-01-15] MEDS: BISACODYL 5 MG TABEC PO PRN (18:45)
[2019-01-16 06:08] LABS: Hematocrit (blood only) 24.5 % (42-52); Hemoglobin 8.2 g/dL (14.0-18.0)
[2019-01-16 06:50] LABS: Albumin 2.8 G/DL (3.8-4.8); Alpha 1 Globulin 0.4 G/DL (0.2-0.3); Alpha 2 Globulin 0.6 G/DL (0.5-0.9); Beta-1-Globulin 0.3 G/DL (0.4-0.6); Beta-2-Globulin 0.2 G/DL (0.2-0.5); Gamma Globulin 0.7 G/DL (0.8-1.7); Monoclonal Protein Band 1 DNR G/DL (NOT DETECTED); Monoclonal Protein Band 2 DNR G/DL (NOT DETECTED); Monoclonal Protein Band 3 DNR G/DL (NOT DETECTED); Total Protein 5.1 G/DL (6.2-8.3)
[2019-01-16 06:51] LABS: BUN Creatinine Ratio 13.1 (10-20); Calcium 8.3 mg/dl (8.5-10.1); Creatinine Clr Calc Pharmacy 9.7 ml/min; Est GFR (African American) 9.2; Est GFR (Non-African American) 7.9; Phosphorus 6.4 mg/dl (2.5-4.9)
[2019-01-16] MEDS: DOCUSATE SODIUM 100 MG CAP PO SCH ×2 (07:53→20:47)
[2019-01-16] MEDS: FINASTERIDE 5 MG TAB PO SCH (07:54)
--- NOTE | 2019-01-16 07:55 | Nephrology Progress Note ---
Date of Service January 16, 2019 Assessment & Plan (1) Acute renal failure (ARF): acute renal failure likely due to chronic obstructive uropathy; again further increased creatinine today after last dialysis on 01/12; no longer polyuric, though this can be hard to measure accurately. had 3 sessions of acute dialysis, most recently 01/12. temp cath out. He also continues bladder irrigation which complicates measurement of urine output. If patient needs dialysis this week he will need tunneled dialysis catheter - will cont to follow. serum chemistries acceptable. has also had issues w anemia needing pRBC > for now monitor (had pRBC on 01/12) -daily bmp, hgb -cont strict I/O, challenge getting accurate reading >>further increase in creatinine today reflects actual/more true creatinine value w/o dialysis; no uremic sx or indication for dialysis currently; hope that creatinine will plateau soon; may still need HD this admission >will start NS at 80 mL hrly x 1L and follow (2) Obstructive and reflux uropathy: CAT scan showed evidence of obstructive uropathy and multiple kidney stones at the outside hospital. Renal U/S showed bilateral hydronephrosis. per urology; suspect bladder mass on u/s is clot Subjective ambulating, eating full meal; no N, no sob, no edema; stopped CBI today and clots came back Review of Systems Review of Systems: All systems reviewed & are unremarkable except as noted in HPI & below Physical Exam Constitutional: well developed and well nourished Eyes: EOM intact bilaterally ENMT: Ears: no external ear abnormality Nose: no external nose abnormality Mouth: + dry oral mucous membranes Neck: no nuchal rigidity Respiratory: normal respiratory effort Auscultation: + diminished lung sounds Cardiovascular: RRR, no murmur, no edema Gastrointestinal (Abdomen): Inspection/Auscultation: normal bowel sounds Percussion/Palpation: abdomen soft; abdomen nontender Musculoskeletal: Extremities: strength 5/5 throughout Skin: no rashes, warm and dry Neurologic: chaves, fluent speech, no tremor Psychiatric: A+Ox3, euthymic affect Genitourinary: christopher w/ blood tinged urine Results & Data Vital Signs (Past 12 Hours) Vital Signs Temp Pulse Resp BP Pulse Ox 01/16/19 07:00 36.9 C 79 16 120/73 97 01/16/19 04:49 37 C 82 18 113/66 98 01/15/19 23:26 36.9 C 84 20 122/75 99 Laboratory Results Abnormal lab results 01/10/19 01/15/19 01/15/19 Range/Units 13:04 07:02 11:46 Hgb (14.0-18.0) g/dL Hct (42-52) % BUN 65 H (7-18) mg/dl Creatinine 6.04 H* D (0.6-1.4) mg/dl Glucose 109 H (70-99) mg/dl POC Glucose 133 H (70-99) Calcium (8.5-10.1) mg/dl Phosphorus 5.0 H (2.5-4.9) mg/dl Total Protein (PEP) 5.1 L (6.2-8.3) G/DL Albumin (PEP) 2.8 L (3.8-4.8) G/DL Solhg-1-Jgvdinhcu 0.4 H (0.2-0.3) G/DL Zeaw-7-Ytxyaxao 0.3 L (0.4-0.6) G/DL Gamma Globulins 0.7 L (0.8-1.7) G/DL 01/15/19 01/15/19 01/16/19 Range/Units 16:32 20:35 05:31 Hgb (14.0-18.0) g/dL Hct (42-52) % BUN 83 H (7-18) mg/dl Creatinine 6.42 H* D (0.6-1.4) mg/dl Glucose 103 H (70-99) mg/dl POC Glucose 120 H 125 H (70-99) Calcium 8.3 L (8.5-10.1) mg/dl Phosphorus 6.4 H D (2.5-4.9) mg/dl Total Protein (PEP) (6.2-8.3) G/DL Albumin (PEP) (3.8-4.8) G/DL Lruzx-0-Wnmlwvgbn (0.2-0.3) G/DL Ebhw-2-Qbmnqfer (0.4-0.6) G/DL Gamma Globulins (0.8-1.7) G/DL 01/16/19 01/16/19 Range/Units 05:31 07:25 Hgb 8.2 L (14.0-18.0) g/dL Hct 24.5 L (42-52) % BUN (7-18) mg/dl Creatinine (0.6-1.4) mg/dl Glucose (70-99) mg/dl POC Glucose 107 H (70-99) Calcium (8.5-10.1) mg/dl Phosphorus (2.5-4.9) mg/dl Total Protein (PEP) (6.2-8.3) G/DL Albumin (PEP) (3.8-4.8) G/DL Qzasu-6-Cclptqjus (0.2-0.3) G/DL Iivu-5-Pqnplcit (0.4-0.6) G/DL Gamma Globulins (0.8-1.7) G/DL (1) Acute renal failure (ARF) Acute renal failure type: unspecified Qualified Code(s): N17.9 - Acute kidney failure, unspecified
--- NOTE | 2019-01-16 08:24 | Anesthesiology Progress Note ---
Date of Service January 16, 2019 Anesthesia Post Procedure Vital Signs Vital Signs: Temp Pulse Pulse Resp BP BP Pulse Ox 01/16/19 07:00 36.9 C 79 16 120/73 97 01/16/19 04:49 37 C 82 18 113/66 98 01/15/19 23:26 36.9 C 84 20 122/75 99 01/15/19 19:00 36.7 C 98 H 20 100/67 97 01/15/19 15:31 37.2 C 87 20 121/74 97 01/15/19 14:59 95 H 01/15/19 12:33 36.4 C L 102 H 18 150/80 H 97 01/15/19 12:11 36.5 C 89 16 112/73 98 Pain Intensity Abdomen: Pain Intensity: 1 Notes Mental Status: alert / awake / arousable and participated in evaluation Nausea / Vomiting: adequately controlled Pain: adequately controlled Airway Patency, RR, SpO2: stable & adequate BP & HR: stable & adequate Hydration State: stable & adequate
[2019-01-16] MEDS: INSULIN ASPART 100 UNITS/ML 3 ML PEN SC SCH ×4 (08:34→20:51)
[2019-01-16] MEDS: POLYETHYLENE (MIRALAX) 17 GM PACK PO PRN (11:11)
--- NOTE | 2019-01-16 12:17 | Urology Progress Note ---
Date of Service January 16, 2019 Assessment & Plan (1) Hematuria: POD #4 s/p cysto, clot evacuation. Improved hematuria. CBI clamped. Likely okay to DC later today with continued toleration. Outpatient follow up with our service has been arranged. Please contact us if additional questions/concerns. (2) BPH (benign prostatic hyperplasia): Subjective 73 YO male POD #4 s/p cysto, clot evacuation. Patient reports feeling well this AM. No fevers/chills. No nausea/vomiting. Zuñiga not bothersome. CBI is 80% clamped. Review of Systems Review of Systems: All systems reviewed & are unremarkable except as noted in HPI & below Physical Exam Physical Exam: NAD. Resp effort normal. No JVD. : Zuñiga in place, patent, draining clear yellow urine. CBI ~80% clamped. A&Ox3, appropriate affect. Results & Data Vital Signs (Past 12 Hours) Vital Signs Temp Pulse Resp BP BP Pulse Ox 01/16/19 11:35 36.9 C 87 18 108/66 96 01/16/19 07:00 36.9 C 79 16 120/73 97 01/16/19 04:49 37 C 82 18 113/66 98
--- NOTE | 2019-01-16 17:33 | Hospitalist Progress Note ---
Date of Service January 16, 2019 Assessment & Plan (1) Acute renal failure (ARF): Acute Renal Failure Obstructive Uropathy Hyperkalemia--Resolved Metabolic Acidosis--Resolved ARF likely due to Obstructive Uropathy/BPH/Nephrolithiasis --Renal USD:Severe bilateral hydroureteronephrosis.. Large bladder mass or pseudomass. As this was not seen on CT, neoplasm is considered less likely though not excluded. This could alternatively represent a hematoma or ball of infectious debris. Additional polypoid focus in the bladder lumen is also indeterminate. Urologic consultation for cystoscopy recommended. Distended urinary bladder. It is uncertain if the Zuñiga catheter is appropriately draining the bladder as it is contained within the large mass. SPEP:pending --S/P Cystoscopy, clot evacuation, fulguration of bladder and prostate bleeders on 01/12/19 --Continue Hemodialysis as per Nephrology Monitor renal function Avoid Nephrotoxic agents as able IV bicarbonate therapy discontinued Appreciate Nephrology/Critical Care/Urology Input Monitor renal function Temporary dialysis catheter was removed If patient continues to need dialysis, will need tunneled dialysis catheter placement next week Cr levels: 6.42 today Gentle IV fluids as per Nephro Acute blood loss anemia Secondary to hematuria S/P PRBC, FFP, Platelet transfusion Monitor CBC Transfuse PRN Hb stable Constipation Continue bowel regimen Encourage to ambulate Hyperphosphatemia Renvela discontinued Monitor electrolytes BPH: PSA 21 Started on Proscar HTN: BP improved with HD No plan to start on meds for now monitor BP Hematuria Nephrolithiasis Detrusor failure, hematuria and clot retention from hemorrhagic cystitis S/P decompression with Zuñiga catheter S/P cystoscopy, clot evacuation and fulguration Continue CBI as per Urology Appreciate Urology Input Plan for CBI to be clamped Will likely need CIC as outpatient H/O Gout Allopurinol on hold If renal function improves, adjust dose renally when resumed DVT Px: SCDs Re: Hematuria Code Status Full Code Disposition: Expect to discharge home when stable Subjective Patient is seen and examined at bedside Hematuria slowly improving Continues bladder irrigation plan to be clamped Hemoglobin stable Still has constipation this morning Cr levels slightly up Denies any chest pain, SOB, dizziness, nausea, abd pain Review of Systems Review of Systems: All systems reviewed & are unremarkable except as noted in HPI & below Physical Exam Physical Exam: Physical Exam: Vitals signs as noted above General Appearance:Moderately built and nourished, no apparent distress Head: normocephalic, Atraumatic Eyes: normal inspection, EOMI Neck: supple, Trachea midline Respiratory/Chest: Normal breath sounds, CTA Cardiovascular: S1, S2, No murmur Abdomen/GI:Soft, Non tender, Bowel sounds present Extremities/Musculoskelatal:normal inspection, no edema Neurologic/Psych:AAOX3, grossly no focal neurological deficits Skin: normal color, warm Results & Data Vital Signs (Past 12 Hours) Vital Signs Temp Pulse Resp BP BP Pulse Ox 01/16/19 15:14 37.0 C 88 20 98/61 L 98 01/16/19 11:35 36.9 C 87 18 108/66 96 01/16/19 07:00 36.9 C 79 16 120/73 97 Laboratory Results Short CBC 01/16/19 Range/Units 05:31 Hgb 8.2 L (14.0-18.0) g/dL Hct 24.5 L (42-52) % BMP 01/16/19 05:31 Sodium 137 Potassium 4.0 Chloride 101 Carbon Dioxide 25 BUN 83 H Creatinine 6.42 H* D Glucose 103 H Calcium 8.3 L (1) Acute renal failure (ARF) Acute renal failure type: unspecified Qualified Code(s): N17.9 - Acute kidney failure, unspecified
[2019-01-16] MEDS ORDERED: SODIUM CHLORIDE 0.9% 1000ML 1,000 ML IV SCH (19:15)
[2019-01-17 07:09] LABS: Hematocrit (blood only) 23.1 % (42-52); Hemoglobin 7.8 g/dL (14.0-18.0); Mean Corpuscular Hgb Conc 33.8 g/dL (32-36); Mean Corpuscular Volume 87.8 fL (80-100); Mean Platelet Volume 10.2 fL (7.4-10.4); Platelet Count 172 K/uL (130-400); RDW Coefficient of Variation 14.6 % (11.5-14.5); RDW Standard Deviation 45.8 fL (36.4-46.3); Red Blood Count 2.63 M/uL (4.7-6.1); White Blood Count 6.08 K/uL (4.8-10.8)
[2019-01-17 07:50] LABS: BUN Creatinine Ratio 16.2 (10-20); Calcium 8.1 mg/dl (8.5-10.1); Creatinine Clr Calc Pharmacy 11.4 ml/min; Est GFR (African American) 11.1; Est GFR (Non-African American) 9.6
[2019-01-17] MEDS: DOCUSATE SODIUM 100 MG CAP PO SCH ×2 (07:59→20:47)
[2019-01-17] MEDS: FINASTERIDE 5 MG TAB PO SCH (08:00)
[2019-01-17] MEDS: INSULIN ASPART 100 UNITS/ML 3 ML PEN SC SCH ×4 (08:01→20:43)
[2019-01-17] MEDS ORDERED: SODIUM CHLORIDE 0.9% 1000ML 1,000 ML IV SCH (09:30)
--- NOTE | 2019-01-17 17:15 | Hospitalist Progress Note ---
Date of Service January 17, 2019 Assessment & Plan (1) Acute renal failure (ARF): Acute Renal Failure Required transient dialysis, Appreciate nephrology input Acute renal failure: Likely due to Obstructive Uropathy/BPH/Nephrolithiasis --Renal US:Severe bilateral hydroureteronephrosis.. Large bladder mass or pseudomass. As this was not seen on CT, neoplasm is considered less likely though not excluded. This could alternatively represent a hematoma or ball of infectious debris. Additional polypoid focus in the bladder lumen is also indeterminate. Urologic consulted, --S/P Cystoscopy, clot evacuation, fulguration of bladder and prostate bleeders on 01/12/19 Patient was placed on Zuñiga catheter and continuous bladder irrigation Hematuria has resolved, Continue recommendation as per urology Present on Admission?: Yes (2) Hematuria: , hematuria and clot retention from hemorrhagic cystitis S/P decompression with Zuñiga catheter S/P cystoscopy, clot evacuation and fulguration-by [facility] urology Continue CBI as per Urology (3) Acute blood loss anemia: Acute blood loss anemia Secondary to hematuria S/P PRBC, FFP, Platelet transfusion Hemoglobin 7.8 Hematuria has resolved after continuous bladder irrigation Repeat CBC in a.m., transfusion for hemoglobin less than 7 (4) Hypertension: HTN: BP improved with HD No plan to start on meds for now monitor BP (5) BPH (benign prostatic hyperplasia): BPH: PSA 21 Started on Proscar Constipation Continue bowel regimen Encourage to ambulate Hyperphosphatemia Renvela discontinued Monitor electrolytes CODE STATUS: Full code DVT prophylaxis: SCD and teds, patient is encouraged to ambulate and avoid pharmacological anticoagulation secondary to hematuria Disposition: Expected to be discharged home when medically stable Subjective patient denies of any pain or discomfort, Hematuria resolved, Zuñiga draining clear yellow urine No complaint of shortness of breath chest heaviness or cough, No fever or chills Review of Systems Review of Systems: All systems reviewed & are unremarkable except as noted in HPI & below Physical Exam Constitutional: no acute distress Eyes: PERRL, conjunctivae normal, anicteric sclerae ENMT: external ear and nose normal, oropharynx normal Neck: trachea midline, no thyromegaly Respiratory: normal respiratory effort, lungs clear to auscultation Cardiovascular: RRR, no murmur, no edema Gastrointestinal (Abdomen): normal bowel sounds, soft, nontender, no hepato splenomegaly Musculoskeletal: no cyanosis or clubbing, extremities motor strength 5/5 Skin: no rashes, warm and dry Neurologic: PERRL, EOMI, accommodation nl, no face palsy, no dysarthria Psychiatric: A+Ox3, euthymic affect Results & Data Vital Signs (Past 12 Hours) Vital Signs Temp Pulse Pulse Resp BP BP Pulse Ox 01/17/19 15:28 80 01/17/19 15:05 36.6 C 80 20 117/65 98 01/17/19 11:35 36.8 C 95 H 20 102/63 99 01/17/19 07:28 36.9 C 76 20 118/71 98 (1) Acute renal failure (ARF) Acute renal failure type: unspecified Qualified Code(s): N17.9 - Acute kidney failure, unspecified
--- NOTE | 2019-01-17 18:11 | Nephrology Progress Note ---
Date of Service January 17, 2019 Assessment & Plan (1) Acute renal failure (ARF): acute renal failure likely due to chronic obstructive uropathy; again further increased creatinine today after last dialysis on 01/12; no longer polyuric, though this can be hard to measure accurately. had 3 sessions of acute dialysis, most recently 01/12. temp cath out. He also continues bladder irrigation which complicates measurement of urine output. If patient needs dialysis this week he will need tunneled dialysis catheter - will cont to follow. serum chemistries acceptable. has also had issues w anemia needing pRBC > for now monitor (had pRBC on 01/12) -daily bmp, hgb -cont strict I/O, challenge getting accurate reading >>further increase in creatinine today reflects actual/more true creatinine value w/o dialysis; no uremic sx or indication for dialysis currently; hope that creatinine will plateau soon; may still need HD this admission >will start NS at 80 mL hrly x 1L and follow -if consistent down trend w/o IVF support, may be able to d/c and follow closely as OP (2) Obstructive and reflux uropathy: CAT scan showed evidence of obstructive uropathy and multiple kidney stones at the outside hospital. Renal U/S showed bilateral hydronephrosis. per urology; suspect bladder mass on u/s is clot Subjective ambulating, eating well, denies N, sob, edema; soem abd discomfort w/ ongoingconstipation but had smear bm today; no CBI at all today Review of Systems Review of Systems: All systems reviewed & are unremarkable except as noted in HPI & below Physical Exam Constitutional: well developed and well nourished on RA nad Eyes: EOM intact bilaterally ENMT: Ears: no external ear abnormality Nose: no external nose abnormality Mouth: + dry oral mucous membranes Neck: no nuchal rigidity Respiratory: normal respiratory effort Auscultation: + diminished lung sounds Cardiovascular: RRR, no murmur, no edema Gastrointestinal (Abdomen): Inspection/Auscultation: + abdomen distended and normal bowel sounds Percussion/Palpation: abdomen soft; abdomen nontender Musculoskeletal: Extremities: strength 5/5 throughout Skin: no rashes, warm and dry Neurologic: chaves, fluent speech, no tremor Psychiatric: A+Ox3, euthymic affect Genitourinary: christopher w/ clearer dark yellow urine Results & Data Vital Signs (Past 12 Hours) Vital Signs Temp Pulse Pulse Resp BP BP Pulse Ox 01/17/19 15:28 80 01/17/19 15:05 36.6 C 80 20 117/65 98 01/17/19 11:35 36.8 C 95 H 20 102/63 99 01/17/19 07:28 36.9 C 76 20 118/71 98 Laboratory Results Abnormal lab results 01/16/19 01/17/19 01/17/19 Range/Units 20:49 06:58 06:58 RBC 2.63 L (4.7-6.1) M/uL Hgb 7.8 L (14.0-18.0) g/dL Hct 23.1 L (42-52) % RDW Coeff of Yessy 14.6 H (11.5-14.5) % BUN 89 H (7-18) mg/dl Creatinine 5.49 H* D (0.6-1.4) mg/dl Glucose 104 H (70-99) mg/dl POC Glucose 121 H (70-99) Calcium 8.1 L (8.5-10.1) mg/dl 01/17/19 01/17/19 01/17/19 Range/Units 07:49 11:44 17:10 RBC (4.7-6.1) M/uL Hgb (14.0-18.0) g/dL Hct (42-52) % RDW Coeff of Yessy (11.5-14.5) % BUN (7-18) mg/dl Creatinine (0.6-1.4) mg/dl Glucose (70-99) mg/dl POC Glucose 113 H 136 H 108 H (70-99) Calcium (8.5-10.1) mg/dl (1) Acute renal failure (ARF) Acute renal failure type: unspecified Qualified Code(s): N17.9 - Acute kidney failure, unspecified
[2019-01-18] MEDS: FINASTERIDE 5 MG TAB PO SCH (08:55)
[2019-01-18] MEDS: DOCUSATE SODIUM 100 MG CAP PO SCH ×2 (08:55→21:00)
[2019-01-18] MEDS: INSULIN ASPART 100 UNITS/ML 3 ML PEN SC SCH ×4 (09:15→21:09)
[2019-01-18 09:17] LABS: BUN Creatinine Ratio 17.7 (10-20); Calcium 8.5 mg/dl (8.5-10.1); Creatinine Clr Calc Pharmacy 12.8 ml/min; Est GFR (African American) 12.8; Est GFR (Non-African American) 11.1; Potassium 4.2 mmol/L (3.5-5.1)
[2019-01-18 10:45] LABS: Hematocrit (blood only) 23.7 % (42-52); Hemoglobin 7.9 g/dL (14.0-18.0)
--- NOTE | 2019-01-18 14:20 | Nephrology Progress Note ---
Date of Service January 18, 2019 Assessment & Plan (1) Acute renal failure (ARF): acute renal failure likely due to chronic obstructive uropathy; again further increased creatinine today after last dialysis on 01/12; + polyuric. had 3 sessions of acute dialysis, most recently 01/12. temp cath out. He also continues bladder irrigation which complicates measurement of urine output. If patient needs dialysis this week he will need tunneled dialysis catheter - will cont to followbut he does not appear likely to need it serum chemistries acceptable. has also had issues w anemia needing pRBC > for now monitor (had pRBC on 01/12) -daily bmp, hgb -cont strict I/O >>no ivf needed -if consistent down trend w/o IVF support, may be able to d/c and follow closely as OP >>very important to clarify w/ pt where he will be after d/c so that appropriate f/u in [place] if needed or here in [facility] can be arranged (2) Obstructive and reflux uropathy: CAT scan showed evidence of obstructive uropathy and multiple kidney stones at the outside hospital. Renal U/S showed bilateral hydronephrosis. per urology; suspect bladder mass on u/s is clot Subjective seen on rounds at 0800; no sob, no pain in abd/chest/joints, ate full breakfast, urine in christopher clearer and no further CBI, + ambulation; may be going to live w/ his son in [place] after d/c Review of Systems 2 Review of Systems: All systems reviewed & are unremarkable except as noted in HPI & below Physical Exam Constitutional: well developed and well nourished on ra Eyes: EOM intact bilaterally ENMT: Ears: no external ear abnormality Nose: no external nose abnormality Mouth: + dry oral mucous membranes Neck: no nuchal rigidity Respiratory: normal respiratory effort Auscultation: + diminished lung sounds Cardiovascular: RRR, no murmur, no edema Gastrointestinal (Abdomen): Inspection/Auscultation: + abdomen distended and normal bowel sounds Percussion/Palpation: abdomen soft; abdomen nontender Musculoskeletal: Extremities: strength 5/5 throughout Skin: no rashes, warm and dry Neurologic: chaves, fluent speech no tremot Psychiatric: A+Ox3, euthymic affect Genitourinary: christopher w/ large urine no obvious blood tinge Results & Data Vital Signs (Past 12 Hours) Vital Signs Temp Pulse Resp BP BP Pulse Ox 01/18/19 11:44 36.8 C 90 18 114/66 97 01/18/19 07:31 37.0 C 63 20 115/68 95 01/18/19 04:00 37.1 C 78 20 112/62 98 (1) Acute renal failure (ARF) Acute renal failure type: unspecified Qualified Code(s): N17.9 - Acute kidney failure, unspecified
--- NOTE | 2019-01-18 15:25 | Hospitalist Progress Note ---
Date of Service January 18, 2019 Assessment & Plan (1) Acute renal failure (ARF): Admitted with acute renal failure with obstructive uropathy, creatinine was 21 Required dialysis Appreciate nephrology input Last dialysis was on 01/12/2019 Creatinine worsened to 6.425.49-> improved to 4.86 Given IV fluid yesterday, Patient input from nephrology, We will continue to monitor BMP Avoid nephrotoxins, contrast studies will need outpatient nephrology follow-up on discharge Acute renal failure: Likely due to Obstructive Uropathy/BPH/Nephrolithiasis --Renal US:Severe bilateral hydroureteronephrosis.. Large bladder mass or pseudomass. As this was not seen on CT, neoplasm is considered less likely though not excluded. This could alternatively represent a hematoma or ball of infectious debris. Additional polypoid focus in the bladder lumen is also indeterminate. Urologic consulted, --S/P Cystoscopy, clot evacuation, fulguration of bladder and prostate bleeders on 01/12/19 Patient was placed on Zuñiga catheter and continuous bladder irrigation Hematuria has resolved, CBI discontinued (2) Hematuria: Zuñiga draining clear yellow urine , hematuria and clot retention from hemorrhagic cystitis S/P decompression with Zuñiga catheter S/P cystoscopy, clot evacuation and fulguration-by [facility] urology Treated with CBI, discontinued (3) Acute blood loss anemia: Acute blood loss anemia Secondary to hematuria S/P PRBC, FFP, Platelet transfusion Hemoglobin 7.8 We will continue to monitor H&H transfusion for hemoglobin less than 7 (4) Hypertension: HTN: Developed hypertensive urgency secondary to acute renal failure BP improved with HD (5) BPH (benign prostatic hyperplasia): BPH: PSA 21 Started on Proscar Constipation Continue bowel regimen Encourage to ambulate Hyperphosphatemia Renvela discontinued Monitor electrolytes CODE STATUS: Full code DVT prophylaxis: SCD and teds, patient is encouraged to ambulate and avoid pharmacological anticoagulation secondary to hematuria Disposition: Expected to be discharged home when medically stable Patient wants to be relocated to [place] after discharge to be nearby with his son Will need to establish with urology [place] Subjective Has been doing very well, no complaint of abdominal pain appetite has improved Says he has been able to walk around the hallway multiple times without getting any shortness of breath dizzy spell Zuñiga draining clear urine Off CBI no fever chills, vitals remained stable Review of Systems Review of Systems: All systems reviewed & are unremarkable except as noted in HPI & below Physical Exam Constitutional: no acute distress Eyes: PERRL, conjunctivae normal, anicteric sclerae ENMT: external ear and nose normal, oropharynx normal Neck: trachea midline, no thyromegaly Respiratory: normal respiratory effort, lungs clear to auscultation Cardiovascular: RRR, no murmur, no edema Gastrointestinal (Abdomen): normal bowel sounds, soft, nontender, no hepatosplenomegaly Musculoskeletal: no cyanosis or clubbing, extremities motor strength 5/5 Skin: no rashes, warm and dry Neurologic: PERRL, EOMI, accommodation nl, no face palsy, no dysarthria Psychiatric: A+Ox3, euthymic affect Results & Data Vital Signs (Past 12 Hours) Vital Signs Temp Pulse Resp BP BP Pulse Ox 01/18/19 15:09 86 19 112/68 99 01/18/19 11:44 36.8 C 90 18 114/66 97 01/18/19 07:31 37.0 C 63 20 115/68 95 01/18/19 04:00 37.1 C 78 20 112/62 98 (1) Acute renal failure (ARF) Acute renal failure type: unspecified Qualified Code(s): N17.9 - Acute kidney failure, unspecified
[2019-01-19] MEDS: POLYETHYLENE (MIRALAX) 17 GM PACK PO PRN (00:18)
[2019-01-19 05:59] LABS: Hematocrit (blood only) 24.3 % (42-52); Mean Corpuscular Hgb Conc 32.9 g/dL (32-36); Mean Corpuscular Volume 90.3 fL (80-100); Platelet Count 218 K/uL (130-400); RDW Coefficient of Variation 14.5 % (11.5-14.5); RDW Standard Deviation 47.2 fL (36.4-46.3); Red Blood Count 2.69 M/uL (4.7-6.1); White Blood Count 4.75 K/uL (4.8-10.8)
[2019-01-19 06:35] LABS: BUN Creatinine Ratio 18.1 (10-20); Calcium 8.5 mg/dl (8.5-10.1); Creatinine Clr Calc Pharmacy 13.1 ml/min; Est GFR (African American) 13.2; Est GFR (Non-African American) 11.4; Potassium 4.2 mmol/L (3.5-5.1)
[2019-01-19] MEDS: INSULIN ASPART 100 UNITS/ML 3 ML PEN SC SCH ×2 (09:03→12:40)
[2019-01-19] MEDS: DOCUSATE SODIUM 100 MG CAP PO SCH (09:12)
[2019-01-19] MEDS: FINASTERIDE 5 MG TAB PO SCH (09:12)
[2019-01-19] MEDS: BISACODYL 5 MG TABEC PO PRN (09:13)
--- NOTE | 2019-01-19 14:58 | Discharge Summary ---
Date of Service January 19, 2019 Admission HPI Per Admitting Provider DICTATED BY: Thaddeus Reyes MD DATE OF ADMISSION: 01/08/2019 CHIEF COMPLAINT: Abdominal pain, found to have MACI and hyperkalemia. HISTORY OF PRESENT ILLNESS: This is a 73-year-old male with past medical history significant gout, diagnosed with enlarged prostate about 4 years ago, but he did not follow up. He is from [place]. His family doctor is at [place]. Currently, he has changed doctor and he is following with a nurse practitioner,has history of gout. Denies any other medical problems. He is having some abdominal discomfort since about 2-3 weeks, like whenever he leans forward, heavy ball like feeling in his belly and since last 1 week he is having very little amount of urine. He is constipated since the last few days and today also noticed small amount of blood in the stools. He went to the [facility] where he was found to have creatinine of 20.5, potassium of 6.4, and CAT scan of the abdomen and pelvis done, which showed prostatomegaly and obstructive uropathy, also multiple stones in the ureter and kidneys, status post Sewell catheter at [facility] and drained about 3 liters of urine and was transferred here for further management. Now, he is having hematuria in the Sewell bag. The patient says he is feeling somewhat chilly and shaky and he thinks possibly his blood pressure is going up and down, it is going on for the last few days. Denies any headache. Complains of some dizziness. No blurred vision, no sore throat, no difficulty swallowing. No appetite since last couple of days. Denies any chest pain, no shortness of breath, no cough, was feeling nauseous. He had some swelling of the legs, but that is gone now. No rash. Otherwise, until this happened, he was very active. He lives alone. His sister lives in [place]. Principal Diagnosis ACUTE RENAL FAILURE, HYPERKALEMIA, BLOOD IN URINE/HEMATURIA, WITH BLADDER OUTLET OBSTRUCTION SECONDARY TO BLOOD CLOT IN THE URINARY BLADDER/ANEMIA Discharge Exam Constitutional no acute distress Eyes PERRL, conjunctivae normal, anicteric sclerae ENMT external ear and nose normal, oropharynx normal Neck trachea midline, no thyromegaly Respiratory normal respiratory effort, lungs clear to auscultation Cardiovascular RRR, no murmur, no edema Gastrointestinal (Abdomen) normal bowel sounds, soft, nontender, no hepatosplenomegaly Musculoskeletal no cyanosis or clubbing, extremities motor strength 5/5 Skin no rashes, warm and dry Neurologic PERRL, EOMI, accommodation nl, no face palsy, no dysarthria Psychiatric A+Ox3, euthymic affect Discharge Data Allergies Allergy/AdvReac Type Severity Reaction Status Date / Time indomethacin [From Indocin] Allergy Unknown Unknown Verified 01/08/19 23:16 Consultations 01/08/19 23:19 Consult Case Management - Discharge Planning Routine Consult Framing Inspector Routine 01/09/19 08:00 Consult Nephrology Routine Consult Urology Routine Procedures Performed Operation Date: 01/12/19 08:00 Actual Procedures p Cystoscopy, Clot Evacuation, Fulguration of bladder and prostate bleeders(Not Applicable) - Urbano Lopez MD Ordered Studies 01/09/19 05:35 US renal/blad retro comp Urgent 01/09/19 14:32 US point of care ultrasound Routine Hospital Course (1) Acute renal failure (ARF): Admitted with acute renal failure with obstructive uropathy, creatinine was 21 Required dialysis Appreciate nephrology input Last dialysis was on 01/12/2019 Creatinine worsened to 6.425.49-> improved to 4.86-4.5 today Having adequate urine output Patient input from nephrology, Avoid nephrotoxins, contrast studies pt remains hemodynamically stable To be discharged home today, patient wants to relocate to [place] to be near to his daughter and son will need outpatient nephrology follow-up on discharge And given a prescription for 1 week follow-up for lab work: CBC, basic metabolic panel, follow-up with Dr. Terri Ellis until patient is able to establish with a new provider Acute renal failure: Likely due to Obstructive Uropathy/BPH/Nephrolithiasis --Renal US:Severe bilateral hydroureteronephrosis.. Large bladder mass or pseudomass. As this was not seen on CT, neoplasm is considered less likely though not excluded. This could alternatively represent a hematoma or ball of infectious debris. Additional polypoid focus in the bladder lumen is also indeterminate. Urology consulted, appreciate input --S/P Cystoscopy, clot evacuation, fulguration of bladder and prostate bleeders on 01/12/19 -Dr. Urbano Lopez Patient was placed on Sewell catheter and continuous bladder irrigation Hematuria has resolved, CBI discontinued Patient continues to have clear yellow urine, no hematuria for last 2 days Discussed with the urology team Patient will be discharged with Sewell catheter Urology follow-up with [facility] physician group in 2 to 3 weeks Outpatient for voiding trial Patient may need a further work-up, repeat cystoscopy, MRI of kidneys (2) Hematuria: Resolved Possible secondary to hemorrhagic cystitis as per urology Sewell draining clear yellow urine , hematuria and clot retention from hemorrhagic cystitis S/P decompression with Sewell catheter S/P cystoscopy, clot evacuation and fulguration-by [facility] urology Patient is asked to avoid aspirin, all form of anticoagulation and antiplatelets No evidence of hematuria for more than 48 hours Will be discharged home with Sewell, outpatient follow-up at urology [facility] clinic in 2-3 weeks (3) Acute blood loss anemia: Acute blood loss anemia Secondary to hematuria S/P PRBC, FFP, Platelet transfusion Hemoglobin remained stable around 8 Patient is asked to avoid aspirin, antiplatelets, Repeat lab work in 1 week Patient is strongly advised to establish care with a primary care physician, as patient is relocating to [facility] to be in there to his family (4) Hypertension: HTN: Developed hypertensive urgency secondary to acute renal failure BP improved with HD Not requiring any blood pressure meds on discharge (5) BPH (benign prostatic hyperplasia): BPH: PSA 21 Started on Proscar Need to establish care with urology for continued follow-up Constipation Continue bowel regimen Encourage to ambulate Hyperphosphatemia Renvela discontinued Monitor electrolytes CODE STATUS: Full code DVT prophylaxis: SCD and teds, patient is encouraged to ambulate and avoid pharmacological anticoagulation secondary to hematuria Disposition: Melgar is stable to be discharged home today Patient will be relocated to [place] after discharge to be nearby with his son and daughter Spoke with patient's daughter, she will drive to [place] today afternoon from [facility] today to offer patient ride home Family is willing to have initial follow-up with Dr. Lopez and Dr. Ellis, Patient is willing to establish further medical care family physician, urology and nephrology [facility] Total Time Total Time Spent Total Time Spent (In Minutes): Approximately 45 minutes Total Time Includes: Examination of the Patient, Discharge Planning, Medication Reconciliation and Communication With Other Providers Discharge Plan Discharge Items Patient Disposition: Home - Self-Care Reason For Visit: ACUTE RENAL FAILURE Discharge Diagnosis: ACUTE RENAL FAILURE, HYPERKALEMIA, BLOOD IN URINE/HEMATURIA, WITH BLADDER OUTLET OBSTRUCTION SECONDARY TO BLOOD CLOT IN THE URINARY BLADDER/ANEMIA Discharge Goals: Decrease discomfort and Diagnostic testing Activity: Resume your previous activity Non-emergency contact: Primary Care Provider Call non-emergency contact if: you have any medication questions Follow-up/Referrals: Urbano Lopez MD [Physician] - Terri Bateman MD, PhD [Physician] - Marichuy Yip CRNP [Primary Care Provider] - Diet: Heart Healthy and Low Potassium (2gm) Other Ambulatory Orders: Basic Metabolic Panel (Routine) Timeframe: 20190122 Location: Determined by Patient Ordered By: Sayda Russo Complete Blood Count no Diff (Routine) Timeframe: 20190122 Location: Determined by Patient Ordered By: Sayda Russo Add Provider Instructions: Please establish care with the family physician in [place] It is very important for you to have close follow-up with nephrology and urol ogy: For advanced renal failure Please establish care with nephrology (kidney specialist) in [place] for continued monitoring and management of chronic kidney disease Lab work: Basic metabolic panel, complete blood count in a week Follow-up with nephrology Dr. Terri Ellis in few weeks You can call: [phone] with any questions about nephrology care Follow-up with urology Dr. Urbano Lopez in clinic please call office to schedule appointment WILL BE DISCHARGE WITH SEWELL CATHETER, FOLLOW-UP WITH UROLOGY OFFICE-FOR VOIDING TRIAL:-TEST TO EVALUATION IF YOU ARE ABLE TO EMPTY YOUR BLADDER AFTER SEWELL CATHETER IS TAKEN OUT Do not take aspirin, naproxen, Advil, ibuprofen, Aleve, Motrin: This is a drug belongs NSAID's group which will cause worsening of your kidney function Prescriptions: New finasteride [Proscar] 5 mg Tablet 5 mg PO QAM 30 Days Qty: 30 RF: 0 Discontinued allopurinol 100 mg tablet PO DAILY RF: 0 Stand-Alone Forms: My [facility]/Other Patient Handouts: Remove Catheter Sewell, Catheter Bag Urinary Empty Clean, Catheter Indwelling Urinary Dc, Leg Bag Care Dc Discharge Orders: Discharge Order (Routine); Ordered 01/19/19 Ordered By: Sayda Russo Admission Data Admit Date/Time: 01/08/19 22:21 Attending Provider: Sayda Russo Admit Provider: Thaddeus Reyes Primary Care Provider: Marichuy Yip Other Providers: Franck Portillo ; Sumit Valentin ; Terri Bateman ; Jluis Cheung Service: Telemetry Medical
[2019-01-19] MEDS ORDERED: INSULIN ASPART 100 UNITS/ML 3 ML PEN SC SCH (14:59)
--- NOTE | 2019-01-19 16:06 | Nephrology Progress Note ---
Date of Service January 19, 2019 Assessment & Plan (1) Acute renal failure (ARF): acute renal failure likely due to chronic obstructive uropathy; plateau'd creatinine today after last dialysis on 01/12; + polyuric. had 3 sessions of acute dialysis. He also continues bladder irrigation which complicates measurement of urine output. serum chemistries acceptable. has also had issues w anemia needing pRBC > for now monitor (had pRBC on 01/12) -from medical standpoint reasonable candidate for epo; we can arrange as OP -needs bmp/ cbc on 01/23 -will arrange f/u w/ [facility] in [place] or [facility] (pt coming from [place]) next week - have sent message in [employer]; can also give pt # for Specialties Nurse [phone] for him to call if ? about his renal care -some tachycardia noted today which is new >> recommend orthostatic check; he is about 5L negative past 72 hrs (post obstructive autodiuresis) > if orthostatic may need to delay d/c until he can be better hydrated; do note however he is not orthostatic on exam and no sx of presyncope Care coordinated w/ Dr Russo (2) Obstructive and reflux uropathy: CAT scan showed evidence of obstructive uropathy and multiple kidney stones at the outside hospital. Renal U/S showed bilateral hydronephrosis. per urology; suspect bladder mass on u/s is clot; no mass seen on cysto Subjective seen on rounds at 1445; female family member at bedside; many questions about d/c plan. ambulating, no sob, no abd/chest pain, no edema, eating heartily, no issues w/ christopher Review of Systems Review of Systems: All systems reviewed & are unremarkable except as noted in HPI & below Physical Exam Constitutional: well developed and well nourished Eyes: EOM intact bilaterally ENMT: Ears: no external ear abnormality Nose: no external nose abnormality Mouth: + dry oral mucous membranes Neck: no nuchal rigidity Respiratory: normal respiratory effort Auscultation: + diminished lung sounds Cardiovascular: RRR, no murmur, no edema Gastrointestinal (Abdomen): Inspection/Auscultation: + abdomen distended and normal bowel sounds Percussion/Palpation: abdomen soft; abdomen nontender Musculoskeletal: Extremities: strength 5/5 throughout Skin: no rashes, warm and dry Neurologic: chaves, fluent speech, notremor Psychiatric: A+Ox3, euthymic affect Genitourinary: christopher w/ ample light yetllow urine Results & Data Vital Signs (Past 12 Hours) Vital Signs Temp Pulse Pulse Pulse Pulse Resp BP 01/19/19 15:30 36.6 C 105 H 85 82 18 117/76 01/19/19 11:31 36.6 C 82 18 117/76 01/19/19 08:00 82 01/19/19 07:34 36.8 C 112 H 21 100/65 01/19/19 07:32 36.4 C L 107 H 20 BP Pulse Ox 01/19/19 15:30 114/70 99 01/19/19 11:31 99 01/19/19 08:00 01/19/19 07:34 95 01/19/19 07:32 114/70 91 Laboratory Results Abnormal lab results 01/18/19 01/18/19 01/19/19 Range/Units 16:22 20:50 05:40 WBC (4.8-10.8) K/uL RBC (4.7-6.1) M/uL Hgb (14.0-18.0) g/dL Hct (42-52) % RDW Std Deviation (36.4-46.3) fL BUN 88 H (7-18) mg/dl Creatinine 4.76 H* (0.6-1.4) mg/dl Glucose 105 H (70-99) mg/dl POC Glucose 112 H 128 H (70-99) 01/19/19 01/19/19 01/19/19 Range/Units 05:40 07:19 11:46 WBC 4.75 L (4.8-10.8) K/uL RBC 2.69 L (4.7-6.1) M/uL Hgb 8.0 L (14.0-18.0) g/dL Hct 24.3 L (42-52) % RDW Std Deviation 47.2 H (36.4-46.3) fL BUN (7-18) mg/dl Creatinine (0.6-1.4) mg/dl Glucose (70-99) mg/dl POC Glucose 112 H 126 H (70-99) (1) Acute renal failure (ARF) Acute renal failure type: unspecified Qualified Code(s): N17.9 - Acute kidney failure, unspecified
== END 2019-01-19 21:00 | disposition home or self-care (01) | DRG 669 ==
LOC: 1E 22:21 → SUATTDRO 22:21 → 2N 01-11 16:25